=== PATIENT | female | born 1990 | race Caucasian/White ===

== ENCOUNTER 2017-04-20 08:56 | Inpatient (IN) | payer OTHER, SELFPAY | END 2017-04-22 13:20 | disposition home or self-care (01) | DRG 603 | PROVIDERS: Admitting Provider Family Medicine; Emergency Provider Emergency Medicine; Visit Provider Family Medicine | DX: L02.414 Cutaneous abscess of left upper limb (principal); F11.20 Opioid dependence, uncomplicated; L02.512 Cutaneous abscess of left hand; F14.20 Cocaine dependence, uncomplicated; B95.4 Other streptococcus as the cause of diseases classified elsewhere; B95.62 Methicillin resistant Staphylococcus aureus infection as the cause of diseases classified elsewhere; L03.012 Cellulitis of left finger; L03.114 Cellulitis of left upper limb | CPT/HCPCS: 25028; 26989; 36415; 73130; 80048; 80053; 80202; 80305; 81025; 83605; 85025; 85651; 86140; 87040; 87070; 87075; 87077; 87186; 90471; 90714; 99282; 99284; J0131; J2405; J3370 ==

== ENCOUNTER → 2018-12-23 14:25 | Outpatient (CLI) | payer OTHER, SELFPAY ==
[2018-12-23 16:14] LABS: Basophils # 0.1 K/mm3 (0-0.2); Eosinophils # 0.1 K/mm3 (0.0-0.4); Monocytes # 0.7 K/mm3 (0.1-1.0)
[2018-12-23 16:53] LABS: Basophils % 0.6 % (0.1-2.0); Eosinophils % 1.2 % (0.1-12.0); Hematocrit 47.6 % (37.0-47.0); Hemoglobin 15.9 g/dL (12.2-16.2); Lymphocytes # 3.4 K/mm3 (0.7-4.5); Lymphocytes % 29.9 % (10-50); Mean Corpuscular HGB Conc 33.5 g/dL (31.8-35.4); Mean Corpuscular Hemoglobin 31.1 pg (27.0-31.2); Mean Corpuscular Volume 92.9 fl (81-99); Monocytes % 6.3 % (1.7-9.3); Neutrophils # 7.1 K/mm3 (1.8-7.8); Neutrophils % 61.9 % (37.0-80.0); Platelet Count 277 K/mm3 (142-424); Red Blood Count 5.12 M/mm3 (4.20-5.40); Red Cell Distribution Width 13.5 % (11.5-17.5); White Blood Count 11.4 K/mm3 (4.8-10.8)
[2018-12-23 20:29] LABS: Amphetamine/Metha Screen,Urine Negative ng/mL (<1000); Barbiturates Screen,Urine Negative ng/mL (<200); Benzodiazepines Screen,Urine Negative ng/mL (<200); Cannabinoid Screen,Urine Negative ng/mL (<50); Cocaine Screen,Urine Negative ng/mL (<300); Methadone Screen,Urine Negative ng/mL (<300); Opiate Screen,Urine Negative ng/mL (<300); Phencyclidine Screen,Urine Negative ng/mL (<25)
== END ==
PROVIDERS: Visit Provider Obstetrics & Gynecology
DX: Z34.90 Encounter for supervision of normal pregnancy, unspecified, unspecified trimester (principal)
CPT/HCPCS: 36415; 80305; 85025

== ENCOUNTER → 2018-12-31 11:24 | Outpatient (CLI) | payer OTHER, SELFPAY ==
[2018-12-31 12:41] LABS: Basophils # 0.1 K/mm3 (0-0.2); Basophils % 0.5 % (0.1-2.0); Eosinophils # 0.2 K/mm3 (0.0-0.4); Eosinophils % 1.7 % (0.1-12.0); Hematocrit 45.2 % (37.0-47.0); Hemoglobin 15.1 g/dL (12.2-16.2); Lymphocytes # 3.2 K/mm3 (0.7-4.5); Lymphocytes % 35.7 % (10-50); Mean Corpuscular HGB Conc 33.4 g/dL (31.8-35.4); Mean Corpuscular Hemoglobin 31.2 pg (27.0-31.2); Mean Corpuscular Volume 93.3 fl (81-99); Mean Platelet Volume 7.4 fl (7.4-10.4); Monocytes # 0.6 K/mm3 (0.1-1.0); Monocytes % 6.4 % (1.7-9.3); Neutrophils % 55.6 % (37.0-80.0); Platelet Count 288 K/mm3 (142-424); Red Blood Count 4.85 M/mm3 (4.20-5.40); Red Cell Distribution Width 13.5 % (11.5-17.5)
[2018-12-31 18:22] LABS: Thyroid Stimulating Hormone 0.56 uIU/ml (0.358-3.740)
[2019-01-01 06:07] LABS: HIV Screen 4th Generation wRfx Non Reactive (Non Reactive)
[2019-01-02 09:45] LABS: Hepatitis B Surface Antigen Negative (Negative); Rapid Plasma Reagin Ab Titer Non Reactive (NonRea<1:1); Rubella Antibodies, IgG 3.27 index (Immune >0.99)
== END ==
PROVIDERS: Visit Provider Obstetrics & Gynecology
DX: Z34.90 Encounter for supervision of normal pregnancy, unspecified, unspecified trimester (principal)
CPT/HCPCS: 36415; 84443; 85025; 86592; 86762; 86850; 87340

== ENCOUNTER → 2019-01-30 10:12 | Outpatient (CLI) | payer OTHER, SELFPAY ==
[2019-01-31 10:51] LABS: Hep A Ab, IgM Negative (Negative); Hep A Ab, Total Positive (Negative); Hep B Core Ab, Total Negative (Negative)
[2019-02-02 14:22] LABS: HIV Screen 4th Generation wRfx Non Reactive (Non Reactive); Hep B Surface Ab, Qual Reactive (.); Hepatitis B Surface Antigen Negative (Negative)
== END ==
PROVIDERS: Visit Provider Nurse Practitioner Family
DX: Z87.898 Personal history of other specified conditions (principal); B19.20 Unspecified viral hepatitis C without hepatic coma
CPT/HCPCS: 36415; 86703; 86704; 86706; 86708; 87340; 87522; G0432

== ENCOUNTER → 2019-03-11 15:45 | Outpatient (CLI) | payer OTHER, SELFPAY ==
[2019-03-11 16:23] LABS: Basophils % 0.2 % (0.1-2.0); Eosinophils # 0.2 K/mm3 (0.0-0.4); Eosinophils % 1.1 % (0.1-12.0); Hematocrit 39.3 % (37.0-47.0); Hemoglobin 13.3 g/dL (12.2-16.2); Lymphocytes # 3.4 K/mm3 (0.7-4.5); Lymphocytes % 24.3 % (10-50); Mean Corpuscular HGB Conc 33.9 g/dL (31.8-35.4); Mean Corpuscular Hemoglobin 31.6 pg (27.0-31.2); Mean Corpuscular Volume 93.1 fl (81-99); Mean Platelet Volume 8.7 fl (7.4-10.4); Monocytes # 1.2 K/mm3 (0.1-1.0); Monocytes % 8.4 % (1.7-9.3); Neutrophils # 9.4 K/mm3 (1.8-7.8); Platelet Count 247 K/mm3 (142-424); Red Blood Count 4.22 M/mm3 (4.20-5.40); Red Cell Distribution Width 12.8 % (11.5-17.5); White Blood Count 14.2 K/mm3 (4.8-10.8)
[2019-03-11 16:32] LABS: Prothrombin Time 9.4 seconds (9.4-11.8)
[2019-03-11 18:48] LABS: Alanine Aminotransferase 25 U/L (12-78); Albumin/Globulin Ratio 0.9 (1.1-1.8); Alkaline Phosphatase 61 U/L (46-116); Anion Gap 12.9 mEq/L (5-15); Aspartate Amino Transferase 16 U/L (15-37); Bilirubin,Total 0.4 mg/dL (0.2-1.0); Blood Urea Nitrogen 7 mg/dL (7-18); Calcium 8.6 mg/dL (8.5-10.1); Carbon Dioxide 23 mmol/L (21.0-32.0); Chloride 104 mmol/L (98-107); Creatinine,Serum 0.46 mg/dL (0.55-1.02); Estimated Glomerular Filt Rate 162 ml/min (>60); GFR (African American) 196 ML/MIN (>60); Globulin 3.5 gm/dl (1.3-3.2); Glucose 87 mg/dL (74-106); Potassium 3.9 mmoL/L (3.5-5.1); Sodium 136 mmol/L (136-145); Total Protein,Serum 6.5 gm/dL (6.4-8.2)
[2019-03-13 08:13] LABS: Hep A Ab, Total Positive (Negative); Hepatitis B Surface Antigen Negative (Negative)
[2019-03-13 08:17] LABS: Hepatitis B Core Antibody IgM Negative (Negative); Hepatitis B Surf Ab Quant 39.1 mIU/mL (Immunity>9.9)
[2019-03-13 08:18] LABS: HIV Screen 4th Generation wRfx Non Reactive (Non Reactive)
[2019-03-14 12:12] LABS: AFP Value 41.2 ng/mL (.); DIA MoM 1.82 (.); DSR (Second Trimester) 1 IN 5083 (.); Gest. Age on Collection Date 17.1 WEEKS (.); Maternal Age At EDD 28.9 yr (.); OSBR Risk 1 IN 9231 (.); Results Report (.); hCG MoM 0.37 (.); hCG Value 12134 mIU/mL (.); uE3 MoM 1.44 (.); uE3 Value 1.61 ng/mL (.)
[2019-03-14 18:48] LABS: Gestat. Age Based On EDD (.)
[2019-03-17 00:07] LABS: Hepatitis C Genotype 1a (.)
[2019-03-17 03:36] LABS: ALT (SGPT) P5P 20 IU/L (0-40); Alpha 2-Macroglobulins, Qn 237 mg/dL (110-276); Apolipoprotein A-1 227 mg/dL (116-209); Bilirubin, Total 0.2 mg/dL (0.0-1.2); Fibrosis Score 0.03 (0.00-0.21); GGT 22 IU/L (0-60); Haptoglobin 123 mg/dL (34-200); Necroinflammat Activity Grade A0-No activity (.); Necroinflammat Activity Score 0.05 (0.00-0.17)
== END ==
PROVIDERS: Internal Medicine; Visit Provider Obstetrics & Gynecology
DX: Z34.90 Encounter for supervision of normal pregnancy, unspecified, unspecified trimester (principal)
CPT/HCPCS: 36415; 80053; 81596; 82106; 85025; 85610; 86703; 86704; 86706; 86708; 87340; 87522; G0432

== ENCOUNTER → 2019-04-30 08:27 | Outpatient (CLI) | payer OTHER, SELFPAY ==
--- NOTE | 2019-04-30 08:28 | US_ITS ---
PROCEDURE: US OB /MATERNAL DETAIL CLINICAL INDICATION: US OB Complete COMPARISON: No exams were available for comparison FINDINGS: Single viable intrauterine gestation. Cephalic position. Placenta: Anteriorplacenta grade 1. There is average amount fluid. The cervix appears satisfactory. Closed and measuring 3.5 cm in length. Complete survey performed and was unremarkable on the submitted images as in PACS. No discrete anomalies identified on survey imaging by technologist. Active fetus. Three-vessel cord with satisfactory umbilical cord insertion. 4- chamber heart noted. Survey of brain & ventricles Unremarkable. Face and neck survey unremarkable. Diaphragm and chest views unremarkable. Abdomen: Both kidneys noted and unremarkable. Stomach noted and satisfactory. Spine: Survey of the spine satisfactory with no anomalies identified nor imaged. Both arms and legs noted. Amniotic Fluid: Adequate. Maternal adnexa: No significant findings. Average ultrasound age is 24 weeks 6 days. Estimated due date by ultrasound is 08/14/2019. The following parameters are obtained: BPD 25 weeks 1 day, OFD 25 weeks 3 days, HC 24 weeks 5 days, AC 25 weeks 1 day, FL 24 weeks 0 days, cerebellum 25 weeks 4 days, humerus 24 weeks 4 days. Estimated weight is 717 g which is 57th percentile. All parameters correlate. No obvious anomalies. IMPRESSION: Live IUP at 24 weeks 6 days. No obvious anomalies. Please see above for detail Dictated by: Enio Carson MD 05/02/2019 12:39 Electronically signed by Enio Carson MD in [place] 05/02/2019 12:39
--- NOTE | 2019-04-30 08:37 | US_ITS ---
PROCEDURE: US ABDOMEN LIMITED CLINICAL INDICATION: RUQ PAIN COMPARISON: No exams were available for comparison FINDINGS: PANCREAS: Unremarkable. No obvious mass or abnormal fluid collection. No ductal dilatation LIVER: No focal liver lesions demonstrated. Homogeneous echogenicity. No intrahepatic biliary ductal dilatation evident. There is appropriate direction of blood flow within a non dilated portal vein RIGHT KIDNEY: There is some minimal ectasia of the right renal collecting system. GALLBLADDER: Gallstones are present. No gallbladder wall thickening, pericholecystic fluid, or biliary dilatation is evident. IMPRESSION: Cholelithiasis. Minimal ectasia right renal collecting system Dictated by: Enio Carson MD 05/02/2019 12:35 Electronically signed by Enio Carson MD in [place] 05/02/2019 12:35
[2019-04-30 10:05] LABS: Basophils # 0.1 K/mm3 (0-0.2); Basophils % 0.4 % (0.1-2.0); Eosinophils # 0.2 K/mm3 (0.0-0.4); Hematocrit 38.2 % (37.0-47.0); Hemoglobin 13.2 g/dL (12.2-16.2); Lymphocytes # 3.9 K/mm3 (0.7-4.5); Lymphocytes % 25.3 % (10-50); Mean Corpuscular HGB Conc 34.6 g/dL (31.8-35.4); Mean Corpuscular Hemoglobin 31.9 pg (27.0-31.2); Mean Corpuscular Volume 92.2 fl (81-99); Mean Platelet Volume 8.4 fl (7.4-10.4); Monocytes # 1.2 K/mm3 (0.1-1.0); Neutrophils # 10.1 K/mm3 (1.8-7.8); Neutrophils % 65.3 % (37.0-80.0); Platelet Count 241 K/mm3 (142-424); Red Blood Count 4.15 M/mm3 (4.20-5.40); Red Cell Distribution Width 13.3 % (11.5-17.5); White Blood Count 15.5 K/mm3 (4.8-10.8)
[2019-04-30 10:39] LABS: MANUAL DIFFERENTIAL MANUAL DIFFERENTIAL (MANUAL DIFF)
[2019-04-30 11:21] LABS: Eosinophils % 1 % (0-3); Lymphocytes % 22 % (10-50); Monocytes % 9 % (2-9); Neutrophils % 68 % (42-76); Total Cells Counted 100
[2019-04-30 11:22] LABS: Platelet Estimate Normal; RBC Morphology Normal
[2019-04-30 12:18] LABS: Alanine Aminotransferase 23 U/L (12-78); Albumin Level 2.8 gm/dL (3.4-5.0); Albumin/Globulin Ratio 0.8 (1.1-1.8); Alkaline Phosphatase 75 U/L (46-116); Anion Gap 14.6 mEq/L (5-15); Aspartate Amino Transferase 14 U/L (15-37); Bilirubin,Total 0.2 mg/dL (0.2-1.0); Blood Urea Nitrogen 9 mg/dL (7-18); Calcium 8.3 mg/dL (8.5-10.1); Carbon Dioxide 23 mmol/L (21.0-32.0); Chloride 104 mmol/L (98-107); Creatinine,Serum 0.57 mg/dL (0.55-1.02); Estimated Glomerular Filt Rate 126 ml/min (>60); GFR (African American) 153 ML/MIN (>60); Globulin 3.6 gm/dl (1.3-3.2); Glucose 86 mg/dL (74-106); Potassium 3.6 mmoL/L (3.5-5.1); Sodium 138 mmol/L (136-145); Total Protein,Serum 6.4 gm/dL (6.4-8.2)
== END ==
PROVIDERS: PCP Nurse Practitioner Family; Visit Provider Obstetrics & Gynecology
DX: Z36.0 Encounter for antenatal screening for chromosomal anomalies (principal); R76.8 Other specified abnormal immunological findings in serum
CPT/HCPCS: 36415; 76705; 76811; 80053; 85007; 85025

== ENCOUNTER → 2019-05-25 10:52 | Outpatient (CLI) | payer OTHER, SELFPAY ==
[2019-05-25 11:39] LABS: Glucose,Fasting 85 mg/dL (60-105)
[2019-05-25 12:50] LABS: Glucose 1 Hour 148 mg/dL (74-106)
== END ==
PROVIDERS: Visit Provider Obstetrics & Gynecology
DX: Z34.90 Encounter for supervision of normal pregnancy, unspecified, unspecified trimester (principal)
CPT/HCPCS: 36415; 82951

== ENCOUNTER 2019-06-29 20:15 | Outpatient (CLI) | payer MEDICAID, SELFPAY ==
[2019-06-29 20:33] VITALS: BP 124/73; PULSE 99; RESP 16; TEMP 36.7; O2SAT 98; BMI 32.9
== END 2019-06-29 21:20 | disposition home or self-care (01) ==
LOC: OBOUT 20:16 → OB 20:17
PROVIDERS: PCP Emergency Medicine; Visit Provider Obstetrics & Gynecology
DX: O36.8130 Decreased fetal movements, third trimester, not applicable or unspecified (principal); Z3A.32 32 weeks gestation of pregnancy
CPT/HCPCS: 59025; G0463

== ENCOUNTER → 2019-07-14 12:47 | Outpatient (CLI) | payer MEDICAID, SELFPAY ==
--- NOTE | 2019-07-14 12:47 | US_ITS ---
PROCEDURE: US OB FOLLOW UP CLINICAL INDICATION: US OB Growth KIMMY- Chronic anticoagulants Large for gestational age COMPARISON: US OB /MATERNAL DETAIL from 04/30/2019 FINDINGS: There is a single live fetus which is in cephalic presentation. heart and body motion noted. Average ultrasound age is 36 weeks 2 days. BPD 36 weeks 2 days, OFD 38 weeks 3 days, HC 36 weeks 2 days, AC 38 weeks 3 days, FL 34 weeks 1 day. The femur length is somewhat small within FL/AC of 19 percent with normal being 20-24 percent. FL/BPD is 74 percent with normal 71-87 percent. Estimated weight is 3065 g which is 92 percentile. Placenta is anterior the and grade 2. The KIMMY is 12 cm. IMPRESSION: Live IUP at 36 weeks 2 days with an estimated weight of 3065 g which is 92 percentile which is large for gestational age. Please see above for detail Dictated by: Enio Carson MD 07/14/2019 18:52 Electronically signed by Enio Carson MD in [place] 07/14/2019 18:52
== END ==
PROVIDERS: PCP Emergency Medicine; Visit Provider Obstetrics & Gynecology
DX: Z79.01 Long term (current) use of anticoagulants (principal)
CPT/HCPCS: 76816

== ENCOUNTER → 2019-07-21 17:36 | Outpatient (CLI) | payer MEDICAID, SELFPAY | PROVIDERS: Visit Provider Obstetrics & Gynecology | DX: Z34.90 Encounter for supervision of normal pregnancy, unspecified, unspecified trimester (principal) | CPT/HCPCS: 86403 ==

== ENCOUNTER 2019-08-10 15:41 | Inpatient (IN) ==
[2019-08-10 17:13] LABS: Microscopic, Urine URINE MICROSCOPIC (MICROSCOPIC)
[2019-08-10 17:55] LABS: Basophils # 0.1 K/mm3 (0-0.2); Basophils % 0.3 % (0.1-2.0); Eosinophils # 0.2 K/mm3 (0.0-0.4); Eosinophils % 1.1 % (0.1-12.0); Hematocrit 39.9 % (37.0-47.0); Hemoglobin 13.5 g/dL (12.2-16.2); Lymphocytes # 4.6 K/mm3 (0.7-4.5); Lymphocytes % 26.7 % (10-50); Mean Corpuscular HGB Conc 33.9 g/dL (31.8-35.4); Mean Platelet Volume 9.3 fl (7.4-10.4); Monocytes # 1.6 K/mm3 (0.1-1.0); Monocytes % 9.1 % (1.7-9.3); Neutrophils # 10.8 K/mm3 (1.8-7.8); Neutrophils % 62.7 % (37.0-80.0); Platelet Count 240 K/mm3 (142-424); Red Blood Count 4.33 M/mm3 (4.20-5.40); Red Cell Distribution Width 13.9 % (11.5-17.5); White Blood Count 17.2 K/mm3 (4.8-10.8)
[2019-08-10 18:19] LABS: Appearance,Urine CLEAR (Clear); Bilirubin,Urine Negative (Negative); Blood, Urine Negative (Negative); Color,Urine YELLOW (Yellow); Glucose,Urine (UA) Negative (Negative); Ketones,Urine Negative (Negative); Leukocyte Esterase,Urine 1+ (Negative); Protein,Urine Negative (Negative); Specific Gravity, Urine >= 1.030 (1.005-1.030); Urobilinogen,Urine 0.2 EU/dl (0.2)
[2019-08-10 18:32] LABS: Amphetamine/Metha Screen,Urine Negative ng/ml (<1000); Bacteria,Urine 2+ /lpf; Benzodiazepines Screen,Urine Negative ng/ml (<200)
[2019-08-10 18:33] LABS: Barbiturates Screen,Urine Negative ng/ml (<200)
[2019-08-10 18:34] LABS: Cannabinoid Screen,Urine Negative ng/ml (<50); Cocaine Screen,Urine Negative ng/ml (<300)
[2019-08-10 18:35] LABS: Methadone Screen,Urine Negative ng/ml (<300); Opiate Screen,Urine Negative ng/ml (<300)
[2019-08-10 18:36] LABS: Phencyclidine Screen,Urine Negative ng/ml (<25)
[2019-08-10 20:33] LABS: Lymphocytes % 26 % (10-50); Monocytes % 6 % (2-9); Neutrophils % 68 % (42-76); RBC Morphology Normal; Total Cells Counted 100
--- NOTE | 2019-08-11 08:08 | Progress Note ---
[facility] Anesthesia Checklist - Patient Identification Patient Identification: Arm Band, Verbal (Name & ) - Structural Data Admitted From: Home Planned Operative Procedure/s: labor epidural Consent for Planned Operative Procedure(s) Verified: Yes Verified Documents: History and Physical - NPO Status Verified Time NPO: 00:00 - Chart Verification Results Verified: CBC, BMP - Additional verifications Patient : Yes Anesthesia Reactions: No Hx Blood Transfusions: No Blood Transfusion Reaction: No Cephalosporin Allergy: No Previous Colonoscopy: No - Cardiovascular Assessment Heart Sounds: S1 & S2 Pulse Strength: Baseline Pulse Rhythm: Regular Peripheral Edema: No - Airway Assessment C-Spine Mobility Assessed: Yes TMJ Mobility Assessed: Yes Dentition: Good Dentition - Neurological Assessment Level of Consciousness: Awake, Alert, Appropriate Hx Seizures: No Numbness or tingling in extremities: No - Anesthesia Plan Anesthesia Risk discussed: Yes ASA Class: II Anesthesia Type: Epidural [facility] History I have reviewed the patient's past medical history: Yes Medical History: Reports:: Deep Vein Thrombosis *Have you ever received a pneumonia vaccine?: No *Have you received a flu vaccine this season?: Yes Anesthesia experience/problems:: none Laterality Cases: Bilateral: Tonsillectomy Other Surgeries: Yes: Other. No: Amputation: No Fractures: No - *Social History Smoking Status: Current every day smoker Tobacco Type: cigarettes # Packs/Day (cigarettes): 0 Alcohol Intake: never Alcohol Intake Frequency:: other Substance Use Type: former substance user, heroin *Occupational Status:: unemployed Housing: house Household Members: family *Travel in the last 8 weeks: None Family Hx:: No significant family history Para: 1
--- NOTE | 2019-08-11 09:37 | Pharmacy Consult Notes ---
[facility] Pharmacy VTE Monitoring - Patient Demographics Admission date: 08/11/19 Report Date: 08/11/19 Time: 09:37 Allergies/Adverse Reactions: Patient Allergies No Known Allergies Allergy (Verified 08/04/19 11:17) Height: 1.57 m Weight: 86.636 kg - VTE Risk Labs: VTE Related Lab Results Hgb 13.5 g/dL (12.2-16.2) 08/10/19 16:50 Hct 39.9 % (37.0-47.0) 08/10/19 16:50 Plt Count 240 K/mm3 (142-424) 08/10/19 16:50 Clinical Trial Participant: No - Prophylaxis VTE Prophylaxis Ordered?: Yes Types of VTE Prophylaxis: IPCS Knee High
--- NOTE | 2019-08-11 14:19 | Progress Note ---
Labor Note - Subjective: Date: 08/11/19 Time: 10:11 Comment:: 39 week IOL complicated by Hepatitis C, h/o DVT with current anticoagulation therapy, LGA infant and tobacco abuse Last heparin dose was last evening Contractions are regular but small intensity by MVU She is comfortable with epidural heart tracing has remained reassuring - Objective: NST:: Reactive Contractions:: every 2-3 minutes Cervical Dilation:: 3 Effacement:: 25% Station: -2 Membranes: artificially ruptured Comment:: Amniotomy performed without difficulty or complication Copious clear fluid noted with AROM IUPC placed without complication or difficulty Following amniotomy, heart rate deceleration was noted and did not respond to maternal positioning or supplemental O2 Maternal pulse ox gave reading of 64 and external monitor put heart rate at 62 The patient was counseled that it was our preference to avoid placing a scalp electrode in patients with hepatitis C, in order to decrease potential transmission of this virus to the fetus, but because of the apparent bradycardia noted on the external monitor, an internal monitor with a scalp electrode was necessary in order to provide appropriate intervention, if needed, for the fetus and she consented to having the scalp electrode placed Once the scalp electrode was placed, the heart tones were noted to be in the 100's and continued to rise to 130 With the next contraction, a deceleration was noted in the heart rate, but lasted less than 1 minute and had spontaneous resolution Pitocin was discontinued during this time and will be left off until the heart tracing has returned to a stable and reassuring pattern - Assessment: Patient Problems: All Active Problems 39 weeks gestation of (Acute) Bronchitis (Acute) Large for gestational age fetus (Acute) Glucose intolerance of (Acute) Tobacco smoking affecting (Acute) History of intravenous drug abuse (Acute) History of DVT of lower extremity (Acute) (Acute) Hepatitis C (Acute) Medical clearance for incarceration (Acute) Abscess of forearm, left (Acute) Abscess of left hand (Acute) - Plan: Comment:: Pitocin will be resumed once heart tracing has returned to a stable and reassuring pattern Patient was counseled about the medical necessity of the scalp electrode for monitoring the heart rate, as well as the potential increased risk of transmission of hepatitis C to the fetus; 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
--- NOTE | 2019-08-11 19:12 | Progress Note ---
Labor Note - Subjective: Date: 08/11/19 Time: 18:45 Comment:: Regular contractions with sufficient MVU Cervix progressed to 7cm and then complete and 0 station Having heart rate decelerations with contractions and not resolving with changes in maternal position or oxygen Attempted to push from 0 station for delivery and vertex did not descend at all, but heart rate had a prolonged deceleration Will proceed to OR for primary CS for non-reassuring status - Assessment: Patient Problems: All Active Problems 39 weeks gestation of (Acute) Bronchitis (Acute) Large for gestational age fetus (Acute) Glucose intolerance of (Acute) Tobacco smoking affecting (Acute) History of intravenous drug abuse (Acute) History of DVT of lower extremity (Acute) (Acute) Hepatitis C (Acute) Medical clearance for incarceration (Acute) Abscess of forearm, left (Acute) Abscess of left hand (Acute)
--- NOTE | 2019-08-11 20:31 | Operative Note ---
Date of procedure: 08/11/19 Pre-op Diagnosis:: 1. IUP @ 39 0/7 weeks 2. heart rate decelerations 3. LGA 4. Maternal Hepatitis C infection 5. H/O DVT 6. Tobacco abuse Post-op Diagnosis:: 1. IUP @ 39 0/7 weeks 2. heart rate decelerations 3. LGA 4. Maternal Hepatitis C infection 5. H/O DVT 6. Tobacco abuse Procedure performed:: Primary low transverse c section Surgeon:: Columba Avina MD Director Of In Service Education(s):: Marcin Richard MD HOME CARE NURSE:: Demetri Butler Anesthesia: epidural Estimated blood loss (mL): 500 Operative findings:: Vigorous male infant with apgars of 9 & 10 Operative note:: The patient was taken to the OR and epidural was confirmed adequate. The patient had an extensive h/o IV drug abuse and had been stuck multiple times unsuccessfully before IV access had been obtained in her left breast. This IV infiltrated shortly before the time of her c section and was able to be replaced by a 22 gauge in her left ankle, which was still running successfully at the time she arrived in the OR. She was prepped and draped in normal sterile fashion. A pfannenstiel skin incision was made with the scalpel and carried down to the fascia. The fascia was incised in the midline and sharply dissected off the rectus muscles. The muscles were in the midline and the peritoneum was entered sharply and extended bluntly. The Darren-O self retaining retractor was placed in the abdomen and a bladder flap was created. The uterus was incised in the lower uterine segment in a transverse fashion and extended bluntly. The infant was delivered in controlled fashion, without complication or shoulder dystocia. The infant was vigorous at and handed to awaiting pediatricians for evaluation after cord clamped and cut. Cord blood was collected and a cord segment was preserved. The placenta was manually extracted and noted to be intact. The uterus was repaired with 0-vicryl in a running/locked fashion. A second layer was placed for hemostasis. The peritoneum was closed with 2-0 vicryl in a running fashion. The fascia was closed with #1 vicryl in a running fashion. The subcutaneous fat was closed with 2-0 vicryl in an interrupted fashion. The skin was closed with danica. The patient tolerated the procedure well. Sponge, lap, needle and instrument counts were correct x 2. She was taken to PACU awake and in stable condition. EBL: 500cc Condition: stable Disposition: PACU Specimens:: Placenta Complications:: none
--- NOTE | 2019-08-11 20:33 | Progress Note ---
[facility] Anesthesia Record Part I Intake, IV Amount: 2,500 Estimated blood loss (mL): 500 Urine output (mL): 350 Blood Pressure: 108/62 SaO2: 95 Pulse Rate: 75 Respiratory Rate: 12 Temperature: 97.5 F Patient is:: Awake, Stable Stable to PACU at:: 20:25
[2019-08-12 06:58] LABS: Basophils # 0.3 K/mm3 (0-0.2); Basophils % 0.9 % (0.1-2.0); Eosinophils # 0.1 K/mm3 (0.0-0.4); Eosinophils % 0.3 % (0.1-12.0); Hematocrit 29.1 % (37.0-47.0); Hemoglobin 9.9 g/dL (12.2-16.2); Lymphocytes # 6.8 K/mm3 (0.7-4.5); Lymphocytes % 21.3 % (10-50); Mean Corpuscular HGB Conc 34.1 g/dL (31.8-35.4); Mean Corpuscular Volume 92.1 fl (81-99); Mean Platelet Volume 10.7 fl (7.4-10.4); Monocytes # 2.5 K/mm3 (0.1-1.0); Monocytes % 7.7 % (1.7-9.3); Neutrophils # 22.4 K/mm3 (1.8-7.8); Neutrophils % 69.8 % (37.0-80.0); Platelet Count 351 K/mm3 (142-424); Red Blood Count 3.16 M/mm3 (4.20-5.40); Red Cell Distribution Width 14.2 % (11.5-17.5); White Blood Count 32.1 K/mm3 (4.8-10.8)
[2019-08-12 08:17] LABS: Lymphocytes % 19 % (10-50); Monocytes % 6 % (2-9); Neutrophils % 72 % (42-76); RBC Morphology Normal; Total Cells Counted 100
--- NOTE | 2019-08-12 12:16 | Progress Note ---
Internal Medicine - PN: Subj *Date: 08/12/19 *Time: 12:13 Interval history: POD #1 primary CS for non-reassuring status Patient is without complaint Tolerating regular diet Has not voided yet because catheter still in place Asymptomatic with acute blood loss anemia; Hgb 9.9 WBC elevated at 32.1 which may be secondary to active labor but will plan to continue postop antibiotics Exam Vital signs and Labs for Last 24 Hours: Temp Pulse Resp BP Pulse Ox 97.6 F 77 18 116/79 99 08/11/19 20:55 08/11/19 20:55 08/11/19 20:55 08/11/19 20:55 08/11/19 20:55 Laboratory Results - last 24 hr 08/12/19 06:36: WBC 32.1 H* D, RBC 3.16 L D, Hgb 9.9 L, Hct 29.1 L, MCV 92.1, MCH 31.4 H, MCHC 34.1, RDW 14.2, Plt Count 351 D, MPV 10.7 H, Neut % (Auto) 69.8, Lymph % (Auto) 21.3, Gila % (Auto) 7.7, Eos % (Auto) 0.3, Baso % (Auto) 0.9, Neut # (Auto) 22.4 H, Lymph # (Auto) 6.8 H, Gila # (Auto) 2.5 H, Eos # (Auto) 0.1, Baso # (Auto) 0.3 H, Total Counted 100, Neutrophils % (Manual) 72, Lymphocytes % (Manual) 19, Atypical Lymphs % 3.0, Monocytes % (Manual) 6, Platelet Estimate Normal, RBC Morphology Normal I & O for Last 24 hours: Intake & Output 08/10/19 08/11/19 08/12/19 08/13/19 11:59 11:59 11:59 11:59 Intake Total 2750 / 2750 Output Total 800 / 800 Balance 1950 / 1950 Weight 191 lb Microbiology Reports for the Last 24 Hours: Microbiology 08/10/19 15:45 Urine,Clean Catch Urine Culture - Final Multiple organisms, suggests contamination. Narrative: CONSTITUTIONAL: no acute distress HEENT: mucous membranes moist PULMONARY: breathing unlabored without audible wheezes CV: no tachycardia or visible JVD; normal LE peripheral pulses ABD: soft, ND; appropriately tender but no rebound/guarding : fundus firm at/below umbilicus SKIN: incision well approximated with no drainage, erythema or induration EXT: 1+ edema LEs NEURO: alert/oriented, no altered mental status PSYCH: appropriate mood and demeanor without anxiety/depression Assessment and Plan (1) 39 weeks gestation of Current visit: Yes Status: Acute Category: Medical Code(s): Z3A.39 - 39 weeks gestation of (2) Non-reassuring heart rate with late deceleration Current visit: Yes Status: Acute Category: Medical Code(s): O36.8390 - Maternal care for abnormalities of the heart rate or rhythm, unspecified trimester, not applicable or unspecified (3) Delivery by section Current visit: Yes Status: Acute Category: Surgical (4) Hepatitis C Current visit: Yes Status: Acute Category: Medical Code(s): B19.20 - Unspecified viral hepatitis C without hepatic coma (5) History of DVT of lower extremity Current visit: Yes Status: Acute Category: Medical Code(s): Z86.718 - Personal history of other venous thrombosis and embolism (6) History of intravenous drug abuse Current visit: Yes Status: Acute Category: Social Hx Code(s): F19.11 - Other psychoactive substance abuse, in remission (7) Large for gestational age fetus Problem details: EFW 92% Current visit: Yes Status: Acute Category: Medical (8) Anemia due to acute blood loss Current visit: Yes Status: Acute Category: Medical Code(s): D62 - Acute posthemorrhagic anemia (9) Tobacco smoking affecting Current visit: Yes Status: Acute Category: Medical Code(s): O99.330 - Smoking (tobacco) complicating , unspecified trimester - Assessment and plan all Dx Assessment and Plan for all problems:: Routine postop/ care Continue antibiotics Small IV in ankle not holding up and will prescribe po antibiotics Resume prophylactic lovenox in am PNV with FeSO4 for anemia
[2019-08-13 12:27] LABS: Basophils % 0.3 % (0.1-2.0); Eosinophils # 0.1 K/mm3 (0.0-0.4); Eosinophils % 0.7 % (0.1-12.0); Lymphocytes # 4.5 K/mm3 (0.7-4.5); Lymphocytes % 28.5 % (10-50); Mean Corpuscular HGB Conc 36.4 g/dL (31.8-35.4); Mean Corpuscular Volume 88.4 fl (81-99); Mean Platelet Volume 9.4 fl (7.4-10.4); Monocytes # 1.3 K/mm3 (0.1-1.0); Monocytes % 8.2 % (1.7-9.3); Neutrophils # 9.9 K/mm3 (1.8-7.8); Neutrophils % 62.3 % (37.0-80.0); Platelet Count 243 K/mm3 (142-424); Red Cell Distribution Width 14.2 % (11.5-17.5); White Blood Count 15.9 K/mm3 (4.8-10.8)
[2019-08-13 12:32] LABS: Red Blood Count 2.15 M/mm3 (4.20-5.40)
[2019-08-13 12:34] LABS: Hemoglobin 6.9 g/dL (12.2-16.2)
[2019-08-13 12:59] LABS: Lymphocytes % 24 % (10-50); Monocytes % 5 % (2-9); Neutrophils % 71 % (42-76); RBC Morphology Normal; Total Cells Counted 100
[2019-08-13 13:19] LABS: Hematocrit 20.3 % (37.0-47.0)
--- NOTE | 2019-08-13 16:19 | Progress Note ---
Internal Medicine - PN: Subj *Date: 08/13/19 *Time: 14:15 Interval history: POD #2 primary LTCS WBC decreased from 32.1 to 15.9 Hgb also decreased from 9.9 to 7.0 She is clinically asymptomatic with anemia aside from intermittent mild tachycardia Lochia has been appropriate in amount; EBL during CS was 500cc and calculated blood loss by weight was 800 Denies chest pain, shortness of breath or dizziness with ambulation Ambulating & voiding without diffculty and tolerating regular diet Exam Vital signs and Labs for Last 24 Hours: Temp Pulse Resp BP Pulse Ox 97.7 F 113 H 18 131/60 100 08/13/19 11:45 08/13/19 11:45 08/13/19 11:45 08/13/19 11:45 08/13/19 11:45 Laboratory Results - last 24 hr 08/10/19 15:45: Ur Buprenorphine Scrn Negative 08/13/19 12:18: WBC 15.9 H D, RBC 2.15 L D, Hgb 6.9 L*, Hct 19.0 L*, MCV 88.4, MCH 32.1 H, MCHC 36.4 H, RDW 14.2, Plt Count 243 D, MPV 9.4, Neut % (Auto) 62.3, Lymph % (Auto) 28.5, Hart % (Auto) 8.2, Eos % (Auto) 0.7, Baso % (Auto) 0.3, Neut # (Auto) 9.9 H, Lymph # (Auto) 4.5, Hart # (Auto) 1.3 H, Eos # (Auto) 0.1, Baso # (Auto) 0.0, Total Counted 100, Neutrophils % (Manual) 71, Lymphocytes % (Manual) 24, Monocytes % (Manual) 5, Platelet Estimate Normal, RBC Morphology Normal 08/13/19 13:00: Hgb 7.0 L*, Hct 20.3 L* I & O for Last 24 hours: Intake & Output 08/11/19 08/12/19 08/13/19 08/14/19 11:59 11:59 11:59 11:59 Intake Total 2750 / 2750 Output Total 800 / 800 Balance 1950 / 1950 Weight 191 lb Narrative: CONSTITUTIONAL: no acute distress HEENT: mucous membranes moist PULMONARY: breathing unlabored without audible wheezes CV: no tachycardia or visible JVD; normal LE peripheral pulses ABD: soft, ND; appropriately tender but no rebound/guarding : fundus firm at/below umbilicus SKIN: incision well approximated with no drainage, erythema or induration EXT: 1+ edema LEs NEURO: alert/oriented, no altered mental status PSYCH: appropriate mood and demeanor without anxiety/depression Assessment and Plan (1) 39 weeks gestation of Current visit: Yes Status: Acute Category: Medical Code(s): Z3A.39 - 39 weeks gestation of (2) Non-reassuring heart rate with late deceleration Current visit: Yes Status: Acute Category: Medical Code(s): O36.8390 - Maternal care for abnormalities of the heart rate or rhythm, unspecified trimester, not applicable or unspecified (3) Delivery by section Current visit: Yes Status: Acute Category: Surgical (4) Hepatitis C Current visit: Yes Status: Acute Category: Medical Code(s): B19.20 - Unspecified viral hepatitis C without hepatic coma (5) History of DVT of lower extremity Current visit: Yes Status: Acute Category: Medical Code(s): Z86.718 - Personal history of other venous thrombosis and embolism (6) History of intravenous drug abuse Current visit: Yes Status: Acute Category: Social Hx Code(s): F19.11 - Other psychoactive substance abuse, in remission (7) Large for gestational age fetus Problem details: EFW 92% Current visit: Yes Status: Acute Category: Medical (8) Anemia due to acute blood loss Current visit: Yes Status: Acute Category: Medical Code(s): D62 - Acute posthemorrhagic anemia (9) Tobacco smoking affecting Current visit: Yes Status: Acute Category: Medical Code(s): O99.330 - Smoking (tobacco) complicating , unspecified trimester - Assessment and plan all Dx Assessment and Plan for all problems:: Repeat labs in am Clinically stable without transfusion at this point Patient does not want transfusion and would possibly need central line or PICC in order to receive blood products after numerous failed peripheral IVs FeSO4 started BID Continue to monitor
[2019-08-14 06:42] LABS: Hematocrit 18.8 % (37.0-47.0); Hemoglobin 6.3 g/dL (12.2-16.2)
--- NOTE | 2019-08-14 11:03 | Discharge Summary ---
General - General Admission date:: 08/10/19 Discharge date: 08/14/19 HPI HPI: POD #3 primary LTCS Hgb stabilized at 6.3 Patient is asymptomatic with this anemia but has been advised for transfusion 2 units PRBCs prior to discharge Ambulating and voiding without difficulty Tolerating regular diet Hospital Course Rhogam Administration: Not Indicated Objective Vital signs: Temp Pulse Resp BP Pulse Ox 97.9 F 86 20 102/60 L 100 08/14/19 08:00 08/14/19 08:00 08/14/19 08:00 08/14/19 08:00 08/14/19 08:00 Narrative: CONSTITUTIONAL: no acute distress HEENT: mucous membranes moist PULMONARY: breathing unlabored without audible wheezes CV: no tachycardia or visible JVD; normal LE peripheral pulses ABD: soft, ND; appropriately tender but no rebound/guarding : fundus firm at/below umbilicus SKIN: incision well approximated with no drainage, erythema or induration EXT: 1+ edema LEs NEURO: alert/oriented, no altered mental status PSYCH: appropriate mood and demeanor without anxiety/depression Results Labs on day of discharge: Labs from last 24 hours 08/14/19 08/14/19 08/13/19 07:40 06:24 13:00 WBC RBC Hgb 6.3 L* 7.0 L* Hct 18.8 L* 20.3 L* MCV MCH MCHC RDW Plt Count MPV Neut % (Auto) Lymph % (Auto) Candler % (Auto) Eos % (Auto) Baso % (Auto) Neut # (Auto) Lymph # (Auto) Candler # (Auto) Eos # (Auto) Baso # (Auto) Total Counted Neutrophils % (Manual) Lymphocytes % (Manual) Monocytes % (Manual) Platelet Estimate RBC Morphology Blood Type O Positive Antibody Screen Negative Crossmatch (AHG) See Detail 08/13/19 12:18 WBC 15.9 H D RBC 2.15 L D Hgb 6.9 L* Hct 19.0 L* MCV 88.4 MCH 32.1 H MCHC 36.4 H RDW 14.2 Plt Count 243 D MPV 9.4 Neut % (Auto) 62.3 Lymph % (Auto) 28.5 Candler % (Auto) 8.2 Eos % (Auto) 0.7 Baso % (Auto) 0.3 Neut # (Auto) 9.9 H Lymph # (Auto) 4.5 Candler # (Auto) 1.3 H Eos # (Auto) 0.1 Baso # (Auto) 0.0 Total Counted 100 Neutrophils % (Manual) 71 Lymphocytes % (Manual) 24 Monocytes % (Manual) 5 Platelet Estimate Normal RBC Morphology Normal Blood Type Antibody Screen Crossmatch (AHG) DS: Diagnosis - Discharge Diagnosis (1) 39 weeks gestation of Status: Acute (2) Non-reassuring heart rate with late deceleration Status: Acute (3) Delivery by section Status: Acute (4) Hepatitis C Status: Acute (5) History of DVT of lower extremity Status: Acute (6) History of intravenous drug abuse Status: Acute (7) Large for gestational age fetus Status: Acute Problem details: EFW 92% (8) Anemia due to acute blood loss Status: Acute (9) Tobacco smoking affecting Status: Acute Discharge Plan - Patient Discharge Instructions ACTIVITY: Continue current activity DIET: regular diet Additional Instructions: No heavy lifting, no driving for 2 weeks or while taking prescription narcotics, nothing in the vagina for 6 weeks. Patient Instructions: Depression, Hemorrhage, DI for , DI for Pre-eclampsia, DI for Surgical Site Infection, DI for Postoperative Pain, [facility] Post Discharge Instructions, Preventing the Sp read of Coronavirus Discharge Instructions - Follow up Plan Follow up with: Columba Avina MD [Staff Physician] - Disposition: Home, Self-Shelter Medications: Home Medications Medication Instructions Recorded Confirmed Type prenat.vits,rambo,hga-gtvk-fogos 1 tab PO DAILY 02/12/19 08/10/19 History heparin (porcine) 10,000 unit/mL 10,000 unit SQ Q12H 08/10/19 08/10/19 History injection solution Ferrous Sulfate [Ferrous Sulfate 325 mg PO BID #60 tab 08/14/19 Rx 325mg Tablet] Ketorolac Tromethamine [Toradol 10 mg PO Q6H #30 tab 08/14/19 Rx 10mg tablet] Oxycodone HCl [OxyIR 5mg tablet] 10 mg PO Q6HP PRN #24 tablet 08/14/19 Rx Prescriptions/Medication Reconciliation: New Oxycodone HCl [OxyIR 5mg tablet] 10 mg PO Q6HP PRN #24 tablet PRN Reason: Severe Pain Ketorolac Tromethamine [Toradol 10mg tablet] 10 mg PO Q6H #30 tab Ferrous Sulfate [Ferrous Sulfate 325mg Tablet] 325 mg PO BID #60 tab Continued prenat.vits,rambo,zmi-vdux-gskhm 1 tab PO DAILY No Action heparin (porcine) 10,000 unit/mL injection solution 10,000 unit SQ Q12H - Problem Reconciliation Problems Reviewed?: Yes
[2019-08-14 16:24] VITALS: BP 105/55
[2019-08-14 16:35] LABS: Hematocrit 25.7 % (37.0-47.0)
[2019-08-14 16:47] LABS: Hemoglobin 9.2 g/dL (12.2-16.2)
== END 2019-08-14 18:40 | disposition home or self-care (01) | DRG 787 ==
LOC: OB 15:41
PROVIDERS: ADMIT Obstetrics & Gynecology; ATTEND Obstetrics & Gynecology
CPT/HCPCS: 36415; 59025; 80305; 80307; 81001; 85007; 85014; 85018; 85025; 86850; 87086; 90732; C1758; P9016

== ENCOUNTER → 2019-08-25 13:53 | Outpatient (CLI) | payer MEDICAID, SELFPAY ==
[2019-08-25 14:26] LABS: Basophils # 0.1 K/mm3 (0-0.2); Basophils % 0.5 % (0.1-2.0); Eosinophils # 0.4 K/mm3 (0.0-0.4); Eosinophils % 3.2 % (0.1-12.0); Hemoglobin 11.6 g/dL (12.2-16.2); Lymphocytes # 3.2 K/mm3 (0.7-4.5); Lymphocytes % 25.3 % (10-50); Mean Corpuscular HGB Conc 33.2 g/dL (31.8-35.4); Mean Corpuscular Hemoglobin 29.9 pg (27.0-31.2); Monocytes # 0.9 K/mm3 (0.1-1.0); Monocytes % 7.4 % (1.7-9.3); Neutrophils # 7.9 K/mm3 (1.8-7.8); Neutrophils % 63.6 % (37.0-80.0); Platelet Count 603 K/mm3 (142-424); Red Blood Count 3.89 M/mm3 (4.20-5.40); Red Cell Distribution Width 15.5 % (11.5-17.5); White Blood Count 12.5 K/mm3 (4.8-10.8)
== END ==
PROVIDERS: Visit Provider Obstetrics & Gynecology
DX: T81.40XA Infection following a procedure, unspecified, initial encounter (principal)
CPT/HCPCS: 36415; 85025

== ENCOUNTER 2019-09-01 14:12 | Emergency (ER) | payer MEDICAID, SELFPAY ==
[2019-09-01 14:21] VITALS: BP 134/83; PULSE 85; RESP 17; TEMP 36.7; O2SAT 100; BMI 30.2
--- NOTE | 2019-09-01 14:26 | CT_ITS ---
PROCEDURE: CT ABDOMEN PELVIS W CON CLINICAL INDICATION: r/o abscess vs. cellulitis. recent c section Recent pain and swelling on left side of the abdomen, loss of COMPARISON: ABDPELW CT ABD PELVIS W/ CONTRAST from 07/11/2015 TECHNIQUE: IV Contrast: 75ML OPTIRAY 350 Oral Contrast none the Axial images obtained with sagittal and coronal reformats. All CT scans at the facility use one or more dose reduction, viz: automated exposure control, ma/kV adjustment per patient size (including targeted exams where dose is matched to indication, i.e. head), or iterative reconstruction technique. FINDINGS: LOWER THORAX: No acute finding ABDOMEN & PELVIS: The liver, spleen, adrenal glands, and pancreas have an unremarkable appearance. Questionable density noted in the gallbladder which could be due to small stones or sludge. Unremarkable appearing kidneys. No intestinal obstruction or free air. No evidence of appendicitis. The uterus is enlarged with heterogeneous density of the endometrial area with a small focus of gas in the endometrial canal at the fundal area. There is heterogeneous density of the anterior abdominal wall inferiorly. The abdominal musculature is enlarged with heterogeneous attenuation. There is multilocular areas of decreased attenuation within the anterior abdominal wall inferiorly. This measures up to 12 cm transverse and 1.7 cm AP. There is an extension of this hypodensity in the left lower abdominal wall laterally to the subcutaneous region. This area measures approximately 4 by 2 cm. IMPRESSION: Heterogeneous enlargement of the lower abdominal wall at suspected area and may consistent with hematoma and or abscess development with extension into the subcutaneous tissues on the left laterally. Enlarged uterus with heterogeneous endometrium in keeping with patient's post gravid state. The small bubble air is present within the endometrium at the fundal area and could be due to the recent . Gas-forming infection is not excluded. Dictated by: Enio Carson MD 09/01/2019 16:03 Electronically signed by Enio Carson MD in [place] 09/01/2019 16:03
[2019-09-01 14:34] LABS: Microscopic, Urine URINE MICROSCOPIC (MICROSCOPIC)
[2019-09-01 14:38] LABS: Appearance,Urine CLEAR (Clear); Bilirubin,Urine Negative (Negative); Blood, Urine 2+ (Negative); Color,Urine YELLOW (Yellow); Glucose,Urine (UA) Negative (Negative); Ketones,Urine Negative (Negative); Leukocyte Esterase,Urine 2+ (Negative); Nitrate,Urine Negative (Negative); Protein,Urine Negative (Negative); Specific Gravity, Urine 1.025 (1.005-1.030); Urobilinogen,Urine 0.2 EU/dl (0.2)
[2019-09-01 14:46] LABS: Bacteria,Urine 2+ /lpf; Urine Pregnancy, HCG Qual. Negative (Negative); WBC,Urine 20-50 #/hpf (0-3)
[2019-09-01 14:53] LABS: Basophils # 0.2 K/mm3 (0-0.2); Basophils % 1.7 % (0.1-2.0); Eosinophils # 0.4 K/mm3 (0.0-0.4); Eosinophils % 4.5 % (0.1-12.0); Hematocrit 40.5 % (37.0-47.0); Hemoglobin 13.6 g/dL (12.2-16.2); Lymphocytes # 3.7 K/mm3 (0.7-4.5); Lymphocytes % 38.5 % (10-50); Mean Corpuscular HGB Conc 33.7 g/dL (31.8-35.4); Mean Corpuscular Hemoglobin 29.9 pg (27.0-31.2); Mean Corpuscular Volume 88.7 fl (81-99); Monocytes # 0.8 K/mm3 (0.1-1.0); Monocytes % 8.5 % (1.7-9.3); Neutrophils # 4.4 K/mm3 (1.8-7.8); Neutrophils % 46.8 % (37.0-80.0); Platelet Count 460 K/mm3 (142-424); Red Blood Count 4.56 M/mm3 (4.20-5.40); Red Cell Distribution Width 14.4 % (11.5-17.5); White Blood Count 9.5 K/mm3 (4.8-10.8)
--- NOTE | 2019-09-01 14:56 | HMH.EDGENADL ---
ED Disposition Clinical Impression: Postprocedural hematoma of abdominal wall Disposition: Home, Self-Care Condition on Discharge: Fair Additional Instructions: Continue Keflex. Percocet for pain. Dr. Avina's office will call you to arrange follow-up appointment. Additional instructions for CONTROLLED SUBSTANCES: You have been prescribed a medication that is a controlled substance. Controlled substances include pain medications known as opiates and sedative nerve medications known as benzodiazepines. Tramadol, fioricet, and gabapentin are also controlled substances. Some common opiates include: Codeine (such as Tylenol #3) Hydrocodone (Vicodin, Lortab, Lorcet, Lindsay) Oxycodone (Percocet, Percodan, Oxycodone, Oxy IR) Some common benzodiazepines include: Diazepam (Valium) Lorazepam (Ativan) Alprazolam (Xanax) Clonazepam (Klonopin) Oxazepam (Serax) All of these controlled substances are highly addictive and frequently abused. Misuse can and frequently does lead to addiction as well as overdose and . Medication should be stored in a locked cabinet or other secure storage unit. Do not store the medication in a motor vehicle. Short term supplies, 3 days or less, are prescribed because of the highly addictive nature of the medication. Any of the controlled substance medication NOT taken should be disposed of properly and NOT SAVED. The recommended method of disposing of unused medications is: Place the medicines in a sealable plastic bag. If the medicine is a solid, crush it or add water to dissolve it. Add something undesirable (cat litter, coffee grounds, etc.) Dispose of sealed bag in household trash Do not flush or pour unused medicines down a sink or drain. Controlled substances should not be shared, given away or sold. Because of the addictive nature and frequent abuse, these medications are sometimes stolen. These medications should be kept in a safe place where they cannot be stolen. Do not keep them in your car or purse. Lost or stolen prescriptions for controlled substances WILL NOT BE REFILLED in this emergency department, regardless of whether a police report was filed. Prescriptions: Oxycodone HCl/Acetaminophen [Percocet 5/325mg tablet] 1 tab PO Q6HP PRN #10 tablet PRN Reason: Moderate To Severe Pain Transmission Status: Sent to [id number] Referrals: Conrad Mishra MD [Primary Care Provider] - - Critical Care Critical Care Time: No Attestation: On 09/01/19, the high probability of a clinically significant, sudden or life threatening deterioration of the following system(s) required my full and direct attention, intervention and personal management. The time I documented below is in addition to time spent performing reported procedures but includes the following listed in this critical care notation. Medical Decision Making - Shaheed Inquiry Pt receiving controlled substance: Yes Shaheed was queried for this patient: No Reason not queried -: Emergent pt cond-no time Risks and benefits of using a controlled substance: were not discussed with pt by me Vital Signs: 09/01/19 14:21 Temperature 98.1 F Temperature Source Oral Pulse Rate [Right Radial] 85 Respiratory Rate 17 Blood Pressure [Right Arm] 134/83 Blood Pressure Mean [Right Arm] 100 02 Sat by Pulse Oximetry 100 Oxygen Delivery Method Room Air - Lab Data Lab Results 09/01/19 14:14: Urine Color Yellow, Urine Appearance Clear, Urine pH 6.0, Ur Specific [place] 1.025, Urine Protein Negative, Urine Glucose (UA) Negative, Urine Ketones Negative, Urine Blood 2+, Urine Nitrate Negative, Urine Bilirubin Negative, Urine Urobilinogen 0.2, Ur Leukocyte Esterase 2+ A, Urine RBC 10-20, Urine WBC 20-50, Ur Squamous Epith Cells 5-10, Urine Bacteria 2+ 09/01/19 14:14: Urine HCG, Qual Negative 09/01/19 14:39: WBC 9.5, RBC 4.56, Hgb 13.6, Hct 40.5, MCV 88.7, MCH 29.9, MCHC 33.7, RDW 14.4, Plt Count 460 H, MPV 8.0, Neut
[2019-09-01 14:59] LABS: Alanine Aminotransferase 30 U/L (12-78); Albumin Level 4.5 g/dl (3.5-5.0); Albumin/Globulin Ratio 1.3 (1.1-1.8); Alkaline Phosphatase 106 U/L (38-126); Anion Gap 12.4 mEq/L (5-15); Aspartate Amino Transferase 39 U/L (14-36); Bilirubin,Total 0.5 mg/dl (0.2-1.3); Blood Urea Nitrogen 9 mg/dl (7-17); Calcium 9.7 mg/dl (8.4-10.2); Carbon Dioxide 23 mmol/L (22.0-30.0); Chloride 106 mmol/L (98-107); Creatinine Clearance Estimated 163 mL/min (50-200); Estimated Glomerular Filt Rate 118 ml/min (>60); GFR (African American) 143 ML/MIN (>60); Globulin 3.5 g/dL (1.3-3.2); Glucose 110 mg/dl (74-100); Potassium 3.4 mmoL/L (3.5-5.1); Sodium 138 mmol/L (136-145)
[2019-09-01 15:01] LABS: Lactic Acid 2.5 mmol/L (0.7-2.1)
--- NOTE | 2019-09-01 16:49 | PC.NURSE ---
dr sam consulting with dr bran concerning patient findings.
--- NOTE | 2019-09-01 17:03 | PC.NURSE ---
dr sam consulting with dr bran once again after discussing patient findings with dr qiu for clarification.
[2019-09-01 17:32] VITALS: BP 119/79; PULSE 74; RESP 18; TEMP 36.7; O2SAT 100
== END 2019-09-01 17:35 | disposition home or self-care (01) ==
PROVIDERS: Emergency Provider Emergency Medicine; PCP Emergency Medicine
DX: N99.840 Postprocedural hematoma of a genitourinary system organ or structure following a genitourinary system procedure (principal); Z86.718 Personal history of other venous thrombosis and embolism; F17.210 Nicotine dependence, cigarettes, uncomplicated
CPT/HCPCS: 74177; 80053; 81001; 81025; 83605; 85025; 87040; 87086; 96374; 96375; 99284; J2405; Q9967

== ENCOUNTER 2019-10-16 17:20 | Emergency (ER) | payer MEDICAID, SELFPAY ==
[2019-10-16 17:22] VITALS: BP 150/92; PULSE 95; RESP 18; TEMP 37.3; O2SAT 99; BMI 27.4
--- NOTE | 2019-10-16 17:41 | HMH.EDABDPAI ---
ED Disposition Clinical Impression: Scar tissue Abdominal pain Qualifiers: Abdominal location: left lower quadrant Qualified Code(s): R10.32 - Left lower quadrant pain Disposition: Home, Self-Care Condition on Discharge: Good Instructions: Scar Tissue (Alternative Therapy), DI for Acute Abdomen Additional Instructions: You have been evaluated for abdominal pain near your scar. Please take Tylenol and ibuprofen for pain. Follow-up with your [employer]TER MANAGER, Dr. Avina, as soon as available. Return to the emergency department if you have new or worsening pain, vomiting, other concerns. Referrals: Conrad Mishra MD [Primary Care Provider] - Time of Disposition: 19:50 - Critical Care Critical Care Time: No Attestation: On , the high probability of a clinically significant, sudden or life threatening deterioration of the following system(s) required my full and direct attention, intervention and personal management. The time I documented below is in addition to time spent performing reported procedures but includes the following listed in this critical care notation. Medical Decision Making - Shaheed Inquiry Pt receiving controlled substance: No Vital Signs: 10/16/19 17:22 Temperature 99.1 F Temperature Source Oral Pulse Rate [Right] 95 H Respiratory Rate 18 Blood Pressure [Right Arm] 150/92 H Blood Pressure Mean [Right Arm] 111 02 Sat by Pulse Oximetry 99 - Lab Data Lab Results 10/16/19 17:35: Urine Color Yellow, Urine Appearance Clear, Urine pH 6.0, Ur Specific [place] >= 1.030, Urine Protein Trace, Urine Glucose (UA) Negative, Urine Ketones Trace, Urine Blood Negative, Urine Nitrate Negative, Urine Bilirubin Negative, Urine Urobilinogen 1.0, Ur Leukocyte Esterase Negative, Urine RBC None, Urine WBC Occasional, Ur Squamous Epith Cells 10-20, Amorphous Sediment 1+, Urine Bacteria None, Urine Mucus 1+ 10/16/19 17:35: Urine HCG, Qual Negative 10/16/19 18:18: WBC 8.4, RBC 4.85, Hgb 14.9, Hct 42.6, MCV 87.8, MCH 30.7, MCHC 34.9, RDW 14.5, Plt Count 239, MPV 9.1, Neut % (Auto) 47.9, Lymph % (Auto) 40.6, [place] % (Auto) 8.5, Eos % (Auto) 2.3, Baso % (Auto) 0.7, Neut # (Auto) 4.0, Lymph # (Auto) 3.4, [place] # (Auto) 0.7, Eos # (Auto) 0.2, Baso # (Auto) 0.1 10/16/19 18:30: Sodium 140, Potassium 3.5, Chloride 111 H, Carbon Dioxide 22, Anion Gap 10.5, BUN 14, Creatinine 0.60, Estimated Creat Clear 149, Estimated GFR 118, Est GFR ( Amer) 143, Glucose 93, Calcium 9.0, Total Bilirubin 0.7, AST 33, ALT 35, Alkaline Phosphatase 76, Total Protein 7.3, Albumin 4.2, Globulin 3.1, Albumin/Globulin Ratio 1.4, Amylase 60 10/16/19 18:30: Lipase 98 Result diagrams: 10/16/19 18:18 10/16/19 18:30 Orders (Tests/Meds): ED MEDICATIONS Generic Name Dose Route Start Last Admin Trade Name Freq PRN Reason Stop Dose Admin Sodium Chloride 1,000 mls @ 999 mls/hr 10/16/19 18:45 10/16/19 18:45 Sod Chlor 0.9% 1000ml Bag IV 10/16/19 19:45 999 mls/hr .[id number] MARILYN Administration Discontinued Medications Generic Name Dose Route Start Last Admin Trade Name Freq PRN Reason Stop Dose Admin Morphine Sulfate 4 mg 10/16/19 18:35 10/16/19 18:43 Morphine 4mg/Ml Syringe IV 10/16/19 18:36 4 mg ONCE ONE Administration Ondansetron HCl 4 mg 10/16/19 18:43 10/16/19 18:43 Zofran 4mg/2ml Vial IV 10/16/19 18:44 4 mg ONCE ONE Administration Ondansetron HCl 4 mg 10/16/19 18:43 10/16/19 18:25 Zofran 4mg Odt SL 10/16/19 18:44 4 mg ONCE ONE Administration ORDERS Category Date Time Status CT abdomen pelvis w con Stat Cat Scan 10/16/19 18:05 Taken - CT Data CT Scan: Abdomen Time Received: 19:[address] Reviewed: Yes: I have reviewed the patient's CT results, I have viewed the radiologist's interpretation Findings Narrative: No acute intra-abdominal or intrapelvic abnormality Physiologic free fluid Regular soft tissue density in the left lower quadrant, could be scar tissue, less likely de
[2019-10-16 17:53] LABS: Appearance,Urine CLEAR (Clear); Blood, Urine Negative (Negative); Color,Urine YELLOW (Yellow); Glucose,Urine (UA) Negative (Negative); Ketones,Urine TRACE (Negative); Leukocyte Esterase,Urine Negative (Negative); Microscopic, Urine URINE MICROSCOPIC (MICROSCOPIC); Nitrate,Urine Negative (Negative); Protein,Urine TRACE (Negative); Specific Gravity, Urine >= 1.030 (1.005-1.030)
[2019-10-16 17:56] LABS: Urine Pregnancy, HCG Qual. Negative (Negative)
[2019-10-16 17:59] LABS: Amorphous Sediment,Urine 1+ /lpf; Bilirubin,Urine Negative (Negative); Mucus,Urine 1+ /lpf; WBC,Urine Occasional #/hpf (0-3)
--- NOTE | 2019-10-16 18:05 | CT_ITS ---
PROCEDURE: CT ABDOMEN PELVIS W CON CLINICAL INDICATION: abd pain Lower abdominal pain with vomiting, recent COMPARISON: CT ABDOMEN PELVIS W CON from 09/01/2019 TECHNIQUE: IV Contrast: 75ML OPTIRAY 350 Oral Contrast none Axial images obtained with sagittal and coronal reformats. All CT scans at the facility use one or more dose reduction, viz: automated exposure control, ma/kV adjustment per patient size (including targeted exams where dose is matched to indication, i.e. head), or iterative reconstruction technique. FINDINGS: LOWER THORAX: No acute finding ABDOMEN & PELVIS: The liver, spleen, adrenal glands, pancreas, and kidneys have an unremarkable appearance. There is some minimal ectasia of the right renal collecting system and right ureter without obvious obstructing stone. No evidence of appendicitis or diverticulitis. There is some nodularity noted medial to the cecum and may only be due to non-opacified bowel or overlap of the appendix versus a small lymph node at 1.3 cm. No intestinal obstruction or free air. The uterus is bulky with an IUD in place. There is some mild haziness of the anterior peritoneal fat in the lower pelvis and there postsurgical changes of the anterior abdominal wall. Previously noted hematoma has shown moderate improvement. No abscess is evident. No acute bony findings are evident. Gas density is present in the vagina consistent with an indwelling tampon. There is a trace amount of fluid in the pelvis. There remains some infiltration of the abdominal wall fat especially in the left lower pelvic region and could be related to some residual inflammation/hemorrhage or scarring IMPRESSION: 1. No definite acute abdominal or pelvic findings. 2. Bulky uterus with IUD in place. Abdominal wall hematoma has improved. There remains some infiltration of the abdominal wall fat especially in the left lower pelvic region and could be related to some residual inflammation/hemorrhage or scarring. Dictated by: Enio Carson MD 10/16/2019 23:56 Electronically signed by Enio Carson MD in [place] 10/16/2019 23:56
--- NOTE | 2019-10-16 18:27 | PC.NURSE ---
Unable to obtain IV access, notified
[2019-10-16 18:37] LABS: Basophils # 0.1 K/mm3 (0-0.2); Basophils % 0.7 % (0.1-2.0); Eosinophils # 0.2 K/mm3 (0.0-0.4); Eosinophils % 2.3 % (0.1-12.0); Hematocrit 42.6 % (37.0-47.0); Hemoglobin 14.9 g/dL (12.2-16.2); Lymphocytes # 3.4 K/mm3 (0.7-4.5); Lymphocytes % 40.6 % (10-50); Mean Corpuscular HGB Conc 34.9 g/dL (31.8-35.4); Mean Corpuscular Hemoglobin 30.7 pg (27.0-31.2); Mean Corpuscular Volume 87.8 fl (81-99); Mean Platelet Volume 9.1 fl (7.4-10.4); Monocytes # 0.7 K/mm3 (0.1-1.0); Monocytes % 8.5 % (1.7-9.3); Neutrophils % 47.9 % (37.0-80.0); Platelet Count 239 K/mm3 (142-424); Red Blood Count 4.85 M/mm3 (4.20-5.40); Red Cell Distribution Width 14.5 % (11.5-17.5); White Blood Count 8.4 K/mm3 (4.8-10.8)
[2019-10-16 18:47] LABS: Chloride 111 mmol/L (98-107); Potassium 3.5 mmoL/L (3.5-5.1); Sodium 140 mmol/L (136-145)
[2019-10-16 18:49] LABS: Amylase 60 U/L (30-110)
[2019-10-16 18:50] LABS: Alanine Aminotransferase 35 U/L (12-78); Albumin Level 4.2 g/dl (3.5-5.0); Albumin/Globulin Ratio 1.4 (1.1-1.8); Alkaline Phosphatase 76 U/L (38-126); Anion Gap 10.5 mEq/L (5-15); Aspartate Amino Transferase 33 U/L (14-36); Bilirubin,Total 0.7 mg/dl (0.2-1.3); Blood Urea Nitrogen 14 mg/dl (7-17); Carbon Dioxide 22 mmol/L (22.0-30.0); Creatinine Clearance Estimated 149 mL/min (50-200); Estimated Glomerular Filt Rate 118 ml/min (>60); GFR (African American) 143 ML/MIN (>60); Globulin 3.1 g/dL (1.3-3.2); Glucose 93 mg/dl (74-100); Lipase 98 U/L (23-300); Total Protein,Serum 7.3 g/dl (6.3-8.2)
[2019-10-16 20:06] VITALS: BP 138/73; PULSE 71; RESP 18; TEMP 36.7; O2SAT 99
== END 2019-10-16 20:08 | disposition home or self-care (01) ==
PROVIDERS: Emergency Provider Emergency Medicine; PCP Emergency Medicine
DX: L90.5 Scar conditions and fibrosis of skin (principal); R10.32 Left lower quadrant pain; F19.11 Other psychoactive substance abuse, in remission; F17.210 Nicotine dependence, cigarettes, uncomplicated
CPT/HCPCS: 74177; 80053; 81001; 81025; 82150; 83690; 85025; 96365; 96375; 99283; J2405; Q9967

== ENCOUNTER → 2019-10-23 13:01 | Outpatient (CLI) | payer MEDICAID, SELFPAY ==
--- NOTE | 2019-10-23 13:05 | XR_ITS ---
PROCEDURE: XR THORACIC SPINE 3V CLINICAL INDICATION: Mid Back pain Mid back pain COMPARISON: No exams were available for comparison FINDINGS: There is minimal upper thoracic curvature convex right. No acute fracture or dislocation is evident. There is mild generalized spondylosis of the thoracic spine with small ventral osteophytes and decrease in the disc spaces. IMPRESSION: Mild thoracic spondylosis, no acute finding Dictated by: Enio Carson MD 10/23/2019 13:54 Electronically signed by Enio Carson MD in [place] 10/23/2019 13:54
== END ==
PROVIDERS: PCP Emergency Medicine; Visit Provider Nurse Practitioner Family
DX: M54.6 Pain in thoracic spine (principal)
CPT/HCPCS: 72072

== ENCOUNTER 2019-10-25 21:52 | Emergency (ER) | payer MEDICAID, SELFPAY ==
[2019-10-25 22:10] VITALS: BP 157/99; PULSE 78; RESP 16; TEMP 37.8; O2SAT 98; BMI 27.4
--- NOTE | 2019-10-25 22:19 | CT_ITS ---
PROCEDURE: CT LUMBAR SPINE WO CON CLINICAL HISTORY: fell down stairs Back pain following injury, low back pain following trauma, blunt trauma with contusion or hematoma/abrasion COMPARISON: CT CERVICAL SPINE WO CON from 10/25/2019 TECHNIQUE: Axial images obtained with sagittal and coronal reformats. All CT scans at the facility use one or more dose reduction, viz: automated exposure control, ma/kV adjustment per patient size (including targeted exams where dose is matched to indication, i.e. head), or iterative reconstruction technique. FINDINGS: Normal alignment. No acute fracture or dislocation. No lytic or blastic change. No canal stenosis. There is an IUD in place. IMPRESSION: No acute finding Dictated by: Enio Carson MD 10/26/2019 08:06 Electronically signed by Enio Carson MD in [place] 10/26/2019 08:06
--- NOTE | 2019-10-25 22:19 | CT_ITS ---
PROCEDURE: CT THORACIC SPINE WO CON CLINICAL HISTORY: fell down stairs Back injury with pain, contusion/abrasion or hematoma, thoracic sprain/strain Centralized back pain following injury/blunt trauma COMPARISON: No exams were available for comparison TECHNIQUE: Axial images obtained with sagittal and coronal reformats. All CT scans at the facility use one or more dose reduction, viz: automated exposure control, ma/kV adjustment per patient size (including targeted exams where dose is matched to indication, i.e. head), or iterative reconstruction technique. FINDINGS: Normal alignment. No acute fracture or dislocation. There is mild degenerative disc disease with small ventral osteophytes T6-T12. There is minimal midthoracic curvature convex right. No bony canal stenosis IMPRESSION: Mild thoracic spondylosis, no acute finding Dictated by: Enio Carson MD 10/26/2019 08:04 Electronically signed by Enio Carson MD in [place] 10/26/2019 08:04
--- NOTE | 2019-10-25 22:19 | CT_ITS ---
PROCEDURE: CT CERVICAL SPINE WO CON CLINICAL INDICATION: fell down stairs Neck injury with pain, contusion/abrasion or hematoma, cervical sprain/strain the COMPARISON: No exams were available for comparison TECHNIQUE: Axial images obtained with sagittal and coronal reformats. All CT scans at the facility use one or more dose reduction, viz: automated exposure control, ma/kV adjustment per patient size (including targeted exams where dose is matched to indication, i.e. head), or iterative reconstruction technique. Axial spiral CT scanning performed of the cervical spine beginning at the base of the skull and continuing to the upper T-spine. 3-D multiplanar reconstruction with 3-D manipulation of volumetric data set in image rendering was completed by the radiologist and/or technologist with the supervision of the radiologist on independent workstation. FINDINGS: No fracture nor subluxation is evident. Normal prevertebral soft tissues. Facets, neural foramen and vertebral bodies intact and unremarkable. Normal C1/C2 relationships. Apices of lungs are clear with no acute findings. IMPRESSION: Cervical spine intact with no fracture nor subluxation. Dictated by: Enio Carson MD 10/26/2019 08:01 Electronically signed by Enio Carson MD in [place] 10/26/2019 08:01
--- NOTE | 2019-10-25 22:28 | HMH.EDBACK ---
ED Disposition Clinical Impression: Lumbar radiculopathy, Thoracic spine pain Disposition: Home, Self-Care Condition on Discharge: Good Instructions: DI for Low Back Pain Additional Instructions: ice and call pcp for follow up Referrals: Conrad Mishra MD [Primary Care Provider] - - Critical Care Critical Care Time: No Attestation: On 10/25/19, the high probability of a clinically significant, sudden or life threatening deterioration of the following system(s) required my full and direct attention, intervention and personal management. The time I documented below is in addition to time spent performing reported procedures but includes the following listed in this critical care notation. Medical Decision Making - Medical Records Medical records reviewed: Yes: I reviewed the patient's medical records. - Shaheed Inquiry Pt receiving controlled substance: No Vital Signs: 10/25/19 22:10 Temperature 100.1 F H Temperature Source Oral Pulse Rate [Right] 78 Respiratory Rate 16 Blood Pressure [Right Arm] 157/99 H Blood Pressure Mean [Right Arm] 118 Blood Pressure Source [Right Arm] Automatic Cuff Blood Pressure Position [Right Arm] Supine 02 Sat by Pulse Oximetry 98 Oxygen Delivery Method Room Air - Lab Data Lab results reviewed: Yes: I reviewed the patient's lab results. Lab Results 10/25/19 22:20: Urine Color Yellow, Urine Appearance Cloudy, Urine pH 7.0, Ur Specific [place] 1.025, Urine Protein Negative, Urine Glucose (UA) Negative, Urine Ketones Negative, Urine Blood 3+, Urine Nitrate Negative, Urine Bilirubin Negative, Urine Urobilinogen 1.0, Ur Leukocyte Esterase 1+ A, Urine RBC 5-10, Urine WBC 5-10, Ur Squamous Epith Cells 5-10, Amorphous Sediment 4+ 10/25/19 22:20: Urine HCG, Qual Negative Orders (Tests/Meds): ED MEDICATIONS Discontinued Medications Generic Name Dose Route Start Last Admin Trade Name Freq PRN Reason Stop Dose Admin Acetaminophen/Codeine Phosphate 1 joya 10/26/19 00:55 Acetaminophen W/Codeine #3 Take Home Pack (6) PO 10/26/19 00:56 ONCE ONE Butorphanol Tartrate 1 mg 10/26/19 00:55 Stadol 1mg/1ml Vial IM 10/26/19 00:56 ONCE ONE Ketorolac Tromethamine 60 mg 10/25/19 23:34 10/25/19 23:38 Toradol 60mg/2ml Vial IM 10/25/19 23:35 60 mg ONCE ONE Administration Promethazine HCl 25 mg 10/26/19 00:55 Phenergan 25mg/Ml 1ml Vial IM 10/26/19 00:56 ONCE ONE ORDERS Category Date Time Status CT cervical spine wo con Stat Cat Scan 10/25/19 22:[address] lumbar spine wo con Stat Cat Scan 10/25/19 22:[address] thoracic spine wo con Stat Cat Scan 10/25/19 22:19 Taken XR ankle LT min 3V Stat Exams 10/26/19 00:01 Taken XR chest AP Stat Exams 10/26/19 00:01 Taken XR hip LT 2-3V w/pelvis Stat Exams 10/26/19 00:01 Taken Urine Culture Stat Micro 10/25/19 22:20 Received - Radiology Data #1 Image(s): Chest, Pelvis, Ankle Image Reviewed: Yes I reviewed the patient's radiology image Preliminary Findings: No Fracture Seen - CT Data CT Scan: C-Spine, T-Spine, L-Spine Time Received: 01:[address] Reviewed: Yes: I have viewed the radiologist's interpretation Preliminary Findings: No Fracture Seen Back Pain HPI - General Chief Complaint: Back Pain/Injury Stated Complaint: AO [id number] Left leg Time Seen by Provider: 10/25/19 22:28 Mode of Arrival: Ambulatory Source of Information: Patient Limitations: No Limitations Description of Symptoms (Recalled from ER Triage Doc. by RN): Pt states he mis-back has been hurting for days seen PCP placed on steroids and Anti-inflamitory, stopped steroids do to H/A and fell down stairs today - History of Present Illness HPI Narrative: pt with ongoing back pain and has been doing therapy - she has parasthesia on lt and fell down steps with pain in back MD Complaint: back pain Onset (ago): hour(s) Duration: constant Similar Symptoms Previously: Yes Location: lumbar spine, thoracic s
[2019-10-25 22:29] LABS: Microscopic, Urine URINE MICROSCOPIC (MICROSCOPIC)
[2019-10-25 22:52] LABS: Appearance,Urine CLOUDY (Clear); Bilirubin,Urine Negative (Negative); Blood, Urine 3+ (Negative); Color,Urine YELLOW (Yellow); Glucose,Urine (UA) Negative (Negative); Ketones,Urine Negative (Negative); Leukocyte Esterase,Urine 1+ (Negative); Nitrate,Urine Negative (Negative); Protein,Urine Negative (Negative); Specific Gravity, Urine 1.025 (1.005-1.030); Urine Pregnancy, HCG Qual. Negative (Negative)
[2019-10-25 22:56] LABS: Amorphous Sediment,Urine 4+ /lpf
--- NOTE | 2019-10-26 00:01 | XR_ITS ---
PROCEDURE: XR ANKLE LT MIN 3V CLINICAL INDICATION: fell down stairs Posttraumatic pain COMPARISON: No exams were available for comparison FINDINGS: No fracture or dislocation. No lytic or blastic change. There is normal mineralization. The joint spaces are well-preserved. No significant degenerative/arthritic changes. No erosive changes evident. Other findings:None. IMPRESSION: No acute findings. Dictated by: Enio Carson MD 10/26/2019 06:07 Electronically signed by Enio Carson MD in [place] 10/26/2019 06:07
--- NOTE | 2019-10-26 00:01 | XR_ITS ---
PROCEDURE: XR HIP LT 2-3V W/PELVIS CLINICAL INDICATION: fell down stairs Posttraumatic pain COMPARISON: No exams were available for comparison FINDINGS: No fracture or dislocation is evident. No significant degenerative change. No lytic or blastic change. Unremarkable soft tissues. IMPRESSION: No acute findings. Dictated by: Enio Carson MD 10/26/2019 06:06 Electronically signed by Enio Carson MD in [place] 10/26/2019 06:06
--- NOTE | 2019-10-26 00:01 | XR_ITS ---
PROCEDURE: XR CHEST AP CLINICAL HISTORY: fall Fall with injury and pain, trauma protocol COMPARISON: CXR CHEST(2 VIEWS-NOT PORTABLE) from 05/07/2016 FINDINGS: The cardiomediastinal silhouette and pulmonary vascularity are within normal limits. The lungs are clear without infiltrates, suspicious nodules, or pleural effusions. No acute bony abnormalities. IMPRESSION: No acute findings. Dictated by: Enio Carson MD 10/26/2019 06:07 Electronically signed by Enio Carson MD in [place] 10/26/2019 06:07
[2019-10-26 01:15] VITALS: BP 148/86; PULSE 76; RESP 16; TEMP 37.6; O2SAT 98
== END 2019-10-26 01:18 | disposition home or self-care (01) ==
PROVIDERS: Emergency Provider Emergency Medicine; PCP Emergency Medicine
DX: M54.16 Radiculopathy, lumbar region (principal); M54.6 Pain in thoracic spine; F17.210 Nicotine dependence, cigarettes, uncomplicated
CPT/HCPCS: 71045; 72125; 72128; 72131; 73502; 73610; 81001; 81025; 87086; 96372; 99282; J0595

== ENCOUNTER → 2019-11-23 08:38 | Outpatient (CLI) | payer MEDICAID, SELFPAY ==
--- NOTE | 2019-11-23 08:41 | US_ITS ---
PROCEDURE: US ABDOMEN LIMITED CLINICAL INDICATION: HEP C W/O COMA, CHRONIC COMPARISON: US ABDOMEN LIMITED from 04/30/2019 FINDINGS: PANCREAS: Unremarkable. No obvious mass or abnormal fluid collection. No ductal dilatation LIVER: No focal liver lesions demonstrated. Homogeneous echogenicity. No intrahepatic biliary ductal dilatation evident. There is appropriate direction of blood flow within a non dilated portal vein RIGHT KIDNEY: Unremarkable. Normal size and echogenicity. No hydronephrosis GALLBLADDER: There are gallstones present. No gallbladder wall thickening, pericholecystic fluid, or biliary dilatation is evident. IMPRESSION: Cholelithiasis Dictated by: Enio Carson MD 11/23/2019 18:49 Electronically signed by Enio Carson MD in [place] 11/23/2019 18:49
== END ==
PROVIDERS: PCP Emergency Medicine; Visit Provider Internal Medicine
DX: B18.2 Chronic viral hepatitis C (principal)
CPT/HCPCS: 76705

== ENCOUNTER 2019-11-26 17:46 | Emergency (ER) | payer MEDICAID, SELFPAY ==
--- NOTE | 2019-11-26 17:56 | HMH.EDGENADL ---
ED Disposition Clinical Impression: Hematoma complicating a procedure Disposition: Home, Self-Care Condition on Discharge: Good Additional Instructions: Reschedule appointment for pain management. Call Dr. Avina for further problems or for fever greater than 100 degrees. Referrals: Conrad Mishra MD [Primary Care Provider] - - Critical Care Critical Care Time: No Attestation: On 11/26/19, the high probability of a clinically significant, sudden or life threatening deterioration of the following system(s) required my full and direct attention, intervention and personal management. The time I documented below is in addition to time spent performing reported procedures but includes the following listed in this critical care notation. Medical Decision Making - Medical Records Medical records reviewed: Yes: I reviewed the patient's medical records. MR Comment: Last saw Dr. Avina 11/02/2019. Note reviewed. She was referred to pain management at that time for possible nerve block for continued pain from the hematoma. She had an appointment scheduled for 11/16/2019, but failed that appointment. - Shaheed Inquiry Pt receiving controlled substance: No Shaheed was queried for this patient: Yes Reference #:: [id number] Comment: 10 rxs. last rx 10 percocet on 11/09/19. Vital Signs: 11/26/19 17:57 Temperature 98.6 F Temperature Source Oral Pulse Rate [Radial] 93 H Respiratory Rate 14 Blood Pressure [Right Arm] 156/78 H Blood Pressure Mean [Right Arm] 104 Blood Pressure Source [Right Arm] Automatic Cuff Blood Pressure Position [Right Arm] Sitting 02 Sat by Pulse Oximetry 100 Oxygen Delivery Method Room Air - Lab Data Lab Results 11/26/19 18:48: WBC 9.1, RBC 5.47 H, Hgb 16.2, Hct 47.5 H, MCV 87.0, MCH 29.7, MCHC 34.2, RDW 14.1, Plt Count 283, MPV 7.6, Neut % (Auto) 46.3, Lymph % (Auto) 42.0, [place] % (Auto) 8.2, Eos % (Auto) 2.3, Baso % (Auto) 1.1, Neut # (Auto) 4.2, Lymph # (Auto) 3.8, [place] # (Auto) 0.8, Eos # (Auto) 0.2, Baso # (Auto) 0.1 Result diagrams: 11/26/19 18:48 - Physician Consults Physician Consulted: Fabrice Time: 19:12 Reason -: Gynocological Eval/Care Comment/Response: Discussed findings. She says findings do not sound to be changed from last examination. She says patient is to reschedule her pain management appointment. No other treatment needed at this time. She says that patient had called her this afternoon and she advised her that if she ran a fever to call her back to be seen in the office. General Adult HPI - General Stated complaint: Delivery 0331,fever, insision, red and hard Time Seen by Provider: 11/26/19 17:59 - History of Present Illness HPI narrative: The patient complains of pain at the site of a postoperative hematoma. She had a section August [address] Avina. She developed a postoperative incisional hematoma. She has had pain at the site ever since. She says for the past 2 days the area has gotten harder and more painful. She says that she had a temperature of 100 degrees last night and 99 degrees this morning. She says she took Tylenol 2 hours ago. She says she has been in contact with Dr. vAina who told her she started running a fever to come to the emergency department to get checked out. - Related Data Home Medications Medication Instructions Recorded Confirmed levonorgestrel 20 mcg/24 hours (5 INTRAUTERI 11/02/19 yrs) 52 mg intrauterine device Previous Rx's Medication Instructions Recorded oxycodone-acetaminophen 5 mg-325 1 tab PO Q6HP PRN #10 tab 11/09/19 mg tablet Allergies Allergy/AdvReac Type Severity Reaction Status Date / Time No Known Allergies Allergy Verified 11/02/19 13:33 [facility] History - Hepatitis A Screen Attestation statement:: This patient has been screened for Hepatitis A risk factors. I have reviewed the patient's past medical history: Yes Medical History: Reports:: Deep Vein Thrombosis Denies:
[2019-11-26 17:57] VITALS: BP 156/78; PULSE 93; RESP 14; TEMP 37; O2SAT 100; BMI 27.4
--- NOTE | 2019-11-26 18:46 | PC.NURSE ---
Unable to obtain IV or useful blood sample, lab at bedside attempting to obtain blood samples.
[2019-11-26 19:03] LABS: Basophils # 0.1 K/mm3 (0-0.2); Basophils % 1.1 % (0.1-2.0); Eosinophils # 0.2 K/mm3 (0.0-0.4); Eosinophils % 2.3 % (0.1-12.0); Hematocrit 47.5 % (37.0-47.0); Hemoglobin 16.2 g/dL (12.2-16.2); Lymphocytes # 3.8 K/mm3 (0.7-4.5); Mean Corpuscular HGB Conc 34.2 g/dL (31.8-35.4); Mean Corpuscular Hemoglobin 29.7 pg (27.0-31.2); Mean Platelet Volume 7.6 fl (7.4-10.4); Monocytes # 0.8 K/mm3 (0.1-1.0); Monocytes % 8.2 % (1.7-9.3); Neutrophils # 4.2 K/mm3 (1.8-7.8); Neutrophils % 46.3 % (37.0-80.0); Platelet Count 283 K/mm3 (142-424); Red Blood Count 5.47 M/mm3 (4.20-5.40); Red Cell Distribution Width 14.1 % (11.5-17.5); White Blood Count 9.1 K/mm3 (4.8-10.8)
--- NOTE | 2019-11-26 19:09 | PC.NURSE ---
received report from asad dupree; paged dr bran.
[2019-11-26 19:38] VITALS: BP 110/78; PULSE 76; RESP 18; TEMP 37.1; O2SAT 98
== END 2019-11-26 19:41 | disposition home or self-care (01) ==
PROVIDERS: Emergency Provider Emergency Medicine; PCP Emergency Medicine
DX: R50.9 Fever, unspecified (principal); M96.89 Other intraoperative and postprocedural complications and disorders of the musculoskeletal system; F17.210 Nicotine dependence, cigarettes, uncomplicated
CPT/HCPCS: 36415; 85025; 99281; 99282

== ENCOUNTER → 2019-12-04 15:03 | Outpatient (CLI) | payer MEDICAID, SELFPAY ==
[2019-12-04 16:26] LABS: Basophils # 0.1 K/mm3 (0-0.2); Basophils % 1.4 % (0.1-2.0); Eosinophils # 0.1 K/mm3 (0.0-0.4); Eosinophils % 1.9 % (0.1-12.0); Hemoglobin 15.4 g/dL (12.2-16.2); Lymphocytes # 2.5 K/mm3 (0.7-4.5); Lymphocytes % 38.1 % (10-50); Mean Corpuscular Hemoglobin 30.2 pg (27.0-31.2); Mean Corpuscular Volume 86.4 fl (81-99); Mean Platelet Volume 7.9 fl (7.4-10.4); Monocytes # 0.8 K/mm3 (0.1-1.0); Monocytes % 11.9 % (1.7-9.3); Neutrophils % 46.6 % (37.0-80.0); Platelet Count 202 K/mm3 (142-424); Red Blood Count 5.09 M/mm3 (4.20-5.40); Red Cell Distribution Width 14.2 % (11.5-17.5); White Blood Count 6.5 K/mm3 (4.8-10.8)
[2019-12-04 16:28] LABS: Urine Pregnancy, HCG Qual. Negative (Negative)
[2019-12-04 16:37] LABS: INR 0.97 (0.9-1.1)
[2019-12-04 19:56] LABS: Alanine Aminotransferase 94 U/L (12-78); Albumin Level 4.5 g/dl (3.5-5.0); Albumin/Globulin Ratio 1.6 (1.1-1.8); Alkaline Phosphatase 88 U/L (38-126); Anion Gap 16.1 mEq/L (5-15); Aspartate Amino Transferase 63 U/L (14-36); Blood Urea Nitrogen 10 mg/dl (7-17); Calcium 9.6 mg/dl (8.4-10.2); Carbon Dioxide 22 mmol/L (22.0-30.0); Chloride 104 mmol/L (98-107); Estimated Glomerular Filt Rate 99 ml/min (>60); GFR (African American) 120 ML/MIN (>60); Globulin 2.9 g/dL (1.3-3.2); Glucose 84 mg/dl (74-100); Potassium 4.1 mmoL/L (3.5-5.1); Sodium 138 mmol/L (136-145); Total Protein,Serum 7.4 g/dl (6.3-8.2)
[2019-12-06 13:16] LABS: Hep B Core Ab, Total Negative (Negative); Hepatitis B Surface Antigen Negative (Negative)
[2019-12-06 13:41] LABS: Hep A Ab, Total Positive (Negative); Hepatitis B Surf Ab Quant 114.4 mIU/mL (Immunity>9.9)
[2019-12-06 16:00] LABS: HIV Screen 4th Generation wRfx Non Reactive (Non Reactive)
[2019-12-09 02:08] LABS: ALT (SGPT) P5P 88 IU/L (0-40); Alpha 2-Macroglobulins, Qn 164 mg/dL (110-276); Apolipoprotein A-1 95 mg/dL (116-209); Bilirubin, Total 0.3 mg/dL (0.0-1.2); Fibrosis Score 0.06 (0.00-0.21); GGT 26 IU/L (0-60); Haptoglobin 236 mg/dL (33-278); Necroinflammat Activity Grade A1-A2 (.); Necroinflammat Activity Score 0.42 (0.00-0.17)
[2019-12-16 15:27] LABS: Hepatitis C Genotype 1a (.)
== END ==
PROVIDERS: Visit Provider Internal Medicine
DX: B18.2 Chronic viral hepatitis C (principal)
CPT/HCPCS: 36415; 80053; 81025; 81596; 85025; 85610; 86703; 86704; 86706; 86708; 87340; 87522; G0432

== ENCOUNTER 2020-01-17 09:53 | Emergency (ER) | payer MEDICAID, SELFPAY ==
[2020-01-17 09:55] VITALS: BP 120/73; PULSE 78; RESP 13; TEMP 36.7; O2SAT 99; BMI 23.0
--- NOTE | 2020-01-17 10:05 | XR_ITS ---
PROCEDURE: XR FOOT RT MIN 3V CLINICAL INDICATION: injury COMPARISON: No exams were available for comparison FINDINGS: No fracture or dislocation. No lytic or blastic change. There is normal mineralization. The joint spaces are well-preserved. No significant degenerative/arthritic changes. No erosive changes evident. Other findings:There is mild soft tissue swelling about the great toe. IMPRESSION: No acute fracture seen. Dictated by: Dr. Hammad Banegas MD 01/17/2020 13:48 Dr. Hammad Banegas MD in [place] 01/17/2020 13:48
--- NOTE | 2020-01-17 10:05 | XR_ITS ---
PROCEDURE: XR ANKLE RT MIN 3V CLINICAL INDICATION: injury COMPARISON: No exams were available for comparison FINDINGS: The medial and lateral malleolus appear intact. The ankle mortise is normal. There is no significant soft tissue swelling. IMPRESSION: No acute findings. Dictated by: Dr. Hammad Banegas MD 01/17/2020 13:49 Dr. Hammad Banegas MD in [place] 01/17/2020 13:49
--- NOTE | 2020-01-17 10:12 | HMH.EDEXTP ---
ED Disposition Clinical Impression: Sprain and strain of ankle Disposition: Home, Self-Care Condition on Discharge: Good Instructions: Ankle Fracture Additional Instructions: You were seen on an emergency basis. It is very important that you follow up with your primary care provider and/or specialist as we discussed within 2 days. All labs and imaging were obtained and interpreted here to rule out life threatening emergencies, but your final results should be reviewed by your primary doctor at your follow up appointment. Please return to the emergency department if any of your symptoms worsen, or if they do not improve as we discussed. Referrals: Conrad Mishra MD [Primary Care Provider] - - Critical Care Critical Care Time: No Attestation: On 01/17/20, the high probability of a clinically significant, sudden or life threatening deterioration of the following system(s) required my full and direct attention, intervention and personal management. The time I documented below is in addition to time spent performing reported procedures but includes the following listed in this critical care notation. Medical Decision Making - Medical Records Medical records reviewed: Yes: I reviewed the patient's medical records. - Shaheed Inquiry Pt receiving controlled substance: No Vital Signs: 01/17/20 09:55 01/17/20 10:25 01/17/20 11:00 Temperature 98.1 F Temperature Source Oral Pulse Rate [Left Radial] 78 71 55 L Respiratory Rate 13 Blood Pressure [Right Arm] 120/73 127/70 111/63 Blood Pressure Mean [Right Arm] 88 89 79 Blood Pressure Source [Right Arm] Automatic Cuff Automatic Cuff Blood Pressure Position [Right Arm] Sitting Supine 02 Sat by Pulse Oximetry 99 99 98 Oxygen Delivery Method Room Air Room Air Room Air Orders (Tests/Meds): ED MEDICATIONS Discontinued Medications Generic Name Dose Route Start Last Admin Trade Name Freq PRN Reason Stop Dose Admin Acetaminophen 1,000 mg 01/17/20 10:13 01/17/20 10:14 Tylenol 500mg Tablet PO 01/17/20 10:14 1,000 mg ONCE ONE Administration ORDERS Category Date Time Status XR ankle RT min 3V Stat Exams 01/17/20 10:05 Taken XR foot RT min 3V Stat Exams 01/17/20 10:05 Taken Medical Decision Narrative: 29-year-old female presenting with ankle pain. X-rays of the right ankle and foot are negative for fracture. She was placed in an Rigo wrap and will remain nonweightbearing on crutches until follow-up with PCP. Extremity Problem HPI - General Chief complaint: Extremity Injury, Lower Stated complaint: fell ao 01/15 right foot Time Seen by Provider: 01/17/20 10:12 Mode of Arrival: Ambulatory Limitations: No Limitations Description of Symptoms (Recalled from ER Triage Doc. by RN): c/o right toe/foot pain after falling up her steps yesterday. - History of Present Illness HPI Narrative: This is a 29-year-old female who presents with a right ankle injury that she sustained yesterday when she slipped while going up the stairs. She did not fall down the stairs. No head strike or loss of consciousness. She has pain localized to the medial aspect of her right ankle. Has been taking ibuprofen without relief. pain is provoked by weightbearing to the affected extremity. - Related Data Home Medications Medication Instructions Recorded Confirmed levonorgestrel 20 mcg/24 hours (5 INTRAUTERI 11/02/19 yrs) 52 mg intrauterine device Previous Rx's Medication Instructions Recorded oxycodone-acetaminophen 5 mg-325 1 tab PO Q6HP PRN #10 tab 11/09/19 mg tablet Allergies Allergy/AdvReac Type Severity Reaction Status Date / Time No Known Allergies Allergy Verified 11/02/19 13:33 [facility] History - Hepatitis A Screen Drug use history?: No High risk sexual behaviors?: No History of sexually transmitted infection?: No Currently employed?: No Childcare worker?: No Do you have indoor plumbing?: Yes Do you murdock
--- NOTE | 2020-01-17 10:19 | PC.NURSE ---
back from xray
[2020-01-17 10:25] VITALS: BP 127/70; PULSE 71; O2SAT 99
[2020-01-17 11:00] VITALS: BP 111/63; PULSE 55; O2SAT 98
[2020-01-17 11:57] VITALS: BP 94/70; PULSE 59; RESP 18; TEMP 36.6; O2SAT 99
== END 2020-01-17 11:58 | disposition home or self-care (01) ==
PROVIDERS: Emergency Provider Physician Assistant; PCP Emergency Medicine
DX: S93.401A Sprain of unspecified ligament of right ankle, initial encounter (principal); W10.9XXA Fall (on) (from) unspecified stairs and steps, initial encounter; Y92.019 Unspecified place in single-family (private) house as the place of occurrence of the external cause; F17.210 Nicotine dependence, cigarettes, uncomplicated
CPT/HCPCS: 73610; 73630; 99282

== ENCOUNTER 2020-01-29 15:20 | Emergency (ER) | payer MEDICAID, SELFPAY ==
[2020-01-29 15:31] VITALS: BP 124/78; PULSE 83; RESP 16; TEMP 37.1; O2SAT 98; BMI 24.7
--- NOTE | 2020-01-29 15:40 | CT_ITS ---
PROCEDURE: CT ABDOMEN PELVIS W CON CLINICAL INDICATION: pain, swelling in LLQ COMPARISON: CT CT ABDOMEN PELVIS W CON from 10/16/2019 TECHNIQUE: IV Contrast: 75ML OPTIRAY 350 Oral Contrast None Axial images obtained with sagittal and coronal reformats. All CT scans at the facility use one or more dose reduction, viz: automated exposure control, ma/kV adjustment per patient size (including targeted exams where dose is matched to indication, i.e. head), or iterative reconstruction technique. FINDINGS: LOWER THORAX: No acute finding ABDOMEN & PELVIS: The liver, spleen, adrenal glands, pancreas, kidneys, gallbladder, have an unremarkable appearance. No intestinal obstruction or free air. No pelvic mass or abnormal fluid collection. There is a mild amount of retained colonic feces. No evidence of appendicitis. Subcutaneous soft tissue thickening is present in the left lower quadrant similar to the previous exam. This may be related to postsurgical scarring having a somewhat similar appearance on 10/16/2019. There is an IUD in place. No acute bony findings. There is some degenerative change in the lower thoracic spine IMPRESSION: No acute abdominal or pelvic findings. Persistent increased soft tissue density in the left lower quadrant subcutaneous fat extending to the abdominal wall which may be related to postsurgical scarring There is a mild amount of retained colonic feces. Dictated by: Enio Carson MD 01/29/2020 17:15 Enio Carson MD in [place] 01/29/2020 17:15
[2020-01-29 15:46] LABS: Microscopic, Urine URINE MICROSCOPIC (MICROSCOPIC)
[2020-01-29 15:53] LABS: Appearance,Urine CLEAR (Clear); Bilirubin,Urine Negative (Negative); Blood, Urine Negative (Negative); Color,Urine YELLOW (Yellow); Glucose,Urine (UA) Negative (Negative); Ketones,Urine Negative (Negative); Leukocyte Esterase,Urine Negative (Negative); Nitrate,Urine Negative (Negative); Protein,Urine Negative (Negative); Specific Gravity, Urine 1.015 (1.005-1.030)
[2020-01-29 15:56] LABS: Urine Pregnancy, HCG Qual. Negative (Negative)
[2020-01-29 16:04] LABS: Basophils # 0.1 K/mm3 (0-0.2); Basophils % 0.8 % (0.1-2.0); Eosinophils # 0.1 K/mm3 (0.0-0.4); Eosinophils % 1.5 % (0.1-12.0); Hemoglobin 15.8 g/dL (12.2-16.2); Lymphocytes # 3.2 K/mm3 (0.7-4.5); Lymphocytes % 38.9 % (10-50); Mean Corpuscular HGB Conc 35.8 g/dL (31.8-35.4); Mean Corpuscular Hemoglobin 31.8 pg (27.0-31.2); Mean Corpuscular Volume 88.8 fl (81-99); Monocytes # 0.7 K/mm3 (0.1-1.0); Monocytes % 8.9 % (1.7-9.3); Neutrophils # 4.1 K/mm3 (1.8-7.8); Neutrophils % 49.9 % (37.0-80.0); Platelet Count 249 K/mm3 (142-424); Red Blood Count 4.96 M/mm3 (4.20-5.40); White Blood Count 8.3 K/mm3 (4.8-10.8)
[2020-01-29 16:10] LABS: Alanine Aminotransferase 59 U/L (12-78); Albumin Level 4.6 g/dl (3.5-5.0); Albumin/Globulin Ratio 1.4 (1.1-1.8); Alkaline Phosphatase 81 U/L (38-126); Anion Gap 10.1 mEq/L (5-15); Aspartate Amino Transferase 40 U/L (14-36); Bilirubin,Total 0.7 mg/dl (0.2-1.3); Blood Urea Nitrogen 13 mg/dl (7-17); Calcium 9.8 mg/dl (8.4-10.2); Carbon Dioxide 26 mmol/L (22.0-30.0); Chloride 106 mmol/L (98-107); Creatinine Clearance Estimated 119 mL/min (50-200); Estimated Glomerular Filt Rate 99 ml/min (>60); GFR (African American) 120 ML/MIN (>60); Globulin 3.2 g/dL (1.3-3.2); Glucose 98 mg/dl (74-100); Potassium 4.1 mmoL/L (3.5-5.1); Sodium 138 mmol/L (136-145); Total Protein,Serum 7.8 g/dl (6.3-8.2)
--- NOTE | 2020-01-29 16:10 | HMH.EDABDPAI ---
ED Disposition Clinical Impression: Scar tissue, Abdominal wall pain in left lower quadrant Disposition: Home, Self-Care Condition on Discharge: Good Instructions: DI for Abdominal Pain-Adult Prescriptions: Ibuprofen [Ibuprofen 800mg Tablet] 800 mg PO TIDP PRN #20 tab PRN Reason: Moderate Pain Transmission Status: Pending to [id number] Referrals: Conrad Mishra MD [Primary Care Provider] - - Critical Care Critical Care Time: No Attestation: On 01/29/20, the high probability of a clinically significant, sudden or life threatening deterioration of the following system(s) required my full and direct attention, intervention and personal management. The time I documented below is in addition to time spent performing reported procedures but includes the following listed in this critical care notation. Medical Decision Making - Medical Records Medical records reviewed: Yes: I reviewed the patient's medical records. - Shaheed Inquiry Pt receiving controlled substance: No Vital Signs: 01/29/20 15:31 Temperature 98.7 F Temperature Source Oral Pulse Rate [Radial] 83 Respiratory Rate 16 Blood Pressure [Right Arm] 124/78 Blood Pressure Mean [Right Arm] 93 Blood Pressure Position [Right Arm] Sitting 02 Sat by Pulse Oximetry 98 Oxygen Delivery Method Room Air - Lab Data Lab Results 01/29/20 15:44: Urine Color Yellow, Urine Appearance Clear, Urine pH 7.0, Ur Specific [place] 1.015, Urine Protein Negative, Urine Glucose (UA) Negative, Urine Ketones Negative, Urine Blood Negative, Urine Nitrate Negative, Urine Bilirubin Negative, Urine Urobilinogen 1.0, Ur Leukocyte Esterase Negative, Urine RBC None, Urine WBC 3-5, Ur Squamous Epith Cells 5-10, Urine Bacteria 3+ 01/29/20 15:44: Urine HCG, Qual Negative 01/29/20 15:50: WBC 8.3, RBC 4.96, Hgb 15.8, Hct 44.0, MCV 88.8, MCH 31.8 H, MCHC 35.8 H, RDW 13.0, Plt Count 249, MPV 8.0, Neut % (Auto) 49.9, Lymph % (Auto) 38.9, [place] % (Auto) 8.9, Eos % (Auto) 1.5, Baso % (Auto) 0.8, Neut # (Auto) 4.1, Lymph # (Auto) 3.2, [place] # (Auto) 0.7, Eos # (Auto) 0.1, Baso # (Auto) 0.1 01/29/20 15:50: Sodium 138, Potassium 4.1, Chloride 106, Carbon Dioxide 26, Anion Gap 10.1, BUN 13, Creatinine 0.70, Estimated Creat Clear 119, Estimated GFR 99, Est GFR ( Amer) 120, Glucose 98, Calcium 9.8, Total Bilirubin 0.7, AST 40 H, ALT 59, Alkaline Phosphatase 81, Total Protein 7.8, Albumin 4.6, Globulin 3.2, Albumin/Globulin Ratio 1.4 Result diagrams: 01/29/20 15:50 01/29/20 15:50 Orders (Tests/Meds): ED MEDICATIONS Discontinued Medications Generic Name Dose Route Start Last Admin Trade Name Freq PRN Reason Stop Dose Admin Ketorolac Tromethamine 30 mg 01/29/20 15:40 01/29/20 16:35 Toradol 30mg/Ml Vial IV 01/29/20 15:41 30 mg ONCE ONE Administration ORDERS Category Date Time Status Urine Culture Stat Micro 01/29/20 15:44 Received - CT Data CT Scan: Abdomen, Pelvis Time Received: 17:49 Findings Narrative: IMPRESSION: No acute abdominal or pelvic findings. Persistent increased soft tissue density in the left lower quadrant subcutaneous fat extending to the abdominal wall which may be related to postsurgical scarring There is a mild amount of retained colonic feces. - Reevaluation(s) Time: 17:50 Reevaluation #1: On reevaluation, patient is feeling better. Tolerating oral intake. Repeat abdominal exam is improved. Patient has some redemonstrated soft tissue subcutaneous swelling. Consistent with scar tissue from ulcer surgical changes. There is no obvious hernia. There is no evidence of abscess, fluid collection or cellulitis. Patient has no leukocytosis or fever. I do believe the patient likely just has irritation of her scar tissue from her postsurgical hematoma. Patient need to follow-up with her [employer]ERK and primary physician. Given strict return precautions. Verbalized understanding. Medical Decision Narrative: T
[2020-01-29 16:34] LABS: Bacteria,Urine 3+ /lpf
--- NOTE | 2020-01-29 16:38 | PC.NURSE ---
Pt to rad.
[2020-01-29 17:59] VITALS: BP 122/74; PULSE 78; RESP 16; TEMP 36.6; O2SAT 98
== END 2020-01-29 18:00 | disposition home or self-care (01) ==
PROVIDERS: Emergency Provider Emergency Medicine; PCP Emergency Medicine
DX: R10.32 Left lower quadrant pain (principal); L90.5 Scar conditions and fibrosis of skin; Z86.718 Personal history of other venous thrombosis and embolism; F17.210 Nicotine dependence, cigarettes, uncomplicated
CPT/HCPCS: 74177; 80053; 81001; 81025; 85025; 87086; 96374; 99283

== ENCOUNTER 2020-02-01 11:08 | Emergency (ER) | payer MEDICAID, SELFPAY ==
[2020-02-01 11:27] VITALS: BP 117/82; PULSE 76; RESP 19; TEMP 36.8; O2SAT 97; BMI 24.7
[2020-02-01 11:30] LABS: UTC Strep Screen (Rapid) Negative (Negative)
--- NOTE | 2020-02-01 11:59 | HMH.EDUTC ---
[facility] [place] Clinical Impression: Laryngitis Pharyngitis Qualifiers: Pharyngitis/tonsillitis etiology: unspecified etiology Qualified Code(s): J02.9 - Acute pharyngitis, unspecified Disposition: Home, Self-Care Condition on Discharge: Good Instructions: DI for Pharyngitis/Tonsillopharyngitis -- Adult, Preventing the Spread of Coronavirus Discharge Instructions Additional Instructions: Drink plenty of fluids. Take tylenol or ibuprofen for pain or fever. Take the medications as directed. Follow up with your regular doctor. GO TO THE ER FOR ANY WORSENING SYMPTOMS FOLLOW THE DIRECTIONS ON THE COVID-19 HAND OUT THAT WE GAVE YOU REGARDING SELF-ISOLATION UNTIL YOU KNOW YOUR COVID-19 RESULTS Prescriptions: Brompheniramine/Pseudoephed/Dm [Bromfed Dm Cough Syrup] 5 ml PO Q6HP PRN #240 syrup PRN Reason: Cough Transmission Status: Received by [id number] predniSONE [Deltasone 10mg tablet] 10 mg PO BID 3 Days #6 tab Transmission Status: Received by [id number] Azithromycin [Z-Dixon 250mg Tab*] 250 mg PO UD DOSE PK #6 tab Transmission Status: Received by [id number] Referrals: Conrad Mishra MD [Primary Care Provider] - Forms: Work/School Release Time of Disposition: 12:04 Medical Decision Making - Medical Records Medical records reviewed: No: I reviewed the patient's medical records. - Shaheed Inquiry Pt receiving controlled substance: No Vital Signs: 02/01/20 11:27 02/01/20 12:09 Temperature 98.3 F 98.3 F Temperature Source Oral Oral Pulse Rate 76 Pulse Rate [Radial] 76 Respiratory Rate 19 19 Blood Pressure 117/82 Blood Pressure [Right Arm] 117/82 Blood Pressure Mean [Right Arm] 93 Blood Pressure Source Automatic Cuff Blood Pressure Source [Right Arm] Automatic Cuff Blood Pressure Position Sitting Blood Pressure Position [Right Arm] Sitting 02 Sat by Pulse Oximetry 97 Oxygen Delivery Method Room Air Room Air - Lab Data Lab results reviewed: Yes: I reviewed the patient's lab results. Lab Results 02/01/20 11:30: Strep Scn Rapid Clinic Negative Orders (Tests/Meds): ORDERS Category Date Time Status Covid-19 Nasal PCR Sendout Mario Stat Lab 02/01/20 11:45 Received Strep Screen Confirmation Stat Micro 02/01/20 11:30 Received [facility] HPI - General Stated complaint: loss of voice, sore throat Time Seen by Provider: 02/01/20 11:30 Mode of Arrival: Ambulatory Source of Information: Patient Limitations: No Limitations Description of Symptoms (Recalled from Triage Doc. by RN): sore throat, loss of voice HEENT Symptoms (Recalled from RN notes): Yes Resp Symptoms (Recalled from RN notes): No Skin Symptoms (Recalled from RN notes): No MS Symptoms (Recalled from RN notes): No Functional Status (Recalled from RN notes): wnl - History of Present Illness Provider Complaint: She c/o having head ache, cough and decreased voice for the past 2 days. She denies any exposure to COVID-19. - Related Data Home Medications Medication Instructions Recorded Confirmed levonorgestrel 20 mcg/24 hours (5 INTRAUTERI 11/02/19 yrs) 52 mg intrauterine device Previous Rx's Medication Instructions Recorded Ibuprofen [Ibuprofen 800mg 800 mg PO TIDP PRN #20 tab 01/29/20 Tablet] Azithromycin [Z-Dixon 250mg Tab*] 250 mg PO UD DOSE PK #6 tab 02/01/20 Brompheniramine/Pseudoephed/Dm 5 ml PO Q6HP PRN #240 syrup 02/01/20 [Bromfed Dm Cough Syrup] predniSONE [Deltasone 10mg tablet] 10 mg PO BID 3 Days #6 tab 02/01/20 Allergies Allergy/AdvReac Type Severity Reaction Status Date / Time No Known Allergies Allergy Verified 01/29/20 13:40 - Worker's Comp Is this a Worker's Comp case?: No [facility] History - Hepatitis A Screen Drug use history?: No High risk sexual behaviors?: No History of sexually transmitted infection?: No Currently employed?: No Childcare worker?: No Do you have indoor plumbing?: Yes Do you have electricity?: Yes
[2020-02-01 12:09] VITALS: BP 117/82; PULSE 76; RESP 19; TEMP 36.8; O2SAT 97
[2020-02-02 16:48] LABS: Covid-19 Nasal PCR Sendout Lex Not Detected
== END 2020-02-01 12:10 | disposition home or self-care (01) ==
PROVIDERS: Emergency Provider Nurse Practitioner Family; PCP Emergency Medicine
DX: J04.0 Acute laryngitis (principal); J02.9 Acute pharyngitis, unspecified; Z20.828 Contact with and (suspected) exposure to other viral communicable diseases
CPT/HCPCS: 87880; 99202; U0004

== ENCOUNTER 2020-04-13 14:21 | Emergency (ER) | payer MEDICAID, SELFPAY ==
[2020-04-13 14:33] VITALS: BP 141/87; PULSE 70; RESP 18; TEMP 36.9; O2SAT 99; BMI 25.7
[2020-04-13 14:42] LABS: UTC Strep Screen (Rapid) Negative (Negative)
[2020-04-13 14:51] VITALS: BP 141/87; PULSE 70; RESP 18; TEMP 36.9; O2SAT 99
--- NOTE | 2020-04-13 15:06 | HMH.EDUTC ---
[facility] Disposition Clinical Impression: URI (upper respiratory infection) Qualifiers: URI type: unspecified URI Qualified Code(s): J06.9 - Acute upper respiratory infection, unspecified Disposition: Home, Self-Care Condition on Discharge: Good Instructions: Sore Throat, DI for Sinusitis Additional Instructions: *Monitor Temp, Over the counter Motrin or Tylenol as directed/as needed Tylenol every 4 hours and Motrin every 6 hours (as long as your family doctor has told you that you can take it) for fever or pain. and straight to ER if unable to lower temp less than 101.0 after medication given *Warm salt water gargles may help to soothe the throat *Throat Lozenges *Warm fluids like tea with honey may help to soothe the throat *Sleep elevated *Humidifier/Vaporizer Your throat swab was sent for culture. Those results are typically sent to your primary care. Be sure to follow up in 2-3 days with your family doctor/primary care physician if no improvement so they can review those result and treat if necessary. If you don?t have a primary care doctor, I recommend you get one but in the mean time, you will have to return to a walk in clinic Follow up IMMEDIATELY for new or worsening symptoms or no Noticeable improvement over the next 48-72 hours. 911 for difficulty breathing or swallowing Prescriptions: Azithromycin [Z-Dixon 250mg Tab] 250 mg PO DIRECTED #6 tab Transmission Status: Pending to [facility] Referrals: Conrad Mishra MD [Primary Care Provider] - As needed Forms: Work/School Release Time of Disposition: 15:20 Medical Decision Making - Shaheed Inquiry Pt receiving controlled substance: No Shaheed was queried for this patient: No Vital Signs: 04/13/20 14:33 04/13/20 14:51 Temperature 98.5 F 98.5 F Temperature Source Oral Pulse Rate 70 Pulse Rate [Left] 70 Respiratory Rate 18 18 Blood Pressure 141/87 H Blood Pressure [Right Arm] 141/87 H Blood Pressure Mean [Right Arm] 105 Blood Pressure Source [Right Arm] Automatic Cuff Blood Pressure Position [Right Arm] Sitting 02 Sat by Pulse Oximetry 99 Oxygen Delivery Method Room Air - Lab Data Lab results reviewed: Yes: I reviewed the patient's lab results. Lab Results 04/13/20 14:34: Strep Scn Rapid Clinic Negative Orders (Tests/Meds): ORDERS Category Date Time Status Strep Screen Confirmation Stat Micro 04/13/20 14:34 Received [facility] [place] HPI - General Stated complaint: Sore throat, fever Time Seen by Provider: 04/13/20 15:06 Mode of Arrival: Ambulatory Source of Information: Patient Limitations: No Limitations Description of Symptoms (Recalled from Triage Doc. by RN): Sore throat, runny nose, low grade fever, cough HEENT Symptoms (Recalled from RN notes): No Resp Symptoms (Recalled from RN notes): Yes Skin Symptoms (Recalled from RN notes): No MS Symptoms (Recalled from RN notes): No Functional Status (Recalled from RN notes): WNL - History of Present Illness Provider Complaint: Patient state that she has been having sinus pain and pressure and sore throat States that she feels like she may have strep throat or sinus infection States that she feels like she is having drainage in the back of her throat that is making her throat sore and hurt State that she was tested for COVID on Saturday and it was negative - Related Data Home Medications Medication Instructions Recorded Confirmed levonorgestrel 20 mcg/24 hours (6 INTRAUTERI 11/02/19 yrs) 52 mg intrauterine device Previous Rx's Medication Instructions Recorded Ibuprofen [Ibuprofen 800mg 800 mg PO TIDP PRN #20 tab 01/29/20 Tablet] Azithromycin [Z-Dixon 250mg Tab*] 250 mg PO UD DOSE PK #6 tab 02/01/20 Brompheniramine/Pseudoephed/Dm 5 ml PO Q6HP PRN #240 syrup 02/01/20 [Bromfed Dm Cough Syrup] predniSONE [Deltasone 10mg tablet] 10 mg PO BID 3 Days #6 tab 02/01/20 Azithromycin [Z-Dixon 250mg Tab] 250 mg PO DIRECTED #6 tab 04/13/20 [facility]
== END 2020-04-13 15:26 | disposition home or self-care (01) ==
PROVIDERS: Emergency Provider Nurse Practitioner; PCP Emergency Medicine
DX: J06.9 Acute upper respiratory infection, unspecified (principal); F17.210 Nicotine dependence, cigarettes, uncomplicated
CPT/HCPCS: 87880; 99201

== ENCOUNTER 2020-06-01 10:15 | Emergency (ER) | payer MEDICAID, SELFPAY ==
[2020-06-01 10:16] VITALS: BP 127/70; PULSE 78; RESP 16; TEMP 36.4; O2SAT 99; BMI 27.4
--- NOTE | 2020-06-01 10:40 | HMH.EDUTC ---
[facility] [place] Disposition Clinical Impression: Viral syndrome, Exposure to COVID-19 virus Disposition: Home, Self-Care Condition on Discharge: Good Instructions: DI for COVID-19 (Suspected or Confirmed ), Preventing the Spread of Coronavirus Discharge Instructions Additional Instructions: Drink plenty of fluids. Take tylenol for pain or fever. Return if you begin to have difficulty breathing. Follow up with your regular doctor. GO TO THE ER FOR ANY WORSENING SYMPTOMS Prescriptions: Ondansetron [Zofran 4mg ODT] 4 mg PO Q8HP PRN #12 tab.rapdis PRN Reason: Nausea Transmission Status: Received by [facility] Benzonatate [Tessalon Perle 100mg Cap] 100 mg PO TIDP PRN #30 cap PRN Reason: Cough Transmission Status: Received by [facility] Azithromycin [Z-Dixon 250mg Tab*] 250 mg PO UD DOSE PK #6 tab Transmission Status: Received by [facility] Referrals: Conrad Mishra MD [Primary Care Provider] - Forms: Work/School Release Time of Disposition: 10:47 Medical Decision Making - Medical Records Medical records reviewed: No: I reviewed the patient's medical records. - Shaheed Inquiry Pt receiving controlled substance: No Vital Signs: 06/01/20 10:16 06/01/20 11:10 Temperature 97.5 F L 97.5 F L Temperature Source Oral Oral Pulse Rate 78 Pulse Rate [Right] 78 Respiratory Rate 16 16 Blood Pressure 127/70 Blood Pressure [Right Arm] 127/70 Blood Pressure Mean [Right Arm] 89 02 Sat by Pulse Oximetry 99 Orders (Tests/Meds): ORDERS Category Date Time Status Covid-19 Nasal PCR Sendout P&C Stat Lab 06/01/20 10:25 Received [facility] [place] HPI - General Stated complaint: cough, nausea, weakness Time Seen by Provider: 06/01/20 10:45 Description of Symptoms (Recalled from Triage Doc. by RN): pt request covid test pt c/o cough,fever,N/V HEENT Symptoms (Recalled from RN notes): Yes Resp Symptoms (Recalled from RN notes): Yes Skin Symptoms (Recalled from RN notes): No MS Symptoms (Recalled from RN notes): No Functional Status (Recalled from RN notes): wnl - History of Present Illness Provider Complaint: She states that for the past 1 day she has had sinus congestion, chest congestion, sore throat, head ache, body aches, and gi upset. She denies documented fever. - Related Data Home Medications Medication Instructions Recorded Confirmed levonorgestrel 20 mcg/24 hours (6 INTRAUTERI 11/02/19 yrs) 52 mg intrauterine device Previous Rx's Medication Instructions Recorded Ibuprofen [Ibuprofen 800mg 800 mg PO TIDP PRN #20 tab 01/29/20 Tablet] Azithromycin [Z-Dixon 250mg Tab*] 250 mg PO UD DOSE PK #6 tab 02/01/20 Brompheniramine/Pseudoephed/Dm 5 ml PO Q6HP PRN #240 syrup 02/01/20 [Bromfed Dm Cough Syrup] predniSONE [Deltasone 10mg tablet] 10 mg PO BID 3 Days #6 tab 02/01/20 Azithromycin [Z-Dixon 250mg Tab] 250 mg PO DIRECTED #6 tab 04/13/20 Azithromycin [Z-Dixon 250mg Tab*] 250 mg PO UD DOSE PK #6 tab 06/01/20 Benzonatate [Tessalon Perle 100mg 100 mg PO TIDP PRN #30 cap 06/01/20 Cap] Ondansetron [Zofran 4mg ODT] 4 mg PO Q8HP PRN #12 tab.rapdis 06/01/20 Allergies Allergy/AdvReac Type Severity Reaction Status Date / Time No Known Allergies Allergy Verified 04/13/20 14:44 - Worker's Comp Is this a Worker's Comp case?: No Is this an [facility] Worker's Comp?: No Is this a [place] Worker's Comp?: No [facility] History - Hepatitis A Screen Drug use history?: No High risk sexual behaviors?: No History of sexually transmitted infection?: No Currently employed?: No Childcare worker?: No Do you have indoor plumbing?: Yes Do you have electricity?: Yes Attestation statement:: This patient has been screened for Hepatitis A risk factors. I have reviewed the patient's past medical history: Yes Medical History: Reports:: Deep Vein Thrombosis Denies:: Cancer, Diabetes Mellitus Type 1, Diabetes Mellitus Type 2, Internal Pacemaker, MRSA, Seizures Other
[2020-06-01 11:10] VITALS: BP 127/70; PULSE 78; RESP 16; TEMP 36.4; O2SAT 99
[2020-06-02 10:13] LABS: Covid-19 Nasal PCR Sendout P&C Negative
== END 2020-06-01 11:11 | disposition home or self-care (01) ==
PROVIDERS: Emergency Provider Nurse Practitioner Family; PCP Emergency Medicine
DX: Z20.822 Contact with and (suspected) exposure to COVID-19 (principal); B34.9 Viral infection, unspecified; F17.210 Nicotine dependence, cigarettes, uncomplicated
CPT/HCPCS: 99202; G0463; U0004

== ENCOUNTER → 2020-06-29 16:20 | Outpatient (CLI) | payer MEDICAID, SELFPAY | PROVIDERS: PCP Emergency Medicine; Visit Provider Nurse Practitioner Family | DX: Z20.822 Contact with and (suspected) exposure to COVID-19 (principal); U07.1 COVID-19 | CPT/HCPCS: U0003 ==

== ENCOUNTER 2020-10-03 13:45 | Emergency (ER) | payer MEDICAID, SELFPAY ==
[2020-10-03 14:00] VITALS: BP 116/76; PULSE 93; RESP 21; TEMP 36.8; O2SAT 99; BMI 26.9
[2020-10-03 14:13] LABS: UTC Strep Screen (Rapid) Negative (Negative)
--- NOTE | 2020-10-03 14:34 | HMH.EDUTC ---
[facility] – [place] Disposition Clinical Impression: Sinusitis Qualifiers: Sinusitis location: unspecified location Chronicity: unspecified Qualified Code(s): J32.9 - Chronic sinusitis, unspecified Disposition: Home, Self-Care Condition on Discharge: Good Instructions: Sinusitis, DI for Sinusitis, Amoxicillin and Clavulanic Acid, Methylprednisolone, Benzonatate Additional Instructions: *Monitor Temp, Over the counter Motrin or Tylenol as directed/as needed Tylenol every 4 hours and Motrin every 6 hours (as long as your family doctor has told you that you can take it) for fever or pain. and straight to ER if unable to lower temp less than 101.0 after medication given *Warm salt water gargles may help to soothe the throat *Throat Lozenges *Warm fluids like tea with honey may help to soothe the throat *Sleep elevated *Humidifier/Vaporizer *Flonase 2 sprays in each nostril daily but be aware that it may take 2-3 days before you notice improvement Your throat swab was sent for culture. Those results are typically sent to your primary care. Be sure to follow up in 2-3 days with your family doctor/primary care physician if no improvement so they can review those result and treat if necessary. If you don?t have a primary care doctor, I recommend you get one but in the mean time, you will have to return to a walk in clinic Follow up IMMEDIATELY for new or worsening symptoms or no Noticeable improvement over the next 48-72 hours. 911 for difficulty breathing or swallowing Prescriptions: Amoxicillin/Potassium Clav [Augmentin 875-125 Tablet] 1 tab PO Q12H 7 Days #14 tab Transmission Status: Pending to [facility] methylPREDNISolone [Medrol 4mg tab] 4 mg PO DIRECTED #21 tab Transmission Status: Pending to [facility] Benzonatate [Tessalon Perle 100mg Cap*] 100 mg PO TID PRN #15 cap PRN Reason: Cough Transmission Status: Pending to [facility] Referrals: Conrad Mishra MD [Primary Care Provider] - As needed Time of Disposition: 14:39 Medical Decision Making - Shaheed Inquiry Pt receiving controlled substance: No Shaheed was queried for this patient: No Vital Signs: 10/03/20 14:00 Temperature 98.2 F Temperature Source Oral Pulse Rate [Right Brachial] 93 H Respiratory Rate 21 Blood Pressure [Right Arm] 116/76 Blood Pressure Mean [Right Arm] 89 Blood Pressure Source [Right Arm] Automatic Cuff Blood Pressure Position [Right Arm] Sitting 02 Sat by Pulse Oximetry 99 Oxygen Delivery Method Room Air - Lab Data Lab results reviewed: Yes: I reviewed the patient's lab results. Lab Results 10/03/20 14:12: Strep Scn Rapid Clinic Negative Orders (Tests/Meds): ORDERS Category Date Time Status Strep Screen Confirmation Stat Micro 10/03/20 14:12 Received [facility] [place] HPI - General Stated complaint: sore throat, SOA Time Seen by Provider: 10/03/20 14:34 Mode of Arrival: Ambulatory Source of Information: Patient Limitations: No Limitations Description of Symptoms (Recalled from Triage Doc. by RN): PATIENT C/O FEVERS, CONGESTION, HEADACHE, SORE THROAT, AND TIGHTNESS IN CHEST X 3 DAYS HEENT Symptoms (Recalled from RN notes): Yes Resp Symptoms (Recalled from RN notes): No Skin Symptoms (Recalled from RN notes): No MS Symptoms (Recalled from RN notes): No Functional Status (Recalled from RN notes): WNL - History of Present Illness Provider Complaint: Patient states that she hasnt felt well in several days States that she has been having sinus pressure, cough, and feeling like it is trying to move into her chest area States that she also she has been having headache and chills State that she is not allowed to take over the counter cough medication due to drug court and wants to get something for cough - Related Data Home Medications Medication Instructions Recorded Confirmed Vilazodone HCl [Viibryd 20mg 20 mg PO DAILY 10/03/20 10/03/20 Tablet] Previous Rx's Medication Instructi
[2020-10-03 14:41] VITALS: BP 116/76; PULSE 93; RESP 21; TEMP 36.8; O2SAT 99
== END 2020-10-03 14:44 | disposition home or self-care (01) ==
PROVIDERS: Emergency Provider Nurse Practitioner; PCP Emergency Medicine
DX: J32.9 Chronic sinusitis, unspecified (principal); Z86.718 Personal history of other venous thrombosis and embolism; F17.290 Nicotine dependence, other tobacco product, uncomplicated; F19.11 Other psychoactive substance abuse, in remission
CPT/HCPCS: 87880; 99202; G0463

== ENCOUNTER 2020-12-01 13:32 | Emergency (ER) | payer MEDICAID, SELFPAY ==
[2020-12-01 13:54] VITALS: BP 129/82; PULSE 94; RESP 20; TEMP 36.6; O2SAT 98; BMI 28.0
--- NOTE | 2020-12-01 14:28 | HMH.EDUTC ---
[facility] – [place] Disposition Clinical Impression: Sinusitis Qualifiers: Sinusitis location: unspecified location Chronicity: acute Recurrence: non-recurrent Qualified Code(s): J01.90 - Acute sinusitis, unspecified Disposition: Home, Self-Care Condition on Discharge: Good Instructions: DI for Sinusitis Additional Instructions: Drink plenty of fluids. Take tylenol or ibuprofen for pain or fever. Take the medications as directed. Follow up with your regular doctor. GO TO THE ER FOR ANY WORSENING SYMPTOMS Prescriptions: Promethazine/Dextromethorphan [Promethazine-Dm Syrup] 5 ml PO Q6HP PRN #240 syrup PRN Reason: Cough Transmission Status: Received by [facility] methylPREDNISolone [Medrol] 4 mg PO DIRECTED 6 Days #21 tab.ds.pk Transmission Status: Received by [facility] Azithromycin [Z-Dixon 250mg Tab*] 250 mg PO UD DOSE PK #6 tab Transmission Status: Received by [facility] Referrals: Conrad Mishra MD [Primary Care Provider] - Forms: Work/School Release Time of Disposition: 14:34 Medical Decision Making - Medical Records Medical records reviewed: No: I reviewed the patient's medical records. - Shaheed Inquiry Pt receiving controlled substance: No Vital Signs: 12/01/20 13:54 12/01/20 14:56 Temperature 97.8 F 98 F Temperature Source Oral Pulse Rate 94 H Pulse Rate [Right] 94 H Respiratory Rate 20 18 Blood Pressure 129/82 Blood Pressure [Right Arm] 129/82 Blood Pressure Mean [Right Arm] 97 02 Sat by Pulse Oximetry 98 [facility] [place] HPI - General Stated complaint: body aches, chest pressure,cough Time Seen by Provider: 12/01/20 14:28 Mode of Arrival: Ambulatory Source of Information: Patient Limitations: No Limitations Description of Symptoms (Recalled from Triage Doc. by RN): pt thinks she has an upper respiratory infection. she had covid about a month ago. she c/o nasal congestion, cough, body aches, chest congestion and chills. HEENT Symptoms (Recalled from RN notes): Yes (nasal congestion) Resp Symptoms (Recalled from RN notes): Yes (cough) Skin Symptoms (Recalled from RN notes): No MS Symptoms (Recalled from RN notes): No Functional Status (Recalled from RN notes): body aches and chills - History of Present Illness Provider Complaint: She states that she has sinus congestion and a runny nose for the past 2 days. She gets sinus infections kind of frequently. She did have covid-19 about 6 weeks ago. She states that she got better from covid and she has tested negative for covid-19 since then. - Related Data Home Medications Medication Instructions Recorded Confirmed lamotrigine 100 mg tablet 100 mg PO DAILY 11/17/20 levonorgestrel 20 mcg/24 hours (6 INTRAUTERI 11/17/20 yrs) 52 mg intrauterine device Previous Rx's Medication Instructions Recorded Azithromycin [Z-Dixon 250mg Tab*] 250 mg PO UD DOSE PK #6 tab 12/01/20 Promethazine/Dextromethorphan 5 ml PO Q6HP PRN #240 syrup 12/01/20 [Promethazine-Dm Syrup] methylPREDNISolone [Medrol] 4 mg PO DIRECTED 6 Days #21 12/01/20 tab.ds.pk Allergies Allergy/AdvReac Type Severity Reaction Status Date / Time No Known Allergies Allergy Verified 12/01/20 14:02 - Worker's Comp Is this a Worker's Comp case?: No [facility] History - Hepatitis A Screen Drug use history?: No High risk sexual behaviors?: No History of sexually transmitted infection?: No Currently employed?: No Childcare worker?: No Do you have indoor plumbing?: Yes Do you have electricity?: Yes Attestation statement:: This patient has been screened for Hepatitis A risk factors. I have reviewed the patient's past medical history: Yes Medical History: Reports:: Deep Vein Thrombosis Denies:: Cancer, Diabetes Mellitus Type 1, Diabetes Mellitus Type 2, Internal Pacemaker, MRSA, Seizures Other Medical History: Denies: Blood Transfusion Reaction Comment: DEEP VEIN THROMBOSIS. HEP C. IV DRUG USER Laterality Cases: Bilateral:
[2020-12-01 14:56] VITALS: BP 129/82; PULSE 94; RESP 18; TEMP 36.6
== END 2020-12-01 14:56 | disposition home or self-care (01) ==
PROVIDERS: Emergency Provider Nurse Practitioner Family; PCP Emergency Medicine
DX: J01.90 Acute sinusitis, unspecified (principal)
CPT/HCPCS: 99202; G0463

== ENCOUNTER 2021-01-03 17:57 | Emergency (ER) | payer MEDICAID, SELFPAY ==
[2021-01-03 17:58] VITALS: BP 137/75; PULSE 102; RESP 20; TEMP 36.6; O2SAT 99; BMI 26.5
--- NOTE | 2021-01-03 18:13 | HMH.EDGENADL ---
ED Disposition Clinical Impression: Abdominal pain Qualifiers: Abdominal location: generalized Qualified Code(s): R10.84 - Generalized abdominal pain Nausea and vomiting Qualifiers: Vomiting type: unspecified Vomiting Intractability: non-intractable Qualified Code(s): R11.2 - Nausea with vomiting, unspecified Disposition: Left Against Medical Advice Condition on Discharge: Fair Instructions: DI for Acute Abdominal Pain, Nausea and Vomiting-Adult Additional Instructions: You have been evaluated for abdominal pain. We have not ruled out all possible causes. You have decided to leave AGAINST MEDICAL ADVICE. Take Zofran for nausea. Bentyl for cramps. Return to the emergency department at once for any new or worsening symptoms, pain, vomiting, fevers, other concerns. Follow-up with your primary care doctor within 24 to 48 hours. Prescriptions: Dicyclomine HCl [Bentyl 10mg capsule] 10 mg PO QID PRN #12 cap PRN Reason: Cramping Transmission Status: Received by [facility] Ondansetron [Zofran 4mg ODT] 4 mg PO Q6 PRN #12 tab PRN Reason: Nausea And Vomiting Transmission Status: Received by [facility] Referrals: Conrad Mishra MD [Primary Care Provider] - Time of Disposition: 19:48 - Critical Care Critical Care Time: No Attestation: On , the high probability of a clinically significant, sudden or life threatening deterioration of the following system(s) required my full and direct attention, intervention and personal management. The time I documented below is in addition to time spent performing reported procedures but includes the following listed in this critical care notation. Medical Decision Making - Medical Records Medical records reviewed: Yes: I reviewed the patient's medical records. - Shaheed Inquiry Pt receiving controlled substance: No Vital Signs: 01/03/21 17:58 01/03/21 19:53 Temperature 97.9 F 97.9 F Temperature Source Oral Pulse Rate 102 H Pulse Rate [Left Radial] 102 H Respiratory Rate 20 20 Blood Pressure 137/75 Blood Pressure [Left Arm] 137/75 Blood Pressure Mean [Left Arm] 95 Blood Pressure Source [Left Arm] Automatic Cuff Blood Pressure Position [Left Arm] Sitting 02 Sat by Pulse Oximetry 99 Oxygen Delivery Method Room Air - Lab Data Lab Results 01/03/21 18:53: Urine Color Yellow, Urine Appearance Sl cloudy, Urine pH 6.5, Ur Specific Garden 1.020, Urine Protein Negative, Urine Glucose (UA) Negative, Urine Ketones Trace, Urine Blood Negative, Urine Nitrate Negative, Urine Bilirubin Negative, Urine Urobilinogen 1.0, Ur Leukocyte Esterase Negative, Urine RBC None, Urine WBC None, Ur Squamous Epith Cells Occasional, Ur Transition Epith Cell Occ, Urine Bacteria None 01/03/21 18:53: Urine HCG, Qual Negative Orders (Tests/Meds): ED MEDICATIONS Discontinued Medications Generic Name Dose Route Start Last Admin Trade Name Keila PRN Reason Stop Dose Admin Morphine Sulfate 4 mg 01/03/21 18:13 01/03/21 19:24 Morphine 4mg/Ml Syringe IV 01/03/21 18:14 4 mg ONCE ONE Administration Ondansetron HCl 4 mg 01/03/21 18:12 01/03/21 19:24 Ondansetron 4mg/2ml Vial IV 01/03/21 18:13 4 mg ONCE ONE Administration ORDERS Category Date Time Status CBC w/Auto Diff [Complete Blood Count Auto Diff] Stat Lab 01/03/21 18:11 Ordered Comprehensive Metabolic Panel Stat Lab 01/03/21 18:12 Ordered HCG Qualitative, Serum Stat Lab 01/03/21 18:12 Ordered Lipase Stat Lab 01/03/21 18:12 Ordered Medical Decision Narrative: In summary this is a 30-year-old female presenting to the emergency department with abdominal pain and vomiting. Patient clinically stable on arrival. Tachycardic. Afebrile. Other vital signs within normal limits. Concern for acute appendicitis, gastroenteritis, cholelithiasis. Will obtain CBC, CMP, lipase, urinalysis, CT scan of the abdomen and pelvis. Patient given IV fluids, 4 mg IV morphine and 4 mg IV Z
[2021-01-03 19:02] LABS: Microscopic, Urine URINE MICROSCOPIC (MICROSCOPIC)
[2021-01-03 19:11] LABS: Appearance,Urine SL CLOUDY (Clear); Bilirubin,Urine Negative (Negative); Blood, Urine Negative (Negative); Color,Urine YELLOW (Yellow); Glucose,Urine (UA) Negative (Negative); Ketones,Urine TRACE (Negative); Leukocyte Esterase,Urine Negative (Negative); Nitrate,Urine Negative (Negative); PH,Urine 6.5 (5.0-8.5); Protein,Urine Negative (Negative)
[2021-01-03 19:23] LABS: Squamous Epithelial Cell,Urine Occasional #/hpf (0-5); Transitional Epi Cells,Urine OCC #/lpf (0-3)
[2021-01-03 19:26] LABS: Urine Pregnancy, HCG Qual. Negative (Negative)
--- NOTE | 2021-01-03 19:52 | PC.NURSE ---
pt refused CT scan and left AMA. dr bain talked to pt
[2021-01-03 19:53] VITALS: BP 137/75; PULSE 102; RESP 20; TEMP 36.6; O2SAT 99
== END 2021-01-03 19:55 | disposition left against medical advice (07) ==
PROVIDERS: Emergency Provider Emergency Medicine; PCP Emergency Medicine
DX: R10.84 Generalized abdominal pain (principal); R10.12 Left upper quadrant pain; F17.210 Nicotine dependence, cigarettes, uncomplicated
CPT/HCPCS: 81001; 81025; 96375; 99282; J2405

== ENCOUNTER 2021-03-07 09:02 | Emergency (ER) | payer MEDICAID, SELFPAY ==
[2021-03-07 09:02] VITALS: BP 123/78; PULSE 80; RESP 20; TEMP 37.1; O2SAT 98; BMI 26.5
--- NOTE | 2021-03-07 09:18 | HMH.EDUTC ---
[facility] [place] Disposition Clinical Impression: URI (upper respiratory infection) Qualifiers: URI type: unspecified URI Qualified Code(s): J06.9 - Acute upper respiratory infection, unspecified Disposition: Home, Self-Care Condition on Discharge: Good Instructions: DI for Strep Throat, Sore Throat Additional Instructions: *Monitor Temp, Over the counter Motrin or Tylenol as directed/as needed Tylenol every 4 hours and Motrin every 6 hours (as long as your family doctor has told you that you can take it) for fever or pain. and straight to ER if unable to lower temp less than 101.0 after medication given *Warm salt water gargles may help to soothe the throat *Throat Lozenges *Warm fluids like tea with honey may help to soothe the throat *Sleep elevated *Humidifier/Vaporizer Take medication as prescribed Your throat swab was sent for culture. Those results are typically sent to your primary care. Be sure to follow up in 2-3 days with your family doctor/primary care physician if no improvement so they can review those result and treat if necessary. If you don?t have a primary care doctor, I recommend you get one but in the mean time, you will have to return to a walk in clinic Follow up IMMEDIATELY for new or worsening symptoms or no Noticeable improvement over the next 48-72 hours. 911 for difficulty breathing or swallowing Prescriptions: Azithromycin [Z-Dixon 250mg Tab] 250 mg PO DIRECTED #6 tab Transmission Status: Pending to [facility] Referrals: Conrad Mishra MD [Primary Care Provider] - As needed Time of Disposition: 09:29 Medical Decision Making - Shaheed Inquiry Pt receiving controlled substance: No Shaheed was queried for this patient: No Vital Signs: 03/07/21 09:02 Temperature 98.7 F Temperature Source Oral Pulse Rate [Left Radial] 80 Respiratory Rate 20 Blood Pressure [Right Arm] 123/78 Blood Pressure Mean [Right Arm] 93 Blood Pressure Source [Right Arm] Automatic Cuff Blood Pressure Position [Right Arm] Sitting 02 Sat by Pulse Oximetry 98 Oxygen Delivery Method Room Air - Lab Data Lab results reviewed: Yes: I reviewed the patient's lab results. [facility] [place] HPI - General Stated complaint: possible strep Time Seen by Provider: 03/07/21 09:18 Mode of Arrival: Ambulatory Source of Information: Patient Limitations: No Limitations Description of Symptoms (Recalled from Triage Doc. by RN): c/o sore throat, fever, burning in throat, son had strep last week HEENT Symptoms (Recalled from RN notes): Yes Resp Symptoms (Recalled from RN notes): No Skin Symptoms (Recalled from RN notes): No MS Symptoms (Recalled from RN notes): No Functional Status (Recalled from RN notes): na - History of Present Illness Provider Complaint: Patient states that son had strep throat last week States that she is now having sore throat Hurts when she swallows and feels like she may have strep throat States today she was still having sore throat so she came in to get tessted - Related Data Home Medications Medication Instructions Recorded Confirmed lamotrigine 100 mg tablet 100 mg PO DAILY 11/17/20 levonorgestrel 20 mcg/24 hours (7 INTRAUTERI 11/17/20 yrs) 52 mg intrauterine device Previous Rx's Medication Instructions Recorded Azithromycin [Z-Dixon 250mg Tab*] 250 mg PO UD DOSE PK #6 tab 12/01/20 Promethazine/Dextromethorphan 5 ml PO Q6HP PRN #240 syrup 12/01/20 [Promethazine-Dm Syrup] methylPREDNISolone [Medrol] 4 mg PO DIRECTED 6 Days #21 12/01/20 tab.ds.pk Dicyclomine HCl [Bentyl 10mg 10 mg PO QID PRN #12 cap 01/03/21 capsule] Ondansetron [Zofran 4mg ODT] 4 mg PO Q6 PRN #12 tab 01/03/21 Azithromycin [Z-Dixon 250mg Tab] 250 mg PO DIRECTED #6 tab 03/07/21 Allergies Allergy/AdvReac Type Severity Reaction Status Date / Time No Known Allergies Allergy Verified 12/01/20 14:02 - Worker's Comp Is this a Worker's Comp case?: No [facility] History - Hepatitis A Screen [place]
[2021-03-07 09:34] LABS: UTC Strep Screen (Rapid) Positive (Negative)
[2021-03-07 09:39] VITALS: BP 123/78; PULSE 80; RESP 20; TEMP 37.1; O2SAT 98
== END 2021-03-07 09:41 | disposition home or self-care (01) ==
PROVIDERS: Emergency Provider Nurse Practitioner; PCP Emergency Medicine
DX: J02.0 Streptococcal pharyngitis (principal)
CPT/HCPCS: 87880; 99202; G0463

== ENCOUNTER 2021-09-25 11:18 | Emergency (ER) | payer MEDICAID, SELFPAY ==
[2021-09-25 12:16] VITALS: BP 101/50; PULSE 54; RESP 16; TEMP 36.7; O2SAT 100; BMI 30.1
--- NOTE | 2021-09-25 12:35 | HMH.EDUTC ---
[facility] [place] Disposition Clinical Impression: Low back pain Qualifiers: Chronicity: acute Back pain laterality: right Sciatica presence: without sciatica Qualified Code(s): M54.50 - Low back pain, unspecified Thoracic back pain Qualifiers: Chronicity: acute Back pain laterality: right Qualified Code(s): M54.6 - Pain in thoracic spine Disposition: Home, Self-Care Condition on Discharge: Good Instructions: Cyclobenzaprine, DI for Thoracic Back Pain, Thoracic Back Pain Additional Instructions: Go home and rest. It would be best if you rested tomorrow too. No heavy lifting. No twisting. The muscle relaxer (cyclobenzaprine--Flexeril) will make you drowsy, so don't drive or operate heavy machinery after taking it. Don't start the oral steroids (medrol dose pack) until tomorrow, since you had the shots in here today. Follow up with your regular doctor. GO TO THE ER FOR ANY WORSENING SYMPTOMS OR CONCERN, ESPECIALLY BOWEL OR BLADDER ISSUES, SADDLE AREA NUMBNESS, FEVER, ETC Prescriptions: Cyclobenzaprine HCl [Cyclobenzaprine 10mg Tab] 10 mg PO BIDP PRN #20 tab PRN Reason: Muscle Spasm Transmission Status: Received by [facility]91 methylPREDNISolone [Medrol] 4 mg PO DIRECTED 6 Days #21 packet Transmission Status: Received by [id number] Referrals: Conrad Mishra MD [Primary Care Provider] - Forms: Work/School Release Time of Disposition: 12:58 Medical Decision Making - Medical Records Medical records reviewed: No: I reviewed the patient's medical records. - Shaheed Inquiry Pt receiving controlled substance: No Vital Signs: 09/25/21 12:16 09/25/21 12:59 Temperature 98.1 F 98.1 F Temperature Source Oral Pulse Rate 54 L Pulse Rate [Left Radial] 54 L Respiratory Rate 16 16 Blood Pressure 101/50 L Blood Pressure [Right Arm] 101/50 L Blood Pressure Mean [Right Arm] 67 02 Sat by Pulse Oximetry 100 Orders (Tests/Meds): ED MEDICATIONS Discontinued Medications Generic Name Dose Route Start Last Admin Trade Name Freq PRN Reason Stop Dose Admin Ketorolac Tromethamine 60 mg 09/25/21 12:44 09/25/21 12:52 Ketorolac 60mg/2ml Vial IM 09/25/21 12:45 60 mg ONCE ONE Administration Methylprednisolone Sodium Succinate 125 mg 09/25/21 12:44 09/25/21 12:52 Methylprednisolone Sod Succ 125mg Vial IM 09/25/21 12:45 125 mg ONCE ONE Administration [facility] [place] HPI - General Stated complaint: AO 09/24 back pain Time Seen by Provider: 09/25/21 12:35 Mode of Arrival: Ambulatory Source of Information: Patient Limitations: No Limitations Description of Symptoms (Recalled from Triage Doc. by RN): pt here due to back pain. pt picked up kid out of bath tub and pt felt something pull in back HEENT Symptoms (Recalled from RN notes): No Resp Symptoms (Recalled from RN notes): No Skin Symptoms (Recalled from RN notes): No MS Symptoms (Recalled from RN notes): Yes Functional Status (Recalled from RN notes): wnl - History of Present Illness Provider Complaint: She states that she was lifting her heavy 2 year old son out of the bath tub yesterday when she felt something pull in her mid to upper back. - Related Data Home Medications Medication Instructions Recorded Confirmed levonorgestrel 20 mcg/24 hours (7 INTRAUTERI 11/17/20 04/12/21 yrs) 52 mg intrauterine device Previous Rx's Medication Instructions Recorded Cyclobenzaprine HCl 10 mg PO BIDP PRN #20 tab 09/25/21 [Cyclobenzaprine 10mg Tab] methylPREDNISolone [Medrol] 4 mg PO DIRECTED 6 Days #21 09/25/21 packet Allergies Allergy/AdvReac Type Severity Reaction Status Date / Time No Known Allergies Allergy Verified 09/25/21 12:20 - Worker's Comp Is this a Worker's Comp case?: No [facility] History - Hepatitis A Screen Attestation statement:: This patient has been screened for Hepatitis A risk factors. I have reviewed the patient's past medical history: Yes Medical History: Report
[2021-09-25 12:59] VITALS: BP 101/50; PULSE 54; RESP 16; TEMP 36.7
== END 2021-09-25 13:02 | disposition home or self-care (01) ==
PROVIDERS: Emergency Provider Nurse Practitioner Family; PCP Emergency Medicine
DX: M54.50 Low back pain, unspecified (principal); M54.6 Pain in thoracic spine; R42 Dizziness and giddiness; I10 Essential (primary) hypertension; K21.9 Gastro-esophageal reflux disease without esophagitis; F17.290 Nicotine dependence, other tobacco product, uncomplicated; Z86.718 Personal history of other venous thrombosis and embolism; Z82.49 Family history of ischemic heart disease and other diseases of the circulatory system
CPT/HCPCS: 96372; 99284

== ENCOUNTER 2021-10-24 13:53 | Emergency (ER) | payer MEDICAID, SELFPAY ==
--- NOTE | 2021-10-24 13:56 | XR_ITS ---
FINAL REPORT CLINICAL HISTORY: fall COMPARISON: January 17, 2020 FINDINGS: RIGHT FOOT Three views of the right foot demonstrate no acute fracture or dislocation. The visualized joint spaces are normally aligned. The soft tissues are unremarkable. IMPRESSION: No acute bony abnormality. Reviewed, Interpreted and Dictated by Marcin Oh III, MD Transcribed by Evita Madison Authenticated and . [facility]
--- NOTE | 2021-10-24 13:56 | XR_ITS ---
FINAL REPORT CLINICAL HISTORY: fall COMPARISON: January 17, 2020 FINDINGS: RIGHT ANKLE: Three views of the right ankle were obtained. There is no acute fracture or dislocation. The joint spaces and mortise are intact. There is no soft tissue abnormality. IMPRESSION: No acute bony abnormality. Reviewed, Interpreted and Dictated by Marcin Oh III, MD Transcribed by Evita Madison Authenticated and [facility]
[2021-10-24 14:21] VITALS: BP 142/82; PULSE 86; RESP 17; TEMP 36.8; O2SAT 98; BMI 28.1
--- NOTE | 2021-10-24 14:24 | HMH.EDUTC ---
[facility] [place] Clinical Impression: Ankle contusion Qualifiers: Encounter type: initial encounter Laterality: right Qualified Code(s): S90.01XA - Contusion of right ankle, initial encounter Foot contusion Qualifiers: Encounter type: initial encounter Laterality: right Qualified Code(s): S90.31XA - Contusion of right foot, initial encounter Disposition: Home, Self-Care Condition on Discharge: Good Instructions: How to Use Crutches, How To Perform RICE (Rest, Ice, Compress, Elevate), How to Apply an Rigo Wrap Additional Instructions: *weight bearing as tolerated *RICE, Rest the extremity, Ice 15-20 minutes 3-4 times daily, Compress- wear the rigo wrap as discussed as much as possible to help reduce swelling and pain, Elevate the extremity when at rest *Rigo wrap is for support and help control swelling, use it except in the shower. Be sure that is not to tight but not to loose either *Elevate when resting *Ibuprofen every 6-8 hours as needed for pain an inflammation. If need something more can take Tylenol in between doses of Ibuprofen to help Immediately follow up with your family doctor for new or worsening of symptoms, or no noticeable improvement over the next 3-5 days You can call back later this evening for the official reading of your xray Referrals: Conrad Mishra MD [Primary Care Provider] - As needed Adan Hunt MD [Staff Physician] - Forms: Work/School Release Medical Decision Making - Shaheed Inquiry Pt receiving controlled substance: No Shaheed was queried for this patient: No Vital Signs: 10/24/21 14:21 10/24/21 14:38 Temperature 98.3 F 98.3 F Temperature Source Oral Oral Pulse Rate 86 Pulse Rate [Left Radial] 86 Respiratory Rate 17 17 Blood Pressure 142/82 H Blood Pressure [Right Arm] 142/82 H Blood Pressure Mean [Right Arm] 102 02 Sat by Pulse Oximetry 98 - Radiology Data #1 Image(s): Ankle Image Reviewed: Yes I reviewed the patient's radiology image Preliminary Findings: No Fracture Seen #2 Image(s): Foot/Toes Image Reviewed: Yes I reviewed the patient's radiology image Preliminary Findings: No Fracture Seen [facility] [place]PI - General Stated complaint: AO fall 10/24 rt ankle pain Time Seen by Provider: 10/24/21 14:24 Description of Symptoms (Recalled from Triage Doc. by RN): patient comes in for right ankle pain. patient fell off stairs while she was attempting to change a lightbulb HEENT Symptoms (Recalled from RN notes): No Resp Symptoms (Recalled from RN notes): No Skin Symptoms (Recalled from RN notes): No MS Symptoms (Recalled from RN notes): Yes Functional Status (Recalled from RN notes): wnl - History of Present Illness Provider Complaint: Patient states that her light bulb went out and she was attempting to change the bulb when she lost her balance on the steps and slide down the steps States that she is having pain in her right heel and ankle area States that she tried to call into work and they told her she needed a doctors note where she missed work today - Related Data Home Medications Medication Instructions Recorded Confirmed levonorgestrel 20 mcg/24 hours (7 INTRAUTERI 11/17/20 04/12/21 yrs) 52 mg intrauterine device Previous Rx's Medication Instructions Recorded Cyclobenzaprine HCl 10 mg PO BIDP PRN #20 tab 09/25/21 [Cyclobenzaprine 10mg Tab] methylPREDNISolone [Medrol] 4 mg PO DIRECTED 6 Days #21 09/25/21 packet Allergies Allergy/AdvReac Type Severity Reaction Status Date / Time No Known Allergies Allergy Verified 09/25/21 12:20 - Worker's Comp Is this a Worker's Comp case?: No [facility] History - Hepatitis A Screen Attestation statement:: This patient has been screened for Hepatitis A risk factors. I have reviewed the patient's past medical history: Yes Medical History: Reports:: Deep Vein Thrombosis Denies:: Cancer, Diabetes Mellitus Type 1, Diabetes Mellitus Type 2, Internal Pacemaker, MRSA, Seizures Oth
[2021-10-24 14:38] VITALS: BP 142/82; PULSE 86; RESP 17; TEMP 36.8
== END 2021-10-24 14:44 | disposition home or self-care (01) ==
PROVIDERS: Emergency Provider Nurse Practitioner; PCP Emergency Medicine
DX: S90.01XA Contusion of right ankle, initial encounter (principal); S90.31XA Contusion of right foot, initial encounter; I82.409 Acute embolism and thrombosis of unspecified deep veins of unspecified lower extremity; B19.20 Unspecified viral hepatitis C without hepatic coma; F17.290 Nicotine dependence, other tobacco product, uncomplicated; W10.9XXA Fall (on) (from) unspecified stairs and steps, initial encounter
CPT/HCPCS: 73610; 73630; 99213; G0463

== ENCOUNTER 2022-01-02 16:22 | Emergency (ER) | payer MEDICAID, SELFPAY ==
--- NOTE | 2022-01-02 17:33 | HMH.EDUTC ---
[facility] [place] Disposition Clinical Impression: Viral syndrome, Exposure to COVID-19 virus Disposition: Home, Self-Care Condition on Discharge: Good Instructions: DI for COVID-19 (Suspected or Confirmed ), Preventing the Spread of Coronavirus Discharge Instructions Additional Instructions: Drink plenty of fluids. Take tylenol or ibuprofen for pain or fever. Take the medications as directed. Follow up with your regular doctor. GO TO THE ER FOR ANY WORSENING SYMPTOMS Quarantine until you know the results of your covid-19 test. Notify your school or workplace of your results and follow their instructions regarding return to work/school. Prescriptions: Promethazine/Dextromethorphan [Promethazine-Dm Syrup] 5 ml PO Q6HP PRN #240 ml PRN Reason: Cough Transmission Status: Received by [id number] Ondansetron [Zofran 4mg ODT] 4 mg PO Q8HP PRN #20 tab PRN Reason: Nausea Transmission Status: Received by [id number] Referrals: Conrad Mishra MD [Primary Care Provider] - Forms: Work/School Release Time of Disposition: 17:45 Medical Decision Making - Medical Records Medical records reviewed: No: I reviewed the patient's medical records. - Shaheed Inquiry Pt receiving controlled substance: No Vital Signs: 01/02/22 17:46 01/02/22 17:58 Temperature 98.6 F 98.6 F Temperature Source Oral Pulse Rate 73 Pulse Rate [Left] 73 Respiratory Rate 16 16 Blood Pressure 120/76 Blood Pressure [Right Arm] 120/76 Blood Pressure Mean [Right Arm] 90 02 Sat by Pulse Oximetry 100 - Lab Data Lab Results 01/02/22 17:42: Influenza Type A Ag Negative, Influenza Type B Ag Negative 01/02/22 17:42: Strep Scn Rapid Clinic Negative Orders (Tests/Meds): ORDERS Category Date Time Status Covid-19 Nasal PCR ([facility]) Routine Lab 01/02/22 17:28 Received Strep Screen Confirmation Stat Micro 01/02/22 17:42 Received [facility] [place] HPI - General Stated complaint: exposed fever,cough body aches Time Seen by Provider: 01/02/22 17:33 - History of Present Illness Provider Complaint: She states that for the past 2 day she has had sinus congestion, body aches, chills and she has felt bad. - Related Data Home Medications Medication Instructions Recorded Confirmed levonorgestrel 20 mcg/24 hours (7 INTRAUTERI 11/17/20 04/12/21 yrs) 52 mg intrauterine device Previous Rx's Medication Instructions Recorded Cyclobenzaprine HCl 10 mg PO BIDP PRN #20 tab 09/25/21 [Cyclobenzaprine 10mg Tab] methylPREDNISolone [Medrol] 4 mg PO DIRECTED 6 Days #21 09/25/21 packet Ondansetron [Zofran 4mg ODT] 4 mg PO Q8HP PRN #20 tab 01/02/22 Promethazine/Dextromethorphan 5 ml PO Q6HP PRN #240 ml 01/02/22 [Promethazine-Dm Syrup] Allergies Allergy/AdvReac Type Severity Reaction Status Date / Time No Known Allergies Allergy Verified 09/25/21 12:20 [facility] History - Hepatitis A Screen Attestation statement:: This patient has been screened for Hepatitis A risk factors. I have reviewed the patient's past medical history: Yes Medical History: Reports:: Deep Vein Thrombosis Denies:: Cancer, Diabetes Mellitus Type 1, Diabetes Mellitus Type 2, Internal Pacemaker, MRSA, Seizures Other Medical History: Denies: Blood Transfusion Reaction Comment: DEEP VEIN THROMBOSIS. HEP C. IV DRUG USER Laterality Cases: Bilateral: Tonsillectomy Other Surgeries: Yes: , Other. No: Pacemaker Amputation: No Fractures: No Comment: TONSILX--- CHILD. CELLULITIS ON BOTH ARMS---2017 - Social History Smoking Status: Current every day smoker Tobacco Type: e-cigarettes # Packs/Day (cigarettes): 1 Alcohol Intake: never Alcohol Intake Frequency:: other Substance Use Type: former substance user, heroin Occupational Status: other Housing: house Household Members: other Family Hx:: No significant family history ROS Obtained: Yes All systems reviewed & no additional complaints - Constitutional
[2022-01-02 17:43] LABS: UTC Influenza A Antigen Negative (Negative); UTC Strep Screen (Rapid) Negative (Negative)
[2022-01-02 17:44] LABS: UTC Influenza B Antigen Negative (Negative)
[2022-01-02 17:46] VITALS: BP 120/76; PULSE 73; RESP 16; TEMP 37; O2SAT 100; BMI 26.5
[2022-01-02 17:58] VITALS: BP 120/76; PULSE 73; RESP 16; TEMP 37
== END 2022-01-02 17:59 | disposition home or self-care (01) ==
PROVIDERS: Emergency Provider Nurse Practitioner Family; PCP Emergency Medicine
DX: B34.9 Viral infection, unspecified (principal); Z20.822 Contact with and (suspected) exposure to COVID-19; R50.9 Fever, unspecified; R05.9 Cough, unspecified; R52 Pain, unspecified
CPT/HCPCS: 87804; 87880; 99212; C9803; G0463; U0003; U0005

== ENCOUNTER → 2022-07-04 11:51 | Outpatient (CLI) | payer MEDICAID, SELFPAY | PROVIDERS: Nurse Practitioner Family; PCP Emergency Medicine; Visit Provider Nurse Practitioner Family | DX: F11.20 Opioid dependence, uncomplicated (principal) ==

== ENCOUNTER 2022-07-07 10:34 | Emergency (ER) | payer MEDICAID, SELFPAY ==
[2022-07-07 11:05] VITALS: BP 112/42; PULSE 66; RESP 12; TEMP 36.6; O2SAT 99; BMI 22.8
--- NOTE | 2022-07-07 12:39 | EXP.UTC ---
Discharge Plan Disposition Patient Disposition: Home, Self-Care Condition: Good Prescriptions Prescriptions: New polymyxin B sulf-trimethoprim [Polytrim] 10,000 unit- 1 mg/mL drops 1 drp ophthalmic (eye) Q3H 10 Days Qty: 10 0RF Rx Instructions: while awake; do not exceed 6 doses in 24 hours No Action Mirena 20 mcg/24 hours (6 yrs) 52 mg intrauterine device INTRAUTERI Referrals Follow up/Referrals: Conrad Mishra MD [Primary Care Provider] - See instructions Clinical Impressions Clinical Impression: Mucopurulent conjunctivitis of right eye Instructions Patient Instructions: DI for Conjunctivitis Discharge ED Provider: Jerri Rahman [facility] [place] HPI General Stated complaint: right eye closed shut Mode of Arrival: Ambulatory Source of Information: Patient Limitations: No Limitations Time Seen by Provider: 07/07/22 12:39 Description of Symptoms (Recalled from Triage Doc. by RN): right eye swollen shut, started swelling yesterday. Lots of drainage. States she doesn't remember getting anything in it. HEENT Symptoms (Recalled from RN notes): Yes Resp Symptoms (Recalled from RN notes): No Skin Symptoms (Recalled from RN notes): No MS Symptoms (Recalled from RN notes): No Functional Status (Recalled from RN notes): n/a History of Present Illness Provider Complaint: Pt relates that she was cleaning yesterday and states that she feels that something may have gotten in her right eye. She states that she woke up this morning with her eye swollen shut with purulent drainage. She states that she has washed her eye out and put cool compresses on her eye. Related Data Home Medications Medication Instructions Recorded Confirmed levonorgestrel 21 mcg/24 hours (8 intrauterine 11/17/20 06/26/22 yrs) 52 mg intrauterine device (Mirena) Previous Rx's Medication Instructions Recorded polymyxin B sulfate 10,000 1 drp ophthalmic (eye) Q3H 10 days 07/07/22 unit-trimethoprim 1 mg/mL eye #10 mL drops (Polytrim) Allergies Allergy/AdvReac Type Severity Reaction Status Date / Time No Known Allergies Allergy Verified 07/07/22 11:19 Worker's Comp Is this a Worker's Comp case?: No [facility] Disclaimer: The information contained in this section may have been updated after the patient was seen, as this information can be updated by other users. Medical History (Updated 07/07/22 @ 12:51 by Jerri Rahman APRN) Abdominal pain Abdominal wall pain in left lower quadrant Abscess of forearm, left Abscess of left hand Anemia due to acute blood loss Ankle contusion Exposure to COVID-19 virus Foot contusion Hematoma complicating a procedure Hepatitis C History of DVT of lower extremity Low back pain Lumbar radiculopathy Medical clearance for incarceration Postprocedural hematoma of abdominal wall Scar tissue Sinusitis Thoracic back pain Thoracic spine pain URI (upper respiratory infection) Viral syndrome Social History Smoking Status: Current every day smoker tobacco type: e-cigarettes second hand exposure: No alcohol intake: never substance use type: former substance user and heroin current occupational status: other Travel in the last 8 weeks: None household members: other housing: house number of children: 2 current occupational exposures/hazards: No caffeine: Yes ROS Obtained: Yes All systems reviewed & no additional complaints except as documented Constitutional Constitutional: Reports system reviewed and no additional complaints, except as documented Eyes Eyes: Reports eye discharge, Reports irritation and Reports eye pain ENT Ears, Nose, Mouth, and Throat: Reports system reviewed and no additional complaints, except as documented Cardiovascular Cardiovascular: Reports system reviewed and no additional complaints, except as documented Respiratory Respiratory: Reports system reviewed and no additio
[2022-07-07 12:56] VITALS: BP 112/42; PULSE 66; RESP 20; TEMP 36.6; O2SAT 99
== END 2022-07-07 12:55 | disposition home or self-care (01) ==
PROVIDERS: Emergency Provider Nurse Practitioner Family; PCP Emergency Medicine
DX: H10.021 Other mucopurulent conjunctivitis, right eye (principal)
CPT/HCPCS: 99212; 99213; G0463

== ENCOUNTER → 2022-07-16 09:15 | Outpatient (CLI) | payer MEDICAID, SELFPAY ==
[2022-07-16 09:54] LABS: Amphetamine/Metha Screen,Urine Negative ng/ml (<1000)
[2022-07-16 09:55] LABS: Barbiturates Screen,Urine Negative ng/ml (<200)
[2022-07-16 09:56] LABS: Benzodiazepines Screen,Urine Negative ng/ml (<200); Cannabinoid Screen,Urine Positive ng/ml (<50)
[2022-07-16 09:57] LABS: Cocaine Screen,Urine Negative ng/ml (<300); Methadone Screen,Urine Negative ng/ml (<300)
[2022-07-16 09:58] LABS: Opiate Screen,Urine Negative ng/ml (<300)
[2022-07-16 09:59] LABS: Phencyclidine Screen,Urine Negative ng/ml (<25)
== END ==
PROVIDERS: PCP Emergency Medicine; Visit Provider Nurse Practitioner Family
DX: F11.20 Opioid dependence, uncomplicated (principal); F11.21 Opioid dependence, in remission; F15.21 Other stimulant dependence, in remission
CPT/HCPCS: 80305

== ENCOUNTER → 2022-08-10 14:48 | Outpatient (CLI) | payer MEDICAID, SELFPAY ==
[2022-08-15 12:54] LABS: 6-Acetylmorphine Negative ng/mL (CUTOFF:10); Amphetamines Negative ng/mL (CUTOFF:500); Barbiturates Negative ng/mL (CUTOFF:200); Benzodiazepines Negative ng/mL (CUTOFF:200); Buprenorphine Negative ng/mL (CUTOFF:5); Carisoprodol Negative ng/mL (CUTOFF:100); Cocaine Metabolite Negative ng/mL (CUTOFF:150); Fentanyl Negative ng/mL (CUTOFF:2.0); Gabapentin Negative ug/mL (CUTOFF:1.5); Marijuana MTB (THC) Negative ng/mL (CUTOFF:20); Methadone Negative ng/mL (CUTOFF:300); Nitrites Negative (NEGATIVE); Opiates Negative ng/mL (CUTOFF:300); Phencyclidine Negative ng/mL (CUTOFF:25); Propoxyphene Negative ng/mL (CUTOFF:300); Tapentadol Negative ng/mL (CUTOFF:200); Tramadol Negative ng/mL (CUTOFF:200); Urine pH 7.6 (4.5-8.9)
== END ==
PROVIDERS: PCP Nurse Practitioner Family; Visit Provider Nurse Practitioner Family
DX: F12.20 Cannabis dependence, uncomplicated (principal)
CPT/HCPCS: 80307

== ENCOUNTER → 2022-08-15 10:58 | Outpatient (CLI) | payer MEDICAID, SELFPAY ==
[2022-08-18 18:09] LABS: 6-Acetylmorphine Negative ng/mL (CUTOFF:10); Amphetamines Negative ng/mL (CUTOFF:500); Barbiturates Negative ng/mL (CUTOFF:200); Benzodiazepines Negative ng/mL (CUTOFF:200); Buprenorphine Negative ng/mL (CUTOFF:5); Carisoprodol Negative ng/mL (CUTOFF:100); Cocaine Metabolite Negative ng/mL (CUTOFF:150); Fentanyl Negative ng/mL (CUTOFF:2.0); Gabapentin Negative ug/mL (CUTOFF:1.5); Marijuana MTB (THC) Negative ng/mL (CUTOFF:20); Methadone Negative ng/mL (CUTOFF:300); Nitrites Negative (NEGATIVE); Opiates Negative ng/mL (CUTOFF:300); Phencyclidine Negative ng/mL (CUTOFF:25); Propoxyphene Negative ng/mL (CUTOFF:300); Tapentadol Negative ng/mL (CUTOFF:200); Tramadol Negative ng/mL (CUTOFF:200); Urine pH 7.6 (4.5-8.9)
== END ==
PROVIDERS: PCP Nurse Practitioner Family; Visit Provider Nurse Practitioner Family
DX: F12.20 Cannabis dependence, uncomplicated (principal)
CPT/HCPCS: 80307

== ENCOUNTER → 2022-08-31 09:27 | Outpatient (CLI) | payer MEDICAID, SELFPAY ==
[2022-09-02 23:08] LABS: 6-Acetylmorphine Negative ng/mL (CUTOFF:10); Amphetamines Negative ng/mL (CUTOFF:300); Barbiturates Negative ng/mL (CUTOFF:200); Benzodiazepines Negative ng/mL (CUTOFF:50); Buprenorphine Negative ng/mL (CUTOFF:5); Carisoprodol Negative ng/mL (CUTOFF:100); Cocaine Metabolite Negative ng/mL (CUTOFF:150); Fentanyl Negative ng/mL (CUTOFF:2.0); Gabapentin Negative ug/mL (CUTOFF:1.0); Marijuana MTB (THC) Negative ng/mL (CUTOFF:20); Methadone Negative ng/mL (CUTOFF:100); Nitrites Negative (NEGATIVE); Opiates Negative ng/mL (CUTOFF:100); Phencyclidine Negative ng/mL (CUTOFF:25); Propoxyphene Negative ng/mL (CUTOFF:300); Tapentadol Negative ng/mL (CUTOFF:200); Tramadol Negative ng/mL (CUTOFF:200); Urine pH 5.5 (4.5-8.9)
== END ==
PROVIDERS: PCP Nurse Practitioner Family; Visit Provider Nurse Practitioner Family
DX: F12.20 Cannabis dependence, uncomplicated (principal)
CPT/HCPCS: 80307

== ENCOUNTER → 2022-09-06 09:49 | Outpatient (CLI) | payer MEDICAID, SELFPAY ==
[2022-09-09 17:10] LABS: 6-Acetylmorphine Negative ng/mL (CUTOFF:10); Amphetamines Negative ng/mL (CUTOFF:300); Barbiturates Negative ng/mL (CUTOFF:200); Benzodiazepines Negative ng/mL (CUTOFF:50); Buprenorphine Negative ng/mL (CUTOFF:5); Carisoprodol Negative ng/mL (CUTOFF:100); Cocaine Metabolite Negative ng/mL (CUTOFF:150); Ethanol Biomarkers Negative ng/mL (CUTOFF:500); Fentanyl Negative ng/mL (CUTOFF:2.0); Gabapentin Negative ug/mL (CUTOFF:1.0); Marijuana MTB (THC) Negative ng/mL (CUTOFF:20); Methadone Negative ng/mL (CUTOFF:100); Nitrites Negative (NEGATIVE); Opiates Negative ng/mL (CUTOFF:100); Phencyclidine Negative ng/mL (CUTOFF:25); Propoxyphene Negative ng/mL (CUTOFF:300); Tapentadol Negative ng/mL (CUTOFF:200); Tramadol Negative ng/mL (CUTOFF:200)
== END ==
PROVIDERS: PCP Emergency Medicine; Visit Provider Nurse Practitioner Family
DX: F12.20 Cannabis dependence, uncomplicated (principal)
CPT/HCPCS: 80307

== ENCOUNTER 2022-09-13 14:39 | Emergency (ER) | payer MEDICAID, SELFPAY ==
[2022-09-13 14:46] VITALS: BP 121/71; PULSE 70; RESP 19; TEMP 36.8; O2SAT 99; BMI 21.9
--- NOTE | 2022-09-13 14:51 | EXP.UTC ---
Discharge Plan Disposition Patient Disposition: Home, Self-Care Condition: Good Prescriptions Prescriptions: No Action Mirena 20 mcg/24 hours (6 yrs) 52 mg intrauterine device INTRAUTERI polymyxin B sulf-trimethoprim [Polytrim] 10,000 unit- 1 mg/mL drops 1 drp ophthalmic (eye) Q3H 10 Days Qty: 10 0RF Rx Instructions: while awake; do not exceed 6 doses in 24 hours Referrals Follow up/Referrals: Conrad Mishra MD [Primary Care Provider] - See instructions Activity Restrictions/Add. Instructions Additional Instructions/Restrictions: Oatmeal baths may help with blisters Follow up with your Family Doctor if no improvement or any worsening of symptoms Return if needed Straight to ER if any life threatening symptoms Clinical Impressions Clinical Impression: Rash and nonspecific skin eruption Stand Alone Forms Stand Alone Forms: Work/School Release Instructions Patient Instructions: Hand, Foot, and Mouth Disease Discharge ED Provider: Mirian Medina [facility] [place] [place] HPI General Stated complaint: Rash, fever Time Seen by Provider: 09/13/22 14:51 Description of Symptoms (Recalled from Triage Doc. by RN): Pt states that her son has hand foot and mouth and thinks she may have caught it. Started with a rash all over and low grade fever that started 2 days ago. HEENT Symptoms (Recalled from RN notes): No Resp Symptoms (Recalled from RN notes): No Skin Symptoms (Recalled from RN notes): No MS Symptoms (Recalled from RN notes): No Functional Status (Recalled from RN notes): wnl History of Present Illness Provider Complaint: Patient states that her son has hand foot and mother and now she is starting with symptoms States that she had a low grade fever a couple of days ago and today she started breaking out in rash on her buttocks and inside mouth like he did so work made her come in and get checked Related Data Home Medications Medication Instructions Recorded Confirmed levonorgestrel 21 mcg/24 hours (8 intrauterine 11/17/20 06/26/22 yrs) 52 mg intrauterine device (Mirena) Previous Rx's Medication Instructions Recorded polymyxin B sulfate 10,000 1 drp ophthalmic (eye) Q3H 10 days 07/07/22 unit-trimethoprim 1 mg/mL eye #10 mL drops (Polytrim) Allergies Allergy/AdvReac Type Severity Reaction Status Date / Time No Known Allergies Allergy Verified 07/07/22 11:19 Worker's Comp Is this a Worker's Comp case?: No [facility] Disclaimer: The information contained in this section may have been updated after the patient was seen, as this information can be updated by other users. Medical History (Updated 09/13/22 @ 14:56 by Mirian Medina APRN) Abdominal pain Abdominal wall pain in left lower quadrant Abscess of forearm, left Abscess of left hand Anemia due to acute blood loss Ankle contusion Exposure to COVID-19 virus Foot contusion Hematoma complicating a procedure Hepatitis C History of DVT of lower extremity Low back pain Lumbar radiculopathy Medical clearance for incarceration Postprocedural hematoma of abdominal wall Scar tissue Sinusitis Thoracic back pain Thoracic spine pain URI (upper respiratory infection) Viral syndrome Social History Smoking Status: Current every day smoker tobacco type: e-cigarettes second hand exposure: No alcohol intake: never substance use type: former substance user and heroin current occupational status: other Travel in the last 8 weeks: None household members: other housing: house number of children: 2 current occupational exposures/hazards: No caffeine: Yes ROS Obtained: Yes All systems reviewed & no additional complaints except as documented and Yes Systems reviewed as appropriate & no additional complaints except as documented Constitutional Constitutional: Reports system reviewed and no additional complaints, except as documented, Reports as per HPI and Report
[2022-09-13 15:03] VITALS: BP 121/71; PULSE 109; RESP 19; TEMP 37.1; O2SAT 99
== END 2022-09-13 15:05 | disposition home or self-care (01) ==
PROVIDERS: Emergency Provider Nurse Practitioner; PCP Emergency Medicine
DX: R21 Rash and other nonspecific skin eruption (principal); R50.9 Fever, unspecified; F17.290 Nicotine dependence, other tobacco product, uncomplicated
CPT/HCPCS: 99212; 99213; G0463

== ENCOUNTER → 2022-09-14 09:20 | Outpatient (CLI) | payer MEDICAID, SELFPAY ==
[2022-09-17 01:06] LABS: 6-Acetylmorphine Negative ng/mL (CUTOFF:10); Amphetamines Negative ng/mL (CUTOFF:300); Barbiturates Negative ng/mL (CUTOFF:200); Benzodiazepines Negative ng/mL (CUTOFF:50); Buprenorphine Negative ng/mL (CUTOFF:5); Carisoprodol Negative ng/mL (CUTOFF:100); Cocaine Metabolite Negative ng/mL (CUTOFF:150); Ethanol Biomarkers Negative ng/mL (CUTOFF:500); Fentanyl Negative ng/mL (CUTOFF:2.0); Gabapentin Negative ug/mL (CUTOFF:1.0); Marijuana MTB (THC) Negative ng/mL (CUTOFF:20); Methadone Negative ng/mL (CUTOFF:100); Nitrites Negative (NEGATIVE); Opiates Negative ng/mL (CUTOFF:100); Phencyclidine Negative ng/mL (CUTOFF:25); Propoxyphene Negative ng/mL (CUTOFF:300); Tapentadol Negative ng/mL (CUTOFF:200); Tramadol Negative ng/mL (CUTOFF:200)
== END ==
PROVIDERS: PCP Emergency Medicine; Visit Provider Nurse Practitioner Family
DX: F12.20 Cannabis dependence, uncomplicated (principal)
CPT/HCPCS: 80307

== ENCOUNTER → 2022-09-26 10:25 | Outpatient (CLI) | payer MEDICAID, SELFPAY ==
[2022-09-29 08:03] LABS: 6-Acetylmorphine Negative ng/mL (CUTOFF:10); Amphetamines Negative ng/mL (CUTOFF:300); Barbiturates Negative ng/mL (CUTOFF:200); Benzodiazepines Negative ng/mL (CUTOFF:50); Buprenorphine Negative ng/mL (CUTOFF:5); Carisoprodol Negative ng/mL (CUTOFF:100); Cocaine Metabolite Negative ng/mL (CUTOFF:150); Ethanol Biomarkers Negative ng/mL (CUTOFF:500); Fentanyl Negative ng/mL (CUTOFF:2.0); Gabapentin Negative ug/mL (CUTOFF:1.0); Marijuana MTB (THC) Negative ng/mL (CUTOFF:20); Methadone Negative ng/mL (CUTOFF:100); Nitrites Negative (NEGATIVE); Opiates Negative ng/mL (CUTOFF:100); Phencyclidine Negative ng/mL (CUTOFF:25); Propoxyphene Negative ng/mL (CUTOFF:300); Tapentadol Negative ng/mL (CUTOFF:200); Tramadol Negative ng/mL (CUTOFF:200); Urine pH 8.4 (4.5-8.9)
== END ==
PROVIDERS: PCP Emergency Medicine; Visit Provider Nurse Practitioner Family
DX: F12.20 Cannabis dependence, uncomplicated (principal)
CPT/HCPCS: 80307

== ENCOUNTER → 2022-10-03 10:29 | Outpatient (CLI) | payer MEDICAID, SELFPAY ==
[2022-10-06 17:32] LABS: 6-Acetylmorphine Negative ng/mL (CUTOFF:10); Amphetamines Negative ng/mL (CUTOFF:300); Barbiturates Negative ng/mL (CUTOFF:200); Benzodiazepines Negative ng/mL (CUTOFF:50); Buprenorphine Negative ng/mL (CUTOFF:5); Carisoprodol Negative ng/mL (CUTOFF:100); Cocaine Metabolite Negative ng/mL (CUTOFF:150); Ethanol Biomarkers Negative ng/mL (CUTOFF:500); Fentanyl Negative ng/mL (CUTOFF:2.0); Gabapentin Negative ug/mL (CUTOFF:1.0); Marijuana MTB (THC) Negative ng/mL (CUTOFF:20); Methadone Negative ng/mL (CUTOFF:100); Nitrites Negative (NEGATIVE); Opiates Negative ng/mL (CUTOFF:100); Phencyclidine Negative ng/mL (CUTOFF:25); Propoxyphene Negative ng/mL (CUTOFF:300); Tapentadol Negative ng/mL (CUTOFF:200); Tramadol Negative ng/mL (CUTOFF:200); Urine pH 7.8 (4.5-8.9)
== END ==
PROVIDERS: PCP Emergency Medicine; Visit Provider Nurse Practitioner Family
DX: F12.20 Cannabis dependence, uncomplicated (principal)
CPT/HCPCS: 80307

== ENCOUNTER → 2022-10-19 14:45 | Outpatient (CLI) | payer MEDICAID, SELFPAY ==
[2022-10-24 10:46] LABS: 6-Acetylmorphine Negative ng/mL (CUTOFF:10); Amphetamines Negative ng/mL (CUTOFF:300); Barbiturates Negative ng/mL (CUTOFF:200); Benzodiazepines Negative ng/mL (CUTOFF:50); Buprenorphine Negative ng/mL (CUTOFF:5); Carisoprodol Negative ng/mL (CUTOFF:100); Cocaine Metabolite Negative ng/mL (CUTOFF:150); Ethanol Biomarkers Negative ng/mL (CUTOFF:500); Fentanyl Negative ng/mL (CUTOFF:2.0); Gabapentin Negative ug/mL (CUTOFF:1.0); Marijuana MTB (THC) Negative ng/mL (CUTOFF:20); Methadone Negative ng/mL (CUTOFF:100); Nitrites Negative (NEGATIVE); Opiates Negative ng/mL (CUTOFF:100); Phencyclidine Negative ng/mL (CUTOFF:25); Propoxyphene Negative ng/mL (CUTOFF:300); Tapentadol Negative ng/mL (CUTOFF:200); Tramadol Negative ng/mL (CUTOFF:200); Urine pH 8.7 (4.5-8.9)
== END ==
PROVIDERS: PCP Emergency Medicine; Visit Provider Nurse Practitioner Family
DX: F12.20 Cannabis dependence, uncomplicated (principal)
CPT/HCPCS: 80307

== ENCOUNTER → 2022-10-31 10:01 | Outpatient (CLI) | payer MEDICAID, SELFPAY ==
[2022-11-02 20:04] LABS: 6-Acetylmorphine Negative ng/mL (CUTOFF:10); Amphetamines Negative ng/mL (CUTOFF:300); Barbiturates Negative ng/mL (CUTOFF:200); Benzodiazepines Negative ng/mL (CUTOFF:50); Buprenorphine Negative ng/mL (CUTOFF:5); Carisoprodol Negative ng/mL (CUTOFF:100); Cocaine Metabolite Negative ng/mL (CUTOFF:150); Ethanol Biomarkers Negative ng/mL (CUTOFF:500); Fentanyl Negative ng/mL (CUTOFF:2.0); Gabapentin Negative ug/mL (CUTOFF:1.0); Marijuana MTB (THC) Negative ng/mL (CUTOFF:20); Methadone Negative ng/mL (CUTOFF:100); Nitrites Negative (NEGATIVE); Opiates Negative ng/mL (CUTOFF:100); Phencyclidine Negative ng/mL (CUTOFF:25); Propoxyphene Negative ng/mL (CUTOFF:300); Tapentadol Negative ng/mL (CUTOFF:200); Tramadol Negative ng/mL (CUTOFF:200); Urine pH 8.1 (4.5-8.9)
== END ==
PROVIDERS: PCP Emergency Medicine; Visit Provider Nurse Practitioner Family
DX: F12.20 Cannabis dependence, uncomplicated (principal); Z79.899 Other long term (current) drug therapy
CPT/HCPCS: 80307

== ENCOUNTER → 2022-11-07 15:09 | Outpatient (CLI) | payer MEDICAID, SELFPAY ==
[2022-11-10 20:09] LABS: 6-Acetylmorphine Negative ng/mL (CUTOFF:10); Amphetamines Negative ng/mL (CUTOFF:300); Barbiturates Negative ng/mL (CUTOFF:200); Benzodiazepines Negative ng/mL (CUTOFF:50); Buprenorphine Negative ng/mL (CUTOFF:5); Carisoprodol Negative ng/mL (CUTOFF:100); Cocaine Metabolite Negative ng/mL (CUTOFF:150); Ethanol Biomarkers Negative ng/mL (CUTOFF:500); Fentanyl Negative ng/mL (CUTOFF:2.0); Gabapentin Negative ug/mL (CUTOFF:1.0); Marijuana MTB (THC) Negative ng/mL (CUTOFF:20); Methadone Negative ng/mL (CUTOFF:100); Nitrites Negative (NEGATIVE); Opiates Negative ng/mL (CUTOFF:100); Phencyclidine Negative ng/mL (CUTOFF:25); Propoxyphene Negative ng/mL (CUTOFF:300); Tapentadol Negative ng/mL (CUTOFF:200); Tramadol Negative ng/mL (CUTOFF:200); Urine pH 5.9 (4.5-8.9)
== END ==
PROVIDERS: PCP Emergency Medicine; Visit Provider Nurse Practitioner Family
DX: F12.20 Cannabis dependence, uncomplicated (principal)
CPT/HCPCS: 80307

== ENCOUNTER → 2022-11-21 12:57 | Outpatient (CLI) | payer MEDICAID, SELFPAY ==
[2022-11-25 09:09] LABS: 6-Acetylmorphine Negative ng/mL (CUTOFF:10); Amphetamines Negative ng/mL (CUTOFF:300); Barbiturates Negative ng/mL (CUTOFF:200); Benzodiazepines Negative ng/mL (CUTOFF:50); Buprenorphine Negative ng/mL (CUTOFF:5); Carisoprodol Negative ng/mL (CUTOFF:100); Cocaine Metabolite Negative ng/mL (CUTOFF:150); Ethanol Biomarkers Negative ng/mL (CUTOFF:500); Fentanyl Negative ng/mL (CUTOFF:2.0); Gabapentin Negative ug/mL (CUTOFF:1.0); Marijuana MTB (THC) Negative ng/mL (CUTOFF:20); Methadone Negative ng/mL (CUTOFF:100); Nitrites Negative (NEGATIVE); Opiates Negative ng/mL (CUTOFF:100); Phencyclidine Negative ng/mL (CUTOFF:25); Propoxyphene Negative ng/mL (CUTOFF:300); Tapentadol Negative ng/mL (CUTOFF:200); Tramadol Negative ng/mL (CUTOFF:200); Urine pH 8.7 (4.5-8.9)
== END ==
PROVIDERS: PCP Emergency Medicine; Visit Provider Nurse Practitioner Family
DX: F12.20 Cannabis dependence, uncomplicated (principal)
CPT/HCPCS: 80307

== ENCOUNTER → 2022-12-05 14:35 | Outpatient (CLI) | payer MEDICAID, SELFPAY ==
[2022-12-09 12:08] LABS: 6-Acetylmorphine Negative ng/mL (CUTOFF:10); Amphetamines Negative ng/mL (CUTOFF:300); Barbiturates Negative ng/mL (CUTOFF:200); Benzodiazepines Negative ng/mL (CUTOFF:50); Buprenorphine Negative ng/mL (CUTOFF:5); Carisoprodol Negative ng/mL (CUTOFF:100); Cocaine Metabolite Negative ng/mL (CUTOFF:150); Ethanol Biomarkers Negative ng/mL (CUTOFF:500); Fentanyl Negative ng/mL (CUTOFF:2.0); Gabapentin Negative ug/mL (CUTOFF:1.0); Marijuana MTB (THC) Negative ng/mL (CUTOFF:20); Methadone Negative ng/mL (CUTOFF:100); Nitrites Negative (NEGATIVE); Opiates Negative ng/mL (CUTOFF:100); Phencyclidine Negative ng/mL (CUTOFF:25); Propoxyphene Negative ng/mL (CUTOFF:300); Tapentadol Negative ng/mL (CUTOFF:200); Tramadol Negative ng/mL (CUTOFF:200); Urine pH 6.1 (4.5-8.9)
== END ==
PROVIDERS: PCP Emergency Medicine; Visit Provider Nurse Practitioner Family
DX: F12.20 Cannabis dependence, uncomplicated (principal)
CPT/HCPCS: 80307

== ENCOUNTER → 2022-12-17 13:55 | Outpatient (CLI) | payer MEDICAID, SELFPAY ==
[2022-12-24 20:08] LABS: 6-Acetylmorphine Negative ng/mL (CUTOFF:10); Amphetamines Negative ng/mL (CUTOFF:300); Barbiturates Negative ng/mL (CUTOFF:200); Benzodiazepines Negative ng/mL (CUTOFF:50); Buprenorphine Negative ng/mL (CUTOFF:5); Carisoprodol Negative ng/mL (CUTOFF:100); Cocaine Metabolite Negative ng/mL (CUTOFF:150); Ethanol Biomarkers Negative ng/mL (CUTOFF:500); Fentanyl Negative ng/mL (CUTOFF:2.0); Gabapentin Negative ug/mL (CUTOFF:1.0); Marijuana MTB (THC) Negative ng/mL (CUTOFF:20); Methadone Negative ng/mL (CUTOFF:100); Nitrites Negative (NEGATIVE); Opiates Negative ng/mL (CUTOFF:100); Phencyclidine Negative ng/mL (CUTOFF:25); Propoxyphene Negative ng/mL (CUTOFF:300); Tapentadol Negative ng/mL (CUTOFF:200); Tramadol Negative ng/mL (CUTOFF:200); Urine pH 8.8 (4.5-8.9)
== END ==
PROVIDERS: PCP Emergency Medicine; Visit Provider Nurse Practitioner Family
DX: F12.20 Cannabis dependence, uncomplicated (principal)
CPT/HCPCS: 80307

== ENCOUNTER → 2022-12-26 14:02 | Outpatient (CLI) | payer MEDICAID, SELFPAY ==
[2022-12-30 17:28] LABS: 6-Acetylmorphine Negative ng/mL (CUTOFF:10); Amphetamines Negative ng/mL (CUTOFF:300); Barbiturates Negative ng/mL (CUTOFF:200); Benzodiazepines Negative ng/mL (CUTOFF:50); Buprenorphine Negative ng/mL (CUTOFF:5); Carisoprodol Negative ng/mL (CUTOFF:100); Cocaine Metabolite Negative ng/mL (CUTOFF:150); Ethanol Biomarkers Negative ng/mL (CUTOFF:500); Fentanyl Negative ng/mL (CUTOFF:2.0); Gabapentin Negative ug/mL (CUTOFF:1.0); Marijuana MTB (THC) Negative ng/mL (CUTOFF:20); Methadone Negative ng/mL (CUTOFF:100); Nitrites Negative (NEGATIVE); Opiates Negative ng/mL (CUTOFF:100); Phencyclidine Negative ng/mL (CUTOFF:25); Propoxyphene Negative ng/mL (CUTOFF:300); Tapentadol Negative ng/mL (CUTOFF:200); Tramadol Negative ng/mL (CUTOFF:200); Urine pH 6.2 (4.5-8.9)
== END ==
PROVIDERS: PCP Emergency Medicine; Visit Provider Nurse Practitioner Family
DX: F12.20 Cannabis dependence, uncomplicated (principal)
CPT/HCPCS: 80307

== ENCOUNTER → 2023-01-04 08:56 | Outpatient (CLI) | payer MEDICAID, SELFPAY ==
[2023-01-08 21:08] LABS: 6-Acetylmorphine Negative ng/mL (CUTOFF:10); Amphetamines Negative ng/mL (CUTOFF:300); Barbiturates Negative ng/mL (CUTOFF:200); Benzodiazepines Negative ng/mL (CUTOFF:50); Buprenorphine Negative ng/mL (CUTOFF:5); Carisoprodol Negative ng/mL (CUTOFF:100); Cocaine Metabolite Negative ng/mL (CUTOFF:150); Ethanol Biomarkers Negative ng/mL (CUTOFF:500); Fentanyl Negative ng/mL (CUTOFF:2.0); Gabapentin Negative ug/mL (CUTOFF:1.0); Marijuana MTB (THC) ++POSITIVE++ ng/mL (CUTOFF:20); Methadone Negative ng/mL (CUTOFF:100); Nitrites Negative (NEGATIVE); Opiates Negative ng/mL (CUTOFF:100); Phencyclidine Negative ng/mL (CUTOFF:25); Propoxyphene Negative ng/mL (CUTOFF:300); Tapentadol Negative ng/mL (CUTOFF:200); Tramadol Negative ng/mL (CUTOFF:200); Urine pH 7.1 (4.5-8.9)
== END ==
PROVIDERS: PCP Emergency Medicine; Visit Provider Nurse Practitioner Family
DX: F12.20 Cannabis dependence, uncomplicated (principal)
CPT/HCPCS: 80307

== ENCOUNTER → 2023-01-07 14:04 | Outpatient (CLI) | payer MEDICAID, SELFPAY ==
[2023-01-13 13:00] LABS: 6-Acetylmorphine Negative ng/mL (CUTOFF:10); Amphetamines Negative ng/mL (CUTOFF:300); Barbiturates Negative ng/mL (CUTOFF:200); Benzodiazepines Negative ng/mL (CUTOFF:50); Buprenorphine Negative ng/mL (CUTOFF:5); Carisoprodol Negative ng/mL (CUTOFF:100); Cocaine Metabolite Negative ng/mL (CUTOFF:150); Ethanol Biomarkers Negative ng/mL (CUTOFF:500); Fentanyl Negative ng/mL (CUTOFF:2.0); Gabapentin Negative ug/mL (CUTOFF:1.0); Marijuana MTB (THC) Negative ng/mL (CUTOFF:20); Methadone Negative ng/mL (CUTOFF:100); Nitrites Negative (NEGATIVE); Opiates Negative ng/mL (CUTOFF:100); Phencyclidine Negative ng/mL (CUTOFF:25); Propoxyphene Negative ng/mL (CUTOFF:300); Tapentadol Negative ng/mL (CUTOFF:200); Tramadol Negative ng/mL (CUTOFF:200); Urine pH 5.6 (4.5-8.9)
== END ==
PROVIDERS: PCP Emergency Medicine; Visit Provider Nurse Practitioner Family
DX: F12.20 Cannabis dependence, uncomplicated (principal)
CPT/HCPCS: 80307

== ENCOUNTER → 2023-01-23 09:30 | Outpatient (CLI) | payer MEDICAID, SELFPAY ==
[2023-01-28 10:44] LABS: 6-Acetylmorphine Negative ng/mL (CUTOFF:10); Amphetamines Negative ng/mL (CUTOFF:300); Barbiturates Negative ng/mL (CUTOFF:200); Benzodiazepines Negative ng/mL (CUTOFF:50); Buprenorphine Negative ng/mL (CUTOFF:5); Carisoprodol Negative ng/mL (CUTOFF:100); Cocaine Metabolite Negative ng/mL (CUTOFF:150); Ethanol Biomarkers Negative ng/mL (CUTOFF:500); Fentanyl Negative ng/mL (CUTOFF:2.0); Gabapentin Negative ug/mL (CUTOFF:1.0); Marijuana MTB (THC) ++POSITIVE++ ng/mL (CUTOFF:20); Methadone Negative ng/mL (CUTOFF:100); Nitrites Negative (NEGATIVE); Opiates Negative ng/mL (CUTOFF:100); Phencyclidine Negative ng/mL (CUTOFF:25); Propoxyphene Negative ng/mL (CUTOFF:300); Tapentadol Negative ng/mL (CUTOFF:200); Tramadol Negative ng/mL (CUTOFF:200); Urine pH 5.7 (4.5-8.9)
== END ==
PROVIDERS: PCP Emergency Medicine; Visit Provider Nurse Practitioner Family
DX: F12.20 Cannabis dependence, uncomplicated (principal)
CPT/HCPCS: 80307

== ENCOUNTER 2023-04-20 13:50 | Emergency (ER) | payer MEDICAID, SELFPAY ==
[2023-04-20 14:20] VITALS: BP 124/76; PULSE 76; RESP 16; TEMP 37.2; O2SAT 98; BMI 23.8
[2023-04-20 14:41] LABS: UTC Strep Screen (Rapid) Negative (Negative)
--- NOTE | 2023-04-20 14:51 | EXP.UTC ---
Discharge Plan Disposition Patient Disposition: Home, Self-Care Condition: Good Prescriptions Prescriptions: New fluticasone propionate [Flonase Allergy Relief] 50 mcg/actuation spray,suspension 1 spray intranasal DAILY Qty: 16 0RF Rx Instructions: administer into each nostril Referrals Follow up/Referrals: Corby Bingham DO [Primary Care Provider] - See instructions Clinical Impressions Clinical Impression: Eustachian tube disorder Qualifiers: Laterality: bilateral Qualified Code(s): H69.93 - Unspecified Eustachian tube disorder, bilateral Instructions Patient Instructions: DI for Eustachian Tube Dysfunction-Adult Discharge ED Provider[place] Jerri Rah[place] [facility] [place] General Stated complaint: sore throat, left ear pain Mode of Arrival: Ambulatory Source of Information: Patient Limitations: No Limitations Time Seen by Provider: 04/20/23 14:51 Description of Symptoms (Recalled from Triage Doc. by RN): PATIENT C/O LEFT EAR PAIN AND LOW-GRADE FEVER SINCE YESTERDAY HEENT Symptoms (Recalled from RN notes): Yes Resp Symptoms (Recalled from RN notes): No Skin Symptoms (Recalled from RN notes): No MS Symptoms (Recalled from RN notes): No Functional Status (Recalled from RN notes): WNL History of Present Illness Provider Complaint: Pt complains of left ear pain and a low grade fever at home. She reports feeling drainage go down the back of her throat. Denies coughing. She states that she takes Loratadine daily. Related Data Previous Rx's Medication Instructions Recorded fluticasone propionate 50 1 spray intranasal DAILY #16 grams 04/20/23 mcg/actuation nasal spray,suspension (Flonase Allergy Relief) Allergies Allergy/AdvReac Type Severity Reaction Status Date / Time No Known Allergies Allergy Verified 07/07/22 11:19 Worker's Comp Is this a Worker's Comp case?: No [facility] Disclaimer: The information contained in this section may have been updated after the patient was seen, as this information can be updated by other users. Medical History (Updated 04/20/23 @ 14:57 by Jerri Rahman APRN) Abdominal pain Abdominal wall pain in left lower quadrant Abscess of forearm, left Abscess of left hand Anemia due to acute blood loss Ankle contusion Exposure to COVID-19 virus Foot contusion Hematoma complicating a procedure Hepatitis C History of DVT of lower extremity Low back pain Lumbar radiculopathy Medical clearance for incarceration Postprocedural hematoma of abdominal wall Scar tissue Sinusitis Thoracic back pain Thoracic spine pain URI (upper respiratory infection) Viral syndrome Social History Smoking Status: Current every day smoker tobacco type: e-cigarettes second hand exposure: No alcohol intake: never substance use type: former substance user and heroin current occupational status: other Travel in the last 8 weeks: None household members: other housing: house number of children: 2 current occupational exposures/hazards: No caffeine: Yes ROS Obtained: Yes All systems reviewed & no additional complaints except as documented Constitutional Constitutional: Reports system reviewed and no additional complaints, except as documented and Reports malaise Eyes Eyes: Reports system reviewed and no additional complaints, except as documented ENT Ears, Nose, Mouth, and Throat: Reports system reviewed and no additional complaints, except as documented, Reports otalgia and Reports sore throat Cardiovascular Cardiovascular: Reports system reviewed and no additional complaints, except as documented Respiratory Respiratory: Reports system reviewed and no additional complaints, except as documented Gastrointestinal Gastrointestingal: Reports system reviewed and no additional complaints, except as documented Genitourinary Female Genitourinary: Reports system reviewed and no additional complaints, except as documen
[2023-04-20 14:58] VITALS: BP 124/76; PULSE 76; RESP 16; TEMP 37.2; O2SAT 98
== END 2023-04-20 15:00 | disposition home or self-care (01) ==
PROVIDERS: Emergency Provider Nurse Practitioner Family; PCP Internal Medicine
DX: H69.93 Unspecified Eustachian tube disorder, bilateral (principal); R50.9 Fever, unspecified; R07.0 Pain in throat; R09.82 Postnasal drip; F17.290 Nicotine dependence, other tobacco product, uncomplicated
CPT/HCPCS: 87880; 99212; 99214; G0463

== ENCOUNTER 2023-06-23 18:15 | Emergency (ER) | payer MEDICAID, SELFPAY ==
[2023-06-23 18:20] VITALS: BP 118/71; PULSE 71; RESP 18; TEMP 37; O2SAT 100; BMI 22.6
--- NOTE | 2023-06-23 18:31 | EXP.UTC ---
Discharge Plan Disposition Patient Disposition: Home, Self-Care Condition: Good Prescriptions Prescriptions: New azithromycin [Zithromax] 250 mg tablet 250 mg PO UD DOSE PK Qty: 6 0RF Rx Instructions: Take two (2) tablets today, then one (1) tablet days #2 thru #5 methylprednisolone 4 mg Tablets,Dose Pack 4 mg PO DIRECTED 6 Days Qty: 21 0RF Rx Instructions: Take 1 pack as directed for 6 days [id number] [Bromfed DM] 2-30-10 mg/5 mL Syrup 5 ml PO Q6H PRN (Reason: Cough) Qty: 240 0RF ondansetron 4 mg Tablet,Disintegrating 4 mg PO Q8H PRN (Reason: Nausea) Qty: 8 0RF No Action fluticasone propionate [Flonase Allergy Relief] 50 mcg/actuation spray,suspension 1 spray intranasal DAILY Qty: 16 0RF Rx Instructions: administer into each nostril Referrals Follow up/Referrals: Corby Bingham DO [Primary Care Provider] - See instructions Activity Restrictions/Add. Instructions Additional Instructions/Restrictions: Drink plenty of fluids. Take tylenol or ibuprofen for pain or fever. Take the medications as directed. Follow up with your regular doctor. GO TO THE ER FOR ANY WORSENING SYMPTOMS Clinical Impressions Clinical Impression: Acute bronchitis, Acute viral syndrome Stand Alone Forms Stand Alone Forms: Work/School Release Instructions Patient Instructions: Acute Bronchitis, DI for Acute Bronchitis Discharge ED Provider: Beau Lujan [facility] General Stated complaint: sore throat, fever, body aches exposed to flu Time Seen by Provider: 06/23/23 18:30 History of Present Illness Provider Complaint: She states that for the past 1 day she has had fever, chills, sore throat, and a productive cough. She has been exposed to influenza b in her home. Related Data Previous Rx's Medication Instructions Recorded fluticasone propionate 50 1 spray intranasal DAILY #16 grams 04/20/23 mcg/actuation nasal spray,suspension (Flonase Allergy Relief) azithromycin 250 mg tablet 250 mg PO UD DOSE PK #6 tabs 06/23/23 (Zithromax) [id number]-[id number] 5 ml PO Q6H PRN Cough #240 mL 06/23/23 2 mg-30 mg-10 mg/5 mL oral syrup (Bromfed DM) methylprednisolone 4 mg tablets in 4 mg PO DIRECTED 6 days #21 tabs 06/23/23 a dose pack ondansetron 4 mg disintegrating 4 mg PO Q8H PRN Nausea #8 tabs 06/23/23 tablet Allergies Allergy/AdvReac Type Severity Reaction Status Date / Time No Known Allergies Allergy Verified 06/23/23 18:36 [facility] Disclaimer: The information contained in this section may have been updated after the patient was seen, as this information can be updated by other users. Medical History (Updated 06/23/23 @ 19:04 by Beau Lujan APRN) Abdominal pain Abdominal wall pain in left lower quadrant Abscess of forearm, left Abscess of left hand Anemia due to acute blood loss Ankle contusion Exposure to COVID-19 virus Foot contusion Hematoma complicating a procedure Hepatitis C History of DVT of lower extremity Low back pain Lumbar radiculopathy Medical clearance for incarceration Postprocedural hematoma of abdominal wall Scar tissue Sinusitis Thoracic back pain Thoracic spine pain URI (upper respiratory infection) Viral syndrome Social History Smoking Status: Current every day smoker tobacco type: e-cigarettes second hand exposure: No alcohol intake: never substance use type: former substance user and heroin current occupational status: other Travel in the last 8 weeks: None household members: other housing: house number of children: 2 current occupational exposures/hazards: No caffeine: Yes ROS Obtained: Yes All systems reviewed & no additional complaints except as documented Constitutional Constitutional: Reports chills and Reports fever(s) Eyes Eyes: Denies eye discharge ENT Ears, Nose, Mouth, and Throat: Reports as per HPI Cardiovascular Cardiovascular: Denies chest pain Respiratory Respiratory: Denies chest congestion and Reports cough Gastrointestinal Gastrointestingal: Reports nausea; Denies abdominal pain, constipation, cramping, diarrhea or vomiting Musculoskeletal Musculoskeletal: Denies arthralgias Integumentary/Breasts Skin/Breast: Denies rash Neurologic Neurologic: Denies paresthesias Physical Exam General General appearance: alert and in no apparent distress Head Head exam: atraumatic, normocephalic and normal inspection Eye Eye exam: Present normal appearance, PERRL and EOMI ENT ENT exam: Present mucous membranes moist and normal external ear exam Expanded ENT Exam TM/Canal exam: Bilateral TM: erythema and bulging Nose exam: Absent sinus tenderness Mouth exam: Present normal external inspection; Absent drooling Teeth exam: Present normal inspection Throat exam: Present tonsillar erythema, tonsillomegaly and tonsillar exudate Neck Neck exam: Present normal inspection, full ROM and trachea midline; Absent tenderness, meningismus or lymphadenopathy Chest Chest inspection: Present normal inspection and symmetric chest wall rise; Absent tenderness Respiratory Respiratory exam: Present normal lung sounds bilaterally; Absent respiratory distress, wheezes or stridor Cardiovascular Cardiovascular exam: Present regular rate and normal rhythm; Absent systolic murmur or diastolic murmur Abdominal Exam Abdominal exam: Present soft and normal bowel sounds; Absent distention, tenderness, guarding, rebound or rigidity Extremities Exam Extremities exam: Present normal inspection and normal capillary refill; Absent calf tenderness Back Exam Back exam: Present normal inspection and full ROM; Absent tenderness, CVA tenderness (R) or CVA tenderness (L) Neurological Exam Neurological exam: Present alert, oriented X3 and CN II-XII intact Psychiatric Psychiatric exam: Present normal affect and normal mood Skin Skin exam: Present warm, dry, intact and normal color Medical Decision Making Medical Records Medical records reviewed: No I reviewed the patient's medical records. Shaheed Inquiry Pt receiving controlled substance: No Lab Data Lab results reviewed: Yes I reviewed the patient's lab results.
[2023-06-23 18:50] LABS: UTC Influenza A Antigen Negative (Negative); UTC Influenza B Antigen Negative (Negative); UTC Strep Screen (Rapid) Negative (Negative)
[2023-06-23 19:08] VITALS: BP 118/71; PULSE 71; RESP 18; TEMP 37; O2SAT 100
== END 2023-06-23 19:09 | disposition home or self-care (01) ==
PROVIDERS: Emergency Provider Nurse Practitioner Family; PCP Internal Medicine
DX: J20.8 Acute bronchitis due to other specified organisms (principal); R50.9 Fever, unspecified; R07.0 Pain in throat; R05.8 Other specified cough; B34.9 Viral infection, unspecified; F17.290 Nicotine dependence, other tobacco product, uncomplicated; Z20.828 Contact with and (suspected) exposure to other viral communicable diseases
CPT/HCPCS: 87804; 87880; 99212; 99214; G0463

== ENCOUNTER 2024-05-11 10:17 | Emergency (ER) | payer MEDICAID, SELFPAY ==
[2024-05-11 11:40] VITALS: BP 124/71; PULSE 61; RESP 18; TEMP 36.8; O2SAT 99; BMI 23.9
[2024-05-11 11:52] LABS: Coronavirus 19, PCR Not Detected (NotDetected); Influenza A, PCR Not Detected (NotDetected); Influenza B, PCR Not Detected (NotDetected)
--- NOTE | 2024-05-11 11:55 | EXP.UTC ---
Discharge Plan Disposition Patient Disposition: Home, Self-Care Condition: Good Prescriptions Prescriptions: No Action No Known Home Medications Referrals Follow up/Referrals: Corby Bingham DO [Primary Care Provider] - See instructions Activity Restrictions/Add. Instructions Additional Instructions/Restrictions: *Monitor Temp, Over the counter Motrin or Tylenol as directed/as needed Tylenol every 4 hours and Motrin every 6 hours (as long as your family doctor has told you that you can take it) for fever or pain. and straight to ER if unable to lower temp less than 101.0 after medication given *Warm salt water gargles may help to soothe the throat *Throat Lozenges? *Warm fluids like tea with honey may help to soothe the throat? *Sleep elevated *Humidifier/Vaporizer *Your throat swab was sent for culture. Those results are typically sent to your primary care. Be sure to follow up in 2-3 days with your family doctor/primary care physician if no improvement so they can review those result and treat if necessary. If you don?t have a primary care doctor, I recommend you get one but in the mean time, you will have to return to a walk in clinic Follow up IMMEDIATELY for new or worsening symptoms or no Noticeable improvement over the next 48-72 hours. 911 for difficulty breathing or swallowing You were tested for today for Rapid COVID19 and Influenza A & B, your test result should be back later today and will be available for viewing on your [facility] [employer] [facility] Portal Clinical Impressions Clinical Impression: Viral syndrome Stand Alone Forms Stand Alone Forms: Work/School Release Instructions Patient Instructions: DI for Viral Syndrome Print Language Print Language: Japanese Discharge ED Provider: Mirian Medina [facility] [place] General Stated complaint: sore throat, fever, nausea, vomiting Mode of Arrival: Ambulatory Source of Information: Patient Limitations: No Limitations Time Seen by Provider: 05/11/24 11:58 Description of Symptoms (Recalled from Triage Doc. by RN): PATIENT C/O SORE THROAT, CHEST CONGESTION, NAUSEA, DIARRHEA, AND BODY ACHES SINCE SATURDAY HEENT Symptoms (Recalled from RN notes): Yes Resp Symptoms (Recalled from RN notes): No Skin Symptoms (Recalled from RN notes): No MS Symptoms (Recalled from RN notes): No Functional Status (Recalled from RN notes): WNL History of Present Illness Provider Complaint: Patient states that she started feeling bad on Saturday with sore throat, bodyaches and chills with Nausea and diarrhea States that son has same symptoms and tested positive earlier today for strep, flu and COVID States her work wanted her to come in and get tested also Related Data Home Medications ?Medication ?Instructions ?Recorded ?Confirmed No Known Home Medications 05/11/24 05/11/24 Allergies Allergy/AdvReac Type Severity Reaction Status Date / Time No Known Allergies Allergy Verified 06/23/23 18:36 Worker's Comp Is this a Worker's Comp case?: No [facility] Disclaimer: The information contained in this section may have been updated after the patient was seen, as this information can be updated by other users. Medical History (Updated 05/11/24 @ 12:02 by Mirian Medina APRN) Foot contusion Ankle contusion Thoracic back pain Low back pain Abdominal pain Sinusitis Exposure to COVID-19 virus Viral syndrome URI (upper respiratory infection) Abdominal wall pain in left lower quadrant Hematoma complicating a procedure Thoracic spine pain Lumbar radiculopathy Scar tissue Postprocedural hematoma of abdominal wall Anemia due to acute blood loss History of DVT of lower extremity Hepatitis C Medical clearance for incarceration Abscess of forearm, left Abscess of left hand Social History Smoking Status: Current every day smoker tobacco type: e-cigarettes second hand exposure: No alcohol intake: never substance use type: former substance user and heroin current occupational status: other Travel in the last 8 weeks: None household members: other housing: house number of children: 2 current occupational exposures/hazards: No caffeine: Yes Have you lived/traveled outside [place] in past 30 days?: No Contact w/someone who lives/traveled outside [place] past 30 days?: No Exposure to someone with infectious disease in past 14 days?: Yes Do you have a fever (greater than 100.4 F or 38 C)?: Yes Have you tested positive for COVID-19: No Exposed to someone with COVID-19 in past 14 days?: Yes Do you have a sore throat?: Yes Do you have a cough?: No Do you have any weakness?: Yes Do you have any diarrhea?: No Are you experiencing any unusual bleeding?: No Do you have any muscle aches/pain?: No Do you have any abdominal pain?: No Are you experiencing loss of taste or smell?: No ROS Obtained: Yes All systems reviewed & no additional complaints except as documented and Yes Systems reviewed as appropriate & no additional complaints except as documented Constitutional Constitutional: Reports system reviewed and no additional complaints, except as documented, Reports as per HPI, Reports body ache, Reports chills, Reports fever(s) and Reports headache(s) ENT Ears, Nose, Mouth, and Throat: Reports system reviewed and no additional complaints, except as documented, Reports as per HPI, Reports headache(s) and Reports sore throat Cardiovascular Cardiovascular: Reports system reviewed and no additional complaints, except as documented and Reports as per HPI Respiratory Respiratory: Reports system reviewed and no additional complaints, except as documented and Reports as per HPI Gastrointestinal Gastrointestingal: Reports system reviewed and no additional complaints, except as documented, as per HPI, diarrhea and nausea; Denies abdominal pain Neurologic Neurologic: Reports headache(s) Physical Exam General General appearance: alert and in no apparent distress ENT ENT exam: Present mucous membranes moist Expanded ENT Exam Throat exam: Present tonsillar erythema; Absent tonsillomegaly or tonsillar exudate Respiratory Respiratory exam: Present normal lung sounds bilaterally; Absent respiratory distress or wheezes Cardiovascular Cardiovascular exam: Present regular rate, normal rhythm and normal heart sounds Neurological Exam Neurological exam: Present alert, oriented X3 and normal gait Medical Decision Making Medical Records Screening: Per USPSTF and CDC recommendations, given the prevalence of disease in our region, it is our hospital?s policy to screen for HIV and viral Hepatitis for all patients aged 18 and over and those with ongoing risk factors. Shaheed Inquiry Pt receiving controlled substance: No Shaheed was queried for this patient: No Vital Signs: 05/11/24 11:40 Temperature 98.3 F Temperature Source Oral Pulse Rate [Left Brachial] 61 Respiratory Rate 18 Blood Pressure [Left Arm] 124/71 Blood Pressure Mean [Left Arm] 88 Blood Pressure Source [Left Arm] Automatic Cuff Blood Pressure Position [Left Arm] Sitting 02 Sat by Pulse Oximetry 99 Oxygen Delivery Method Room Air Lab Data Lab results reviewed: Yes I reviewed the patient's lab results. Orders (Tests/Meds): ORDERS Category Date Time Status Rapid PCR Covid and Flu A/B Stat Lab 05/11/24 11:40 Received
[2024-05-11 12:03] LABS: UTC Strep Screen (Rapid) Negative (Negative)
[2024-05-11 12:06] VITALS: BP 124/71; PULSE 61; RESP 18; TEMP 37.2; O2SAT 99
== END 2024-05-11 12:09 | disposition home or self-care (01) ==
PROVIDERS: Emergency Provider Nurse Practitioner; PCP Internal Medicine
DX: B34.9 Viral infection, unspecified (principal); R50.9 Fever, unspecified; R11.2 Nausea with vomiting, unspecified; J02.9 Acute pharyngitis, unspecified; R09.89 Other specified symptoms and signs involving the circulatory and respiratory systems; R19.7 Diarrhea, unspecified; M79.10 Myalgia, unspecified site; R51.9 Headache, unspecified; Z20.828 Contact with and (suspected) exposure to other viral communicable diseases
CPT/HCPCS: 87636; 87880; 99212; G0381

== ENCOUNTER 2024-06-18 09:41 | Outpatient (CLI) | payer MEDICAID, SELFPAY | END 2024-06-18 23:59 | disposition home or self-care (01) | LOC: LAB.DROPOF 06-19 12:13 | PROVIDERS: PCP Student in an Organized Health Care Education/Training Program; Visit Provider Student in an Organized Health Care Education/Training Program | DX: J02.9 Acute pharyngitis, unspecified (principal); Z72.0 Tobacco use | CPT/HCPCS: 87070 ==